=== PATIENT | male | born 1955 | race Hispanic/Latino ===

== ENCOUNTER 2016-12-02 00:36 | Emergency (ER) | payer MEDICARE, OTHER ==
[2016-12-02 00:43] VITALS: BMI 26.6
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
[2016-12-02 05:59] VITALS: BP 118/72; PULSE 84; RESP 16; TEMP 98.2; O2SAT 98
== END 2016-12-02 06:08 | disposition home or self-care (01) ==
LOC: H.ER 00:36
DX: F10.10 Alcohol abuse, uncomplicated (principal); I10 Essential (primary) hypertension

== ENCOUNTER 2017-09-02 10:10 | Emergency (ER) | payer MEDICARE, OTHER ==
[2017-09-02 10:35] VITALS: BMI 24.7
[2017-09-02 10:37] VITALS: O2SAT 96
--- NOTE | 2017-09-02 12:55 | ED PDOC ---
HPI: General Adult Time Seen by Provider: 09/02/17 10:58 Chief Complaint (Nursing): Abnormal Skin Integrity History Per: Patient Additional Complaint(s): Pt. states on 08/31/2017 he had a removal of a spinal implant device for pain done by Dr. Narvaez in [facility]. States when got home yesterday he noticed that there was blood on his shirt. Also states he has been unable to get the prescribed Keflex 500mg from the pharmacy. Denies pain, fever, discharge. Past Medical History Reviewed: Historical Data, Nursing Documentation, Vital Signs Vital Signs: Last Vital Signs Temp 97.8 F 09/02/17 10:35 Pulse 80 09/02/17 10:35 Resp 20 09/02/17 10:35 BP 181/95 H 09/02/17 10:35 Pulse Ox 96 09/02/17 10:35 - Medical History PMH: Arthritis, Back Problems, HTN Denies: Anemia - Surgical History Other surgeries: spinal implant surgery - Family History Family History: States: No Known Family Hx - Home Medications Home Medications: Ambulatory Orders Medication Instructions Recorded Unobtainable 12/02/16 - Allergies Allergies/Adverse Reactions: Allergies Allergy/AdvReac Type Severity Reaction Status Date / Time No Known Allergies Allergy Verified 09/02/17 10:54 Review of Systems ROS Statement: Except As Marked, All Systems Reviewed And Found Negative Physical Exam - Physical Exam Appears: Positive for: Well, Non-toxic, No Acute Distress Skin: Positive for: Normal Color, Warm. Negative for: Rash Eye Exam: Positive for: Normal appearance Back: Positive for: Other (Both wounds with telfa and tagaderm dressing which has mild amount of bood. After removal of dressing back exam showed: Vertical healing stapled wound on LS spine without fluctuance, tenderness, bleeding, redness, warmth, dehisence, or discharge; R lower back area with healing stapled wound without bleeding, discharge, tenderness, fluctuance, tenderness, redness, warmth) Neurologic/Psych: Positive for: Alert, Oriented - ECG O2 Sat by Pulse Oximetry: 96 - Progress ED Course And Treament: New tagaderm and telfa dressing placed on wounds. Advised to f/u with Dr. Narvaez (09/12/2017 as scheduled) but should call him today. Keflex 500mg PO ordered. Also told to obtain Keflex from pharmacy. Disposition - Clinical Impression Clinical Impression: Visit for wound check - Patient ED Disposition Is Patient to be Admitted: No - Disposition Disposition: Routine/Home Disposition Time: 11:50 Condition: STABLE Additional Instructions: Follow up with Dr. Narvaez for further evaluation. Return to ED immediately for any concerns or questions. Instructions: Wound Care (DC) Forms: [employer] (Romanian) Print Language: BULGARIAN
[2017-09-02 15:11] VITALS: BP 145/78; PULSE 85; RESP 16; TEMP 98.3
== END 2017-09-02 12:24 | disposition home or self-care (01) ==
LOC: H.ER 10:10
DX: Z48.01 Encounter for change or removal of surgical wound dressing (principal); Z98.890 Other specified postprocedural states; I10 Essential (primary) hypertension

== ENCOUNTER 2017-11-09 21:12 | Emergency (ER) | payer OTHER ==
[2017-11-09 21:12] VITALS: BMI 25.1
[2017-11-09 23:41] LABS: BASO # 0.1 K/uL (0.0-0.2); BASO % 1.2 % (0.0-2.0); EOS # 0.2 K/uL (0.0-0.7); EOS % 2.8 % (0.0-4.0); HEMOGLOBIN 12.9 g/dL (12.0-18.0); LYMPH # 2.4 K/uL (1.0-4.3); LYMPH % 37.2 % (20.0-40.0); MEAN CORPUSCULAR HEMOGLOBIN 31.5 pg (27.0-31.0); MEAN CORPUSCULAR HGB CONC 33.9 g/dL (33.0-37.0); MEAN PLATELET VOLUME 9.2 fl (7.2-11.7); MONO # 1.1 K/uL (0.0-0.8); MONO % 16.8 % (0.0-10.0); NEUT # 2.7 K/uL (1.8-7.0); RBC 4.1 Mil/uL (4.40-5.90); RED CELL DISTRIBUTION WIDTH 14.5 % (11.5-14.5); WHITE BLOOD COUNT 6.4 K/uL (4.8-10.8)
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
[2017-11-09 23:53] LABS: ALB/GLOB RATIO 1.2 (1.0-2.1); ALBUMIN 4.3 g/dL (3.5-5.0); ALT/SGPT 81 U/L (21-72); AST/SGOT 92 U/L (17-59); BLOOD UREA NITROGEN 35 mg/dl (9-20); CALCIUM 9.7 mg/dL (8.4-10.2); GFR NON-AFRICAN AMERICAN 28
[2017-11-09] MEDS ORDERED: Sodium Chloride 0.9% 1,000 ML IV STA (23:56)
--- NOTE | 2017-11-10 00:03 | ED PDOC ---
- Laboratory Results Result Diagrams: 11/09/17 23:35 11/09/17 23:35 - ECG O2 Sat by Pulse Oximetry: 97 (RA) Pulse Ox Interpretation: Normal Medical Decision Making Medical Decision Makin:00 --care endorsed to this provider by Dr. Villela pending reevaluation and final disposition. 00:55 --Ativan 2 mg IVP --1:1 observation --urinary catheter 02:35 --Haldol 5 mg IV 06:26 --Patient is stable for discharge. Diagnosis is substance abuse. Return precautions provided. Scribe Attestation: Documented by Angie Damon acting as a scribe for Rajesh Noble MD Provider Scribe Attestation: All medical record entries made by the Scribe were at my direction and personally dictated by me. I have reviewed the chart and agree that the record accurately reflects my personal performance of the history, physical exam, medical decision making, and the department course for this patient. I have also personally directed, reviewed, and agree with the discharge instructions and disposition. Disposition - Clinical Impression Clinical Impression: Substance abuse - POA Present On Arrival: None - Disposition Disposition: Routine/Home Disposition Time: 06:26 Condition: STABLE Forms: [employer] (Lebanese)
[2017-11-10 03:24] VITALS: RESP 18
[2017-11-10 07:04] VITALS: BP 139/86; PULSE 68; TEMP 97.5
[2017-11-10 07:23] LABS: SQUAMOUS EPITHIAL < 1 /hpf (0-5); URINE BACTERIA RARE (<OCC); URINE BILIRUBIN NEGATIVE (NEGATIVE); URINE BLOOD NEGATIVE (NEGATIVE); URINE CLARITY SLIGHTY-CLOUDY (Clear); URINE COLOR YELLOW (YELLOW); URINE GLUCOSE (UA) NEG (Normal); URINE HYALINE CAST >20 /hpf (0-2); URINE LEUKOCYTE ESTERASE NEG Leu/uL (Negative); URINE PROTEIN NEGATIVE (NEGATIVE); URINE UROBILINOGEN 0.2-1.0 mg/dL (0.2-1.0)
[2017-11-10 07:36] LABS: BARBITURATES, UR NEGATIVE (NEGATIVE); BENZODIAZEPINES, UR POSITIVE (NEGATIVE); OPIATES, UR POSITIVE (NEGATIVE); PHENCYCLIDINE, UR NEGATIVE (NEGATIVE)
--- NOTE | 2017-11-10 08:25 | CARD ---
APPROVED REPORT Date of service: 11/09/2017 <Conclusion> Normal sinus rhythm Normal ECG
--- NOTE | 2017-11-10 09:35 | CT ---
Date of service: 11/09/2017 PROCEDURE: CT HEAD WITHOUT CONTRAST. HISTORY: change in mental status COMPARISON: Comparison made with prior study dated 03/02/2016. TECHNIQUE: Axial computed tomography images were obtained through the head/brain without intravenous contrast. Radiation dose: Total exam DLP = 894.78 mGy-cm. This CT exam was performed using one or more of the following dose reduction techniques: Automated exposure control, adjustment of the mA and/or kV according to patient size, and/or use of iterative reconstruction technique. FINDINGS: HEMORRHAGE: No acute parenchymal, subarachnoid or extra-axial hemorrhage. BRAIN: Mild chronic periventricular white matter ischemic changes seen extending peripherally into deep and to a lesser degree subcortical white matter both cerebral hemispheres. Note the possibility of a small hyperacute infarct cannot be excluded on this exam. Mild generalized volume loss VENTRICLES: No obstructive hydrocephalus. CALVARIUM: Unremarkable. PARANASAL SINUSES: Unremarkable as visualized. No significant inflammatory changes. MASTOID AIR CELLS: Unremarkable as visualized. No inflammatory changes. OTHER FINDINGS: Questionable mild left facial soft tissue swelling IMPRESSION: No acute intracranial hemorrhage. Mild chronic periventricular white matter ischemic changes. Note the possibility of a small hyperacute infarct can't be excluded on this exam. Mild generalized volume loss
[2017-11-11 01:59] VITALS: O2SAT 97
== END 2017-11-10 10:15 | disposition home or self-care (01) ==
LOC: H.ER 21:12
DX: I10 Essential (primary) hypertension (principal); F19.10 Other psychoactive substance abuse, uncomplicated
CPT/HCPCS: 70450; 80053; 81003; 82948; 85025; 87086; 93005; 96361; 96372; 96374; 99285; G0480; J1630; J2060; J7030

== ENCOUNTER 2017-11-21 20:56 | Emergency (ER) | payer OTHER ==
[2017-11-21 20:56] VITALS: BMI 25.1
[2017-11-21 21:00] VITALS: O2SAT 99
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
[2017-11-21 22:51] LABS: BASO # 0.1 K/uL (0.0-0.2); BASO % 1.1 % (0.0-2.0); EOS # 0.2 K/uL (0.0-0.7); EOS % 2.4 % (0.0-4.0); HEMOGLOBIN 12.7 g/dL (12.0-18.0); LYMPH # 2.5 K/uL (1.0-4.3); MEAN CELL VOLUME 93.7 fl (80.0-94.0); MEAN CORPUSCULAR HEMOGLOBIN 31.6 pg (27.0-31.0); MEAN CORPUSCULAR HGB CONC 33.7 g/dL (33.0-37.0); MEAN PLATELET VOLUME 9.4 fl (7.2-11.7); MONO # 0.6 K/uL (0.0-0.8); MONO % 8.4 % (0.0-10.0); NEUT # 4.2 K/uL (1.8-7.0); NEUT % 55.1 % (50.0-75.0); NRBC % 0.1 % (0.0-0.0); RBC 4.03 Mil/uL (4.40-5.90); RED CELL DISTRIBUTION WIDTH 14.4 % (11.5-14.5); WHITE BLOOD COUNT 7.7 K/uL (4.8-10.8)
[2017-11-21 23:02] LABS: ALB/GLOB RATIO 1.2 (1.0-2.1); ALBUMIN 3.9 g/dL (3.5-5.0); ALT/SGPT 291 U/L (21-72); AST/SGOT 309 U/L (17-59); BLOOD UREA NITROGEN 14 mg/dl (9-20); CALCIUM 9.4 mg/dL (8.4-10.2); GFR NON-AFRICAN AMERICAN > 60
[2017-11-21] MEDS ORDERED: Lidocaine/Epi 1% 1:100000 20 ML IJ ONE (23:23)
[2017-11-21] MEDS ORDERED: Iohexol 240 (50 ml) ONE (23:35)
[2017-11-21] MEDS ORDERED: Lidocaine 1% w Epi 1:100,000 Inj ONE (23:35)
[2017-11-22 00:37] LABS: BARBITURATES, UR NEGATIVE (NEGATIVE); BENZODIAZEPINES, UR POSITIVE (NEGATIVE); OPIATES, UR NEGATIVE (NEGATIVE); PHENCYCLIDINE, UR NEGATIVE (NEGATIVE)
[2017-11-22 02:15] VITALS: BP 149/94; PULSE 99; RESP 16; TEMP 98.1
--- NOTE | 2017-11-22 10:13 | CT ---
Date of service: 11/21/2017 PROCEDURE: CT HEAD WITHOUT CONTRAST. HISTORY: ETOH, head injury COMPARISON: 11/09/2017 fernández TECHNIQUE: Axial computed tomography images were obtained through the head/brain without intravenous contrast. Radiation dose: Total exam DLP = 1021.72 MGy-cm. This CT exam was performed using one or more of the following dose reduction techniques: Automated exposure control, adjustment of the mA and/or kV according to patient size, and/or use of iterative reconstruction technique. FINDINGS: HEMORRHAGE: No intracranial hemorrhage. BRAIN: There are mild chronic microangiopathic changes. There is no mass, mass effect or abnormal extra-axial fluid collection. There is no territorial infarction. The midline sagittal structures are normal. VENTRICLES: There is mild age-related global parenchymal volume loss and proportionate enlargement of the ventricles and cortical sulci. CALVARIUM: There is no calvarial fracture. There is mild right frontal and periorbital soft tissue swelling. PARANASAL SINUSES: Predominantly clear. MASTOID AIR CELLS: Predominantly clear. OTHER FINDINGS: None. IMPRESSION: No acute intracranial abnormality. Mild right frontal and periorbital soft tissue swelling. No other significant interval change.
--- NOTE | 2017-11-22 10:52 | CT ---
Date of service: 11/21/2017 PROCEDURE: CT Cervical Spine without contrast HISTORY: ETOH, injury COMPARISON: None available. TECHNIQUE: Axial computed tomography images were obtained of the cervical spine without the use of intravenous contrast. Coronal and sagittal reformatted images were created and reviewed. Radiation dose: Total exam DLP = 393.74 MGy-cm. This CT exam was performed using one or more of the following dose reduction techniques: Automated exposure control, adjustment of the mA and/or kV according to patient size, and/or use of iterative reconstruction technique. FINDINGS: VERTEBRAE: There are acute nondisplaced fractures in the right 6th inferior articular processes and right 7th superior articular process. . There is mild degenerative anterior listhesis of C3 on C4. There is diffuse bone demineralization. There is no traumatic anterior listhesis. Status post ACDF at C4-5 and C5-6. The craniocervical junction is normal. The atlantoaxial joint is normal. DISCS/SPINAL CANAL/NEURAL FORAMINA: Status post ACDF at C4-5 and C5-6. There is severe degenerative disc disease at C6-7 an C7-T1 with near complete loss of disc height. PARASPINAL SOFT TISSUES: The paraspinous soft tissues are normal. OTHER FINDINGS: There is biapical paraseptal emphysema. IMPRESSION: Acute nondisplaced fractures in the right 6th inferior articular process and 7th superior articular process. No traumatic anterior listhesis. A preliminary report was provided by [facility] services.
--- NOTE | 2017-11-22 11:06 | CT ---
Date of service: 11/21/2017 PROCEDURE: CT MAXILLOFACIAL BONES WITHOUT CONTRAST HISTORY: ETOH, fall COMPARISON: None available. TECHNIQUE: Contiguous axial CT images of the maxillofacial bones were obtained. Coronal and sagittal reformats were generated. Radiation dose: Total exam DLP = 831.34 mGy-cm. This CT exam was performed using one or more of the following dose reduction techniques: Automated exposure control, adjustment of the mA and/or kV according to patient size, and/or use of iterative reconstruction technique. FINDINGS: NASAL BONES: There are old fracture deformities in the nasal bones. ORBITS: No acute fracture. The globes are symmetric. No evidence of retro bulbar or intra bulbar hemorrhage or lens dislocation. There is mild right periorbital soft tissue swelling. PARANASAL SINUSES/ MASTOIDS: Predominantly clear. MAXILLA: No acute maxillofacial fracture. MANDIBLE/ TEMPOROMANDIBULAR JOINTS: No acute fracture in the mandible. There is anterior displacement of the left mandibular condyle. SKULL BASE: Unremarkable. TEMPORAL BONES: Middle ears and mastoid grossly unremarkable. OTHER FINDINGS: None. IMPRESSION: No acute orbital or maxillofacial fracture. Mild right periorbital soft tissue swelling. Anterior displacement of the left mandibular condyle.
== END 2017-11-22 02:10 | disposition home or self-care (01) ==
LOC: H.ER 20:56
DX: F19.10 Other psychoactive substance abuse, uncomplicated (principal); S00.11XA Contusion of right eyelid and periocular area, initial encounter; S01.81XA Laceration without foreign body of other part of head, initial encounter; S12.100A Unspecified displaced fracture of second cervical vertebra, initial encounter for closed fracture; S00.81XA Abrasion of other part of head, initial encounter; Y04.0XXA Assault by unarmed brawl or fight, initial encounter; Y92.89 Other specified places as the place of occurrence of the external cause; I10 Essential (primary) hypertension
CPT/HCPCS: 12011; 70450; 70486; 72125; 80053; 85025; 96372; 99285; G0480; J1885

== ENCOUNTER 2017-11-29 01:15 | Emergency (ER) | payer OTHER ==
[2017-11-29 01:15] VITALS: BMI 25.1
[2017-11-29 01:40] VITALS: RESP 18; TEMP 98.6
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
[2017-11-29 02:44] VITALS: BP 135/87; PULSE 78
[2017-11-29 06:06] VITALS: O2SAT 100
--- NOTE | 2017-11-29 08:18 | RAD ---
Date of service: 11/29/2017 HISTORY: shortness of breath COMPARISON: 02/02/2015 TECHNIQUE: Chest PA and lateral FINDINGS: LUNGS: No interval consolidation. PLEURA: No significant pleural effusion identified. No pneumothorax apparent. CARDIOVASCULAR: Normal heart size. Probable minimal mild pulmonary venous congestion. OSSEOUS STRUCTURES: Bilateral chronic appearing healed rib fracture deformities noted Anterior cervical fusion hardware plate present. Asymmetrically widened left acromioclavicular space possible prior resection lateral clavicle-correlate clinically. VISUALIZED UPPER ABDOMEN: Clips near GE junction OTHER FINDINGS: None. IMPRESSION: Probable minimal-mild pulmonary venous congestion. Other cardiopulmonary pathology noted Chronic appearing osseous changes as detailed
== END 2017-11-29 02:40 | disposition home or self-care (01) ==
LOC: H.ER 01:15
DX: Z48.02 Encounter for removal of sutures (principal); F41.9 Anxiety disorder, unspecified
CPT/HCPCS: 71046; 96372; 99283; J1885

== ENCOUNTER 2017-12-13 16:03 | Emergency (ER) | payer OTHER ==
[2017-12-13 16:03] VITALS: BMI 25.1
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
[2017-12-13 23:00] VITALS: RESP 18
[2017-12-13 23:36] VITALS: BP 122/80; PULSE 78; TEMP 98
[2017-12-14 00:02] VITALS: O2SAT 95
--- NOTE | 2017-12-14 09:03 | CT ---
Date of service: 12/13/2017 PROCEDURE: CT HEAD WITHOUT CONTRAST. HISTORY: fall, head injury COMPARISON: 11/21/2017 TECHNIQUE: Axial computed tomography images were obtained through the head/brain without intravenous contrast. Radiation dose: Total exam DLP = 996.0 mGy-cm. This CT exam was performed using one or more of the following dose reduction techniques: Automated exposure control, adjustment of the mA and/or kV according to patient size, and/or use of iterative reconstruction technique. FINDINGS: HEMORRHAGE: No intracranial hemorrhage. BRAIN: No mass effect or edema. No significant atrophy. Mild chronic periventricular white matter ischemic change. No evidence of acute infarct. VENTRICLES: Unremarkable. No hydrocephalus. CALVARIUM: Unremarkable. PARANASAL SINUSES: Unremarkable as visualized. No significant inflammatory changes. MASTOID AIR CELLS: Unremarkable as visualized. No inflammatory changes. OTHER FINDINGS: None. IMPRESSION: No intracranial mass, hemorrhage or evidence of acute infarct. Mild chronic white matter ischemic change. Otherwise unremarkable examination. The preliminary findings for this examination were reported by [facility] at 8:29 p.m. on 12/13/2017. There is concurrence of this report with the preliminary findings.
== END 2017-12-13 23:35 | disposition home or self-care (01) ==
LOC: H.ER 16:03
DX: F10.129 Alcohol abuse with intoxication, unspecified (principal); S09.90XA Unspecified injury of head, initial encounter; W19.XXXA Unspecified fall, initial encounter; Y92.89 Other specified places as the place of occurrence of the external cause; G89.29 Other chronic pain; I10 Essential (primary) hypertension
CPT/HCPCS: 70450; 99283; G0480

== ENCOUNTER 2018-02-10 14:24 | Emergency (ER) | payer OTHER ==
[2018-02-10 14:24] VITALS: BMI 25.8
[2018-02-10 14:27] VITALS: O2SAT 97
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
[2018-02-10 16:21] VITALS: BP 113/82; PULSE 99; RESP 19; TEMP 98.4
== END 2018-02-10 15:53 | disposition home or self-care (01) ==
LOC: H.ER 14:24
DX: F10.19 Alcohol abuse with unspecified alcohol-induced disorder (principal); Y90.9 Presence of alcohol in blood, level not specified

== ENCOUNTER 2018-02-20 09:43 | Inpatient (IN) | payer MEDICARE, OTHER ==
--- NOTE | 2018-02-20 10:09 | ED PDOC ---
HPI: Neurologic - General Time Seen by Provider: 02/20/18 10:02 Chief Complaint (Nursing): Upper Extremity Problem/Injury Chief Complaint (Provider): Neck pain Source: patient - History of Present Illness Allergies/Adverse Reactions: Allergies No Known Allergies Allergy (Verified 02/23/18 13:02) Home Medications: Ambulatory Orders Prazosin HCl [Minipress] 2 mg PO HS 02/06/18 Zolpidem Tartrate [Ambien Cr] 12.5 mg PO HS 02/06/18 Ascorbic Acid [Vitamin C] 1,000 mg PO DAILY 02/20/18 DULoxetine [Cymbalta] 60 mg PO DAILY 02/20/18 Lisinopril [Zestril] 20 mg PO DAILY 02/20/18 diaZEpam [Valium] 10 mg PO BID 02/20/18 hydroCHLOROthiazide [Microzide] 12.5 mg PO DAILY 02/20/18 Cyclobenzaprine [Flexeril] 10 mg PO Q8 PRN #30 tab 02/22/18 Docusate [Colace] 100 mg PO BID #30 cap 02/22/18 Famotidine [Pepcid] 20 mg PO BID tab 02/23/18 oxyCODONE/Acetaminophen [Percocet 5/325 mg Tab] 1 tab PO Q4 PRN tab 02/23/18 Additional Complaint(s): Pt with h/o multiple cervical surgeries presents with worsening R sided neck pain after falling >1 month ago. Reports neck pain radiates down R arm, "electricity". Past Medical History Reviewed: Nursing Documentation, Vital Signs Vital Signs: Last Vital Signs Temp 97.4 F L 02/20/18 09:53 Pulse 88 02/20/18 09:53 Resp 18 02/20/18 09:53 BP 123/82 02/20/18 09:53 Pulse Ox 99 02/20/18 09:53 - Medical History PMH: Arthritis (general,hands), Back Problems, Depression, HTN, Post Traumatic Stress Disorder, Chronic Pain (neck) Denies: Anemia, Chronic Kidney Disease - Surgical History Surgical History: Appendectomy, Back Surgery, Cholecystectomy, Hernia Repair - Family History Family History: States: Unknown Family Hx - Social History Current smoker - smoking cessation education provided: No Alcohol: Occasional - Immunization History Hx Tetanus Toxoid Vaccination: Yes Hx Influenza Vaccination: No Hx Pneumococcal Vaccination: No - Home Medications Home Medications: Ambulatory Orders Medication Instructions Recorded Prazosin HCl [Minipress] 2 mg PO HS 02/06/18 Zolpidem Tartrate [Ambien Cr] 12.5 mg PO HS 02/06/18 Ascorbic Acid [Vitamin C] 1,000 mg PO DAILY 02/20/18 DULoxetine [Cymbalta] 60 mg PO DAILY 02/20/18 Lisinopril [Zestril] 20 mg PO DAILY 02/20/18 diaZEpam [Valium] 10 mg PO BID 02/20/18 hydroCHLOROthiazide [Microzide] 12.5 mg PO DAILY 02/20/18 Cyclobenzaprine [Flexeril] 10 mg PO Q8 PRN #30 tab 02/22/18 Docusate [Colace] 100 mg PO BID #30 cap 02/22/18 Famotidine [Pepcid] 20 mg PO BID tab 02/23/18 oxyCODONE/Acetaminophen [Percocet 1 tab PO Q4 PRN tab 02/23/18 5/325 mg Tab] - Allergies Allergies/Adverse Reactions: Allergies Allergy/AdvReac Type Severity Reaction Status Date / Time No Known Allergies Allergy Verified 02/23/18 13:02 Review of Systems Constitutional: Negative for: Fever Cardiovascular: Negative for: Chest Pain Respiratory: Negative for: Cough, Shortness of Breath Gastrointestinal: Negative for: Abdominal Pain Musculoskeletal: Positive for: Neck Pain, Arm Pain Skin: Negative for: Rash, Lesions Neurological: Negative for: Weakness, Numbness, Headache Physical Exam - Reviewed Nursing Documentation Reviewed: Yes Vital Signs Reviewed: Yes - Physical Exam Appears: Positive for: Well, No Acute Distress Head Exam: Positive for: ATRAUMATIC, NORMAL INSPECTION Skin: Positive for: Normal Color, Warm, Dry Neck: Positive for: Supple, Decreased ROM, Pain On Movement Of Neck Cardiovascular/Chest: Positive for: Regular Rate, Rhythm Respiratory: Positive for: Normal Breath Sounds Extremity: Positive for: Normal ROM Neurologic/Psych: Positive for: Alert, data support analyst II-XII, Oriented. Negative for: Motor/Sensory Deficits, Aphasia, Facial Droop - Laboratory Results Result Diagrams: 02/23/18 05:05 02/23/18 05:05 - ECG O2 Sat by Pulse Oximetry: 99 Medical Decision Making Medical Decision Makin yo male with acute on chronic neck pain. - labs - EKG - CXR Disposition - Clinical Impression Clinical Impression: Intractable cervical neuropathic pain - Patient ED Disposition Is Patient to be Admitted: Yes - Disposition Disposition Time: 10:13 Condition: STABLE - Pt Status Changed To: Hospital Disposition Of: Inpatient - Admit Certification Admit to Inpatient:: After my assessment, the patient will require hospitalization for at least two midnights. This is because of the severity of symptoms shown, intensity of services needed, and/or the medical risk in this patient being treated as an outpatient. - POA Present On Arrival: Falls Or Trauma
[2018-02-20 10:48] LABS: BASO % 0.6 % (0.0-2.0); EOS # 0.2 K/uL (0.0-0.7); EOS % 2.9 % (0.0-4.0); HEMOGLOBIN 14.1 g/dL (12.0-18.0); LYMPH # 1.4 K/uL (1.0-4.3); LYMPH % 25.3 % (20.0-40.0); MEAN CELL VOLUME 99.6 fl (80.0-94.0); MEAN CORPUSCULAR HEMOGLOBIN 32.8 pg (27.0-31.0); MEAN CORPUSCULAR HGB CONC 32.9 g/dL (33.0-37.0); MEAN PLATELET VOLUME 10.2 fl (7.2-11.7); MONO # 0.7 K/uL (0.0-0.8); MONO % 12.7 % (0.0-10.0); NEUT # 3.1 K/uL (1.8-7.0); NEUT % 58.5 % (50.0-75.0); NRBC % 0.1 % (0.0-0.0); PROTHROMBIN TIME 11.7 Seconds (9.8-13.1); RBC 4.29 Mil/uL (4.40-5.90); RED CELL DISTRIBUTION WIDTH 14.7 % (11.5-14.5); WHITE BLOOD COUNT 5.3 K/uL (4.8-10.8)
[2018-02-20 10:57] LABS: ALB/GLOB RATIO 1.1 (1.0-2.1); ALBUMIN 4.8 g/dL (3.5-5.0); ALT/SGPT 69 U/L (21-72); AST/SGOT 58 U/L (17-59); BLOOD UREA NITROGEN 26 mg/dl (9-20); CALCIUM 9.8 mg/dL (8.4-10.2); GFR NON-AFRICAN AMERICAN > 60
--- NOTE | 2018-02-20 11:27 | RAD ---
Date of service: 02/20/2018 HISTORY: Preoperative examination COMPARISON: 11/19/2017 TECHNIQUE: Chest PA and lateral FINDINGS: LINES AND TUBES: None. LUNG AND PLEURA: The lungs are well inflated and clear. There is linear atelectasis in the left mid lung and base. No pleural effusion or pneumothorax. HEART AND MEDIASTINUM: The heart is not enlarged. No aortic atherosclerotic calcification present. The hilar and mediastinal contours are within normal limits. SKELETAL STRUCTURES: There are old fracture deformities in the right posterior 5,6,7 and 8th ribs. VISUALIZED UPPER ABDOMEN: Normal. OTHER FINDINGS: There are multiple surgical clips in the epigastrium and coils in the left upper quadrant. IMPRESSION: No active pulmonary disease.
[2018-02-20 12:02] LABS: SQUAMOUS EPITHIAL < 1 /hpf (0-5); URINE BILIRUBIN NEGATIVE (NEGATIVE); URINE BLOOD NEGATIVE (NEGATIVE); URINE CLARITY CLEAR (Clear); URINE COLOR YELLOW (YELLOW); URINE GLUCOSE (UA) NEG (NEGATIVE); URINE LEUKOCYTE ESTERASE NEG Leu/uL (Negative); URINE PROTEIN NEGATIVE (NEGATIVE); URINE UROBILINOGEN 0.2-1.0 mg/dL (0.2-1.0)
[2018-02-20] MEDS ORDERED: Oxycodone/Acetaminophen 5/325 mg Tab PO PRN (14:01)
[2018-02-20] MEDS: Oxycodone/Acetaminophen 5/325 mg Tab PO PRN ×2 (14:35→22:41)
[2018-02-20] MEDS ORDERED: Oxycodone/Acetaminophen 5/325 mg Tab ONE ×2 (14:36→22:21)
--- NOTE | 2018-02-20 17:18 | CP.PCM.HP ---
History of Present Illness - History of Present Illness History of Present Illness: HPI: Pt is a 62 y/o male with hx of traumatic fall 4 years ago resulting in multiple injuries including rotator cuff tear, cervical fracture, cervical and lumbar disc herniation presents to ED for scheduled cervical surgery with Dr. Gray. Pt reports mild neck pain exacerbated when flexing or rotating head. Also reports low back pain with shooting sensation down right leg. All symptoms reported are chronic. Otherwise denies cough, cp, sob, LE edema, fever/chills, n/v abdominal pain, dysuria. With regards to physcial activity, states he can walk around the house to complete ADL's and briskly for 4 blocks (flat surface) without shortness of breath. Has difficulty climbing stairs due to MSK chronic pain. PMD: Dr. Richey PMHX: Chronic neck pain, C spine fsusions, Cervical Herniation w/ Sciatica, Residual right sided weakness,Reports having a cardiac cath (pharmacological) procedure 4 years ago with one stent placed. Was told he needed another cardiac procedure but never followed up. Denies chronic lung problems. Depression. 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 Denies heavy alcohol use but has had multiple ED visits for acute ETOH intoxication Present on Admission - Present on Admission Any Indicators Present on Admission: No Past Patient History - Infectious Disease Hx of Infectious Diseases: None - Past Medical History & Family History Past Medical History?: Yes - Past Social History Smoking Status: Never Smoked - CARDIAC Hx Hypertension: Yes - PULMONARY Hx Respiratory Disorders: No - NEUROLOGICAL Hx Neurological Disorder: Yes Hx Dizziness: Yes - HEENT Hx HEENT Problems: No - RENAL Hx Chronic Kidney Disease: No - ENDOCRINE/METABOLIC Hx Endocrine Disorders: No - HEMATOLOGICAL/ONCOLOGICAL Hx Anemia: No - INTEGUMENTARY Hx Dermatological Problems: No - MUSCULOSKELETAL/RHEUMATOLOGICAL Hx Arthritis: Yes (general,hands) - GASTROINTESTINAL Hx Gastrointestinal Disorders: No - GENITOURINARY/GYNECOLOGICAL Hx Genitourinary Disorders: No - PSYCHIATRIC Hx Depression: Yes Hx Post Traumatic Stress Disorder: Yes Hx Substance Use: No - SURGICAL HISTORY Hx Appendectomy: Yes Hx Cholecystectomy: Yes - ANESTHESIA Hx Anesthesia: Yes Hx Anesthesia Reactions: No Hx Malignant Hyperthermia: No Meds Allergies/Adverse Reactions: Allergies Allergy/AdvReac Type Severity Reaction Status Date / Time No Known Allergies Allergy Verified 02/10/18 14:26 Physical Exam - Constitutional Appears: No Acute Distress - Head Exam Head Exam: NORMAL INSPECTION - Eye Exam Eye Exam: Normal appearance - ENT Exam ENT Exam: Mucous Membranes Moist - Neck Exam Neck exam: Negative for: Full Rom (limited by pain), Tenderness - Respiratory Exam Respiratory Exam: Clear to Auscultation Bilateral. absent: Rales, Wheezes - Cardiovascular Exam Cardiovascular Exam: REGULAR RHYTHM, +S1, +S2. absent: Systolic Murmur - GI/Abdominal Exam GI & Abdominal Exam: Normal Bowel Sounds, Soft - Extremities Exam Extremities exam: Negative for: pedal edema - Neurological Exam Neurological exam: Alert, Oriented x3 - Psychiatric Exam Psychiatric exam: Normal Affect - Skin Skin Exam: Normal Color Results - Vital Signs Recent Vital Signs: Last Vital Signs Temp 98.1 F 02/20/18 14:27 Pulse 74 02/20/18 14:27 Resp 18 02/20/18 14:27 BP 118/70 02/20/18 14:27 Pulse Ox 98 02/20/18 14:27 - Labs Result Diagrams: 02/20/18 10:15 02/20/18 10:15 Labs: Laboratory Results - last 24 hr 02/20/18 02/20/18 02/20/18 10:15 10:15 10:15 WBC 5.3 RBC 4.29 L Hgb 14.1 Hct 42.8 MCV 99.6 H D MCH 32.8 H MCHC 32.9 L RDW 14.7 H Plt Count 193 MPV 10.2 Neut % (Auto) 58.5 Lymph % (Auto) 25.3 [place] % (Auto) 12.7 H Eos % (Auto) 2.9 Baso % (Auto) 0.6 Neut # (Auto) 3.1 Lymph # (Auto) 1.4 [place] # (Auto) 0.7 Eos # (Auto) 0.2 Baso # (Auto) 0.0 PT INR APTT Sodium 136 Potassium 4.1 Chloride 99 Carbon Dioxide 26 Anion Gap 15 BUN 26 H Creatinine 0.9 Est GFR ( Amer) > 60 Est GFR (Non-Af Amer) > 60 Random Glucose 121 H Calcium 9.8 Total Bilirubin 0.5 AST 58 ALT 69 Alkaline Phosphatase 168 H Total Protein 9.3 H Albumin 4.8 Globulin 4.5 H Albumin/Globulin Ratio 1.1 Urine Color Urine Clarity Urine pH Ur Specific [place] Urine Protein Urine Glucose (UA) Urine Ketones Urine Blood Urine Nitrate Urine Bilirubin Urine Urobilinogen Ur Leukocyte Esterase Urine RBC (Auto) Urine Microscopic WBC Ur Squamous Epith Cells Alcohol, Quantitative < 10 Blood Type O POSITIVE Antibody Screen Negative BBK History Checked No verified bt 02/20/18 02/20/18 10:15 11:50 WBC RBC Hgb Hct MCV MCH MCHC RDW Plt Count MPV Neut % (Auto) Lymph % (Auto) [place] % (Auto) Eos % (Auto) Baso % (Auto) Neut # (Auto) Lymph # (Auto) [place] # (Auto) Eos # (Auto) Baso # (Auto) PT 11.7 INR 1.0 APTT 51.0 H Sodium Potassium Chloride Carbon Dioxide Anion Gap BUN Creatinine Est GFR ( Amer) Est GFR (Non-Af Amer) Random Glucose Calcium Total Bilirubin AST ALT Alkaline Phosphatase Total Protein Albumin Globulin Albumin/Globulin Ratio Urine Color Yellow Urine Clarity Clear Urine pH 6.0 Ur Specific [place] 1.013 Urine Protein Negative Urine Glucose (UA) Neg Urine Ketones Negative Urine Blood Negative Urine Nitrate Negative Urine Bilirubin Negative Urine Urobilinogen 0.2-1.0 Ur Leukocyte Esterase Neg Urine RBC (Auto) 1 Urine Microscopic WBC 1 Ur Squamous Epith Cells < 1 Alcohol, Quantitative Blood Type Antibody Screen BBK History Checked Assessment & Plan - Assessment and Plan (Free Text) Assessment: Pt is a 62 y/o male with hx of traumatic fall 4 years ago resulting in multiple injuries including rotator cuff tear, cervical fracture, cervical and lumbar d isc herniation presents to ED for scheduled cervical surgery with Dr. Gray. -Not medically cleared -Pt has significant Cardiac history, CAD w/ PCI, poor f/u, not on ASA or Statin -EKG in ED reviewed, no acute ischemic changes but Q waves seen which may be sign so previous infarct -Cardiology Consulted, Dr. Bey, aware of pt. -Cxray, no acute findings -Otherwise hemodynamically stable -Labs wnl -CIWA 0 -Medical clearance pending cardiac clearance -NPO at midnight -Pain meds as ordered d/w Dr. Carter
--- NOTE | 2018-02-20 19:03 | CARD ---
APPROVED REPORT Date of service: 02/20/2018 EKG Measurement Heart [id number] <Conclusion> Normal sinus rhythm Normal ECG
--- NOTE | 2018-02-20 21:44 | CP.PCM.CON ---
History of Present Illness - History of Present Illness History of Present Illness: I was asked to see patient by Dr Carter. Patient seen 02/21/48 2100 Patient is a 62 year old male with HTN who requires cervical neck surgery. He denies chest pain or dysnea. He states years ago he underwent cardac cath and there as no stenosis. He is scheduled of cerval neck curgery. He denies post anesthesia problems Review of Systems - Constitutional Constitutional: absent: As Per HPI, Anorexia, Chills, Daytime Sleepiness, Excessive Sweating, Fatigue, Fever, Frequent Falls, Headache, Increased Appetite, Lethargy, Malaise, Night Sweats, Snoring, Sleep Apnea, Weight Gain, Weight Loss, Weakness, Other - EENT Eyes: absent: As Per HPI, Blind Spots, Blurred Vision, Change in Vision, Decreased Night Vision, Diplopia, Discharge, Dry Eye, Exophthalmos, Floaters, Irritation, Itchy Eyes, Loss of Peripheral Vision, Pain, Photophobia, Requires Corrective Lenses, Sees Flashes, Spots in Vision, Tunnel Vision, Other Visual Disturbances, Loss of Vision, Other Ears: absent: As Per HPI, Decreased Hearing, Ear Discharge, Ear Pain, Tinnitus, Abnormal Hearing, Disequilibrium, Dizziness, Other Nose/Mouth/Throat: absent: As Per HPI, Epistaxis, Nasal Congestion, Nasal Discha rge, Nasal Obstruction, Nasal Trauma, Nose Pain, Post Nasal Drip, Sinus Pain, Sinus Pressure, Bleeding Gums, Change in Voice, Dental Pain, Dry Mouth, Dysphagia, Halitosis, Hoarsness, Lip Swelling, Mouth Lesions, Mouth Pain, Odynophagia, Sore Throat, Throat Swelling, Tongue Swelling, Facial Pain, Neck Pain, Neck Mass, Other - Cardiovascular Cardiovascular: absent: As Per HPI, Acrocyanosis, Chest Pain, Chest Pain at Rest, Chest Pain with Activity, Claudication, Diaphoresis, Dyspnea, Dyspnea on Exertion, Edema, Irregular Heart Rhythm, Pain Radiating to Arm/Neck/Jaw, Leg Edema, Leg Ulcers, Lightheadedness, Orthopnea, Palpitations, Paroxysmal Nocturnal Dyspnea, Pedal Edema, Radiating Pain, Rapid Heart Rate, Slow Heart Rate, Syncope, Other - Respiratory Respiratory: absent: As Per HPI, Cough, Dyspnea, Hemoptysis, Dyspnea on Exertion, Wheezing, Snoring, Stridor, Pain on Inspiration, Chest Congestion, Excessive Mucous Production, Change in Mucous Color, Pain with Coughing, Other - Gastrointestinal Gastrointestinal: absent: As Per HPI, Abdominal Pain, Belching, Bloating, Change in Bowel Habits, Change in Stool Character, Coffee Ground Emesis, Constipation, Cramping, Diarrhea, Dyspepsia, Dysphagia, Early Satiety, Excessive Flatus, Fecal Incontinence, Heartburn, Hematemesis, Hematochezia, Loose Stools, Melena, Nausea, Odynophagia, Temesmus, Vomiting, Other - Musculoskeletal Musculoskeletal: Neck Pain - Integumentary Integumentary: absent: As Per HPI, Acne, Alopecia, Bleeding Lesions, Change in Hair, Change in Nails, Change in Pigmentation, Changing Lesions, Dry Skin, Erythema, Furuncle, Hirsutism, Lesions, New Lesions, Non-Healing Lesions, Photosensitivity, Pruritus, Rash, Skin Pain, Skin Ulcer, Sores, Striae, Swelling, Unusual Bruising, Wounds, Jaundice, Other - Neurological Neurological: absent: As Per HPI, Abnormal Gait, Abnormal Hearing, Abnormal Movements, Abnormal Speech, Behavioral Changes, Burning Sensations, Confusion, Convulsions, Disequilibrium, Dizziness, Numbness, Focal Weakness, Frequent Falls, Headaches, Lack of Coordination, Loss of Vision, Memory Loss, Paresthesias, Radicular Pain, Restless Legs, Sensory Deficit, Syncope, Tingling, Tremor, Vertigo, Weakness, Other Visual Disturbances, Other - Psychiatric Psychiatric: absent: As Per HPI, Abnormal Sleep Pattern, Anhedonia, Anxiety, Auditory Hallucinations, Behavioral Changes, Change in Appetite, Change in Libido, Confusion, Depression, Difficulty Concentrating, Hallucinations, Homicidal Ideation, Hopelessness, Irritability, Memory Loss, Mood Swings, Panic Attacks, Paranoia, Suicidal Ideation, Visual Hallucinations, Tactile Marcial lucinations, Other - Endocrine Endocrine: absent: As Per HPI, Change in Body Appearance, Change in Libido, Cold Intolorance, Deepening of Voice, Excessive Sweating, Fatigue, Flushing, Heat Intolorance, Increase in Ring/Shoe/Hat Size, Palpitations, Polydipsia, P olyphagia, Polyuria, Other - Hematologic/Lymphatic Hematologic: absent: As Per HPI, Easy Bleeding, Easy Bruising, Lymphadenopathy, Other Past Patient History - Infectious Disease Hx of Infectious Diseases: None - Past Medical History & Family History Past Medical History?: Yes - Past Social History Smoking Status: Never Smoked - CARDIAC Hx Hypertension: Yes - PULMONARY Hx Respiratory Disorders: No - NEUROLOGICAL Hx Neurological Disorder: Yes Hx Dizziness: Yes - HEENT Hx HEENT Problems: No - RENAL Hx Chronic Kidney Disease: No - ENDOCRINE/METABOLIC Hx Endocrine Disorders: No - HEMATOLOGICAL/ONCOLOGICAL Hx Anemia: No - INTEGUMENTARY Hx Dermatological Problems: No - MUSCULOSKELETAL/RHEUMATOLOGICAL Hx Arthritis: Yes (general,hands) - GASTROINTESTINAL Hx Gastrointestinal Disorders: No - GENITOURINARY/GYNECOLOGICAL Hx Genitourinary Disorders: No - PSYCHIATRIC Hx Depression: Yes Hx Post Traumatic Stress Disorder: Yes Hx Substance Use: No - SURGICAL HISTORY Hx Appendectomy: Yes Hx Cholecystectomy: Yes - ANESTHESIA Hx Anesthesia: Yes Hx Anesthesia Reactions: No Hx Malignant Hyperthermia: No Meds Allergies/Adverse Reactions: Allergies Allergy/AdvReac Type Severity Reaction Status Date / Time No Known Allergies Allergy Verified 02/10/18 14:26 - Medications Medications: Current Medications Acetaminophen (Tylenol 325mg Tab) 650 mg PO Q6 PRN PRN Reason: Pain, Mild (1-3) Diazepam (Valium) 10 mg PO BID [facility] Duloxetine HCl (Cymbalta) 60 mg PO DAILY [facility] Famotidine (Pepcid) 20 mg PO BID [facility] Last Admin: 02/20/18 20:00 Dose: 20 mg Hydrochlorothiazide (Microzide) 12.5 mg PO DAILY [facility] Lisinopril (Zestril) 20 mg PO DAILY [facility] Oxycodone/Acetaminophen (Percocet 5/325 Mg Tab) 1 tab PO Q4 PRN PRN Reason: Pain, moderate (4-7) Stop: 02/23/18 14:02 Oxycodone/Acetaminophen (Percocet 5/325 Mg Tab) 2 tab PO Q6 PRN PRN Reason: Pain, severe (8-10) Stop: 02/23/18 14:05 Last Admin: 02/20/18 14:35 Dose: 2 tab Prazosin HCl (Minipress) 2 mg PO HS [facility] Results - Vital Signs Recent Vital Signs: Last Vital Signs Temp 98.1 F 02/20/18 14:27 Pulse 80 02/20/18 19:50 Resp 18 02/20/18 19:50 BP 104/79 02/20/18 19:50 Pulse Ox 97 02/20/18 19:50 - Labs Result Diagrams: 02/20/18 10:15 02/20/18 10:15 Labs: Laboratory Results - last 24 hr 02/20/18 02/20/18 02/20/18 10:15 10:15 10:15 WBC 5.3 RBC 4.29 L Hgb 14.1 Hct 42.8 MCV 99.6 H D MCH 32.8 H MCHC 32.9 L RDW 14.7 H Plt Count 193 MPV 10.2 Neut % (Auto) 58.5 Lymph % (Auto) 25.3 [place] % (Auto) 12.7 H Eos % (Auto) 2.9 Baso % (Auto) 0.6 Neut # (Auto) 3.1 Lymph # (Auto) 1.4 [place] # (Auto) 0.7 Eos # (Auto) 0.2 Baso # (Auto) 0.0 PT INR APTT Sodium 136 Potassium 4.1 Chloride 99 Carbon Dioxide 26 Anion Gap 15 BUN 26 H Creatinine 0.9 Est GFR ( Amer) > 60 Est GFR (Non-Af Amer) > 60 Random Glucose 121 H Calcium 9.8 Total Bilirubin 0.5 AST 58 ALT 69 Alkaline Phosphatase 168 H Total Protein 9.3 H Albumin 4.8 Globulin 4.5 H Albumin/Globulin Ratio 1.1 Urine Color Urine Clarity Urine pH Ur Specific [place] Urine Protein Urine Glucose (UA) Urine Ketones Urine Blood Urine Nitrate Urine Bilirubin Urine Urobilinogen Ur Leukocyte Esterase Urine RBC (Auto) Urine Microscopic WBC Ur Squamous Epith Cells Alcohol, Quantitative < 10 Blood Type O POSITIVE Blood Type Confirm Antibody Screen Negative BBK History Checked No verified bt 02/20/18 02/20/18 02/20/18 10:15 10:45 11:50 WBC RBC Hgb Hct MCV MCH MCHC RDW Plt Count MPV Neut % (Auto) Lymph % (Auto) [place] % (Auto) Eos % (Auto) Baso % (Auto) Neut # (Auto) Lymph # (Auto) [place] # (Auto) Eos # (Auto) Baso # (Auto) PT 11.7 INR 1.0 APTT 51.0 H Sodium Potassium Chloride Carbon Dioxide Anion Gap BUN Creatinine Est GFR ( Amer) Est GFR (Non-Af Amer) Random Glucose Calcium Total Bilirubin AST ALT Alkaline Phosphatase Total Protein Albumin Globulin Albumin/Globulin Ratio Urine Color Yellow Urine Clarity Clear Urine pH 6.0 Ur Specific [place] 1.013 Urine Protein Negative Urine Glucose (UA) Neg Urine Ketones Negative Urine Blood Negative Urine Nitrate Negative Urine Bilirubin Negative Urine Urobilinogen 0.2-1.0 Ur Leukocyte Esterase Neg Urine RBC (Auto) 1 Urine Microscopic WBC 1 Ur Squamous Epith Cells < 1 Alcohol, Quantitative Blood Type Blood Type Confirm O POSITIVE Antibody Screen BBK History Checked - EKG Data EKG Interpreted by: Myself EKG shows normal: Sinus rhythm Assessment & Plan (1) Intractable cervical neuropathic pain Assessment and Plan: Patient requires cervical neck surgery. Cardiac risk factors discussed. EKG is normal. there is no cardiiovacular contraindcation to the planned surgey Status: Acute
[2018-02-21 05:47] LABS: HEMOGLOBIN 13.5 g/dL (12.0-18.0); MEAN CELL VOLUME 97.7 fl (80.0-94.0); MEAN CORPUSCULAR HEMOGLOBIN 32.8 pg (27.0-31.0); MEAN CORPUSCULAR HGB CONC 33.6 g/dL (33.0-37.0); RBC 4.11 Mil/uL (4.40-5.90); WHITE BLOOD COUNT 6.4 K/uL (4.8-10.8)
[2018-02-21 05:56] LABS: BLOOD UREA NITROGEN 25 mg/dl (9-20); CALCIUM 9.4 mg/dL (8.4-10.2); GFR NON-AFRICAN AMERICAN > 60
--- NOTE | 2018-02-21 07:12 | CP.PCM.PN ---
Objective - Vital Signs/Intake and Output Vital Signs (last 24 hours): Temp Pulse Resp BP Pulse Ox 97.6 F 75 19 138/85 96 02/21/18 01:46 02/21/18 01:46 02/21/18 01:46 02/21/18 01:46 02/21/18 01:46 - Medications Medications: Current Medications Acetaminophen (Tylenol 325mg Tab) 650 mg PO Q6 PRN PRN Reason: Pain, Mild (1-3) Diazepam (Valium) 10 mg PO BID [facility] Duloxetine HCl (Cymbalta) 60 mg PO DAILY [facility] Famotidine (Pepcid) 20 mg PO BID [facility] Last Admin: 02/20/18 20:00 Dose: 20 mg Hydrochlorothiazide (Microzide) 12.5 mg PO DAILY [facility] Lisinopril (Zestril) 20 mg PO DAILY [facility] Oxycodone/Acetaminophen (Percocet 5/325 Mg Tab) 1 tab PO Q4 PRN PRN Reason: Pain, moderate (4-7) Stop: 02/23/18 14:02 Oxycodone/Acetaminophen (Percocet 5/325 Mg Tab) 2 tab PO Q6 PRN PRN Reason: Pain, severe (8-10) Stop: 02/23/18 14:05 Last Admin: 02/20/18 22:41 Dose: 2 tab Prazosin HCl (Minipress) 2 mg PO HS [facility] Last Admin: 02/20/18 22:41 Dose: 2 mg - Labs Labs: 02/21/18 04:55 02/21/18 04:55 PT 11.7 Seconds (9.8-13.1) 02/20/18 10:15 INR 1.0 02/20/18 10:15 APTT 51.0 Seconds (25.6-37.1) H 02/20/18 10:15
[2018-02-21] MEDS ORDERED: Absorbable Gelatin Sponge Size 12-7 ONE (07:18)
[2018-02-21] MEDS ORDERED: Thrombin Topical 5,000 Int Units Spray Kit ONE (07:18)
[2018-02-21] MEDS ORDERED: Midazolam 2 MG/2 ML VIAL ONE (07:21)
[2018-02-21] MEDS ORDERED: Propofol 10 mg/ml Inj (20 ML) ONE (07:21)
[2018-02-21] MEDS ORDERED: Lidocaine 4% (Laryng-O-Jet) Kit MM ONE (07:22)
[2018-02-21] MEDS ORDERED: Rocuronium 10 mg/ml (5 ml) ONE ×2 (07:22→09:02)
[2018-02-21] MEDS ORDERED: Succinylcholine 200 mg/10 ml Inj IV ONE (07:22)
[2018-02-21] MEDS ORDERED: Bacitracin Ointment 30 GM TUBE ONE (07:25)
[2018-02-21] MEDS ORDERED: Lactated Ringer's 1,000 ML IV ONE ×2 (07:55→08:58)
--- NOTE | 2018-02-21 08:03 | CP.PCM.CON ---
History of Present Illness - History of Present Illness History of Present Illness: Neurosurgical consult: Dr. Gray Patient is a 62 y/o male c/o severe neck pain. 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 He has had mutiple falls in the past due to R sided weakness of which he uses a can to ambulate. Most recent fall occurred two months ago after tripping over street curb. Fall exacerbated neck pain inhibiting most head/neck movements. Pain is daily, sharp and resistant to conservative means with oral meds and exercises. He admits to right sided weakness, as well as frequent right sided radiating pain/numbness/tingling. He has had previous ACDF at levels C4-C7 in 2013. He has also had multiple lumbar laminectomies x 3 in the past. He currently denies CP/SOB/N/V/D/fever/dysuria/melena. Review of Systems - Review of Systems All systems: reviewed and no additional remarkable complaints except Review of Systems: as per HPI Past Patient History - Infectious Disease Hx of Infectious Diseases: None - Past Medical History & Family History Past Medical History?: Yes - Past Social History Smoking Status: Former Smoker Alcohol: Occasional Drugs: Denies - CARDIAC Hx Cardiac Disorders: Yes Hx Hypertension: Yes - PULMONARY Hx Respiratory Disorders: No - NEUROLOGICAL Hx Neurological Disorder: Yes - HEENT Hx HEENT Problems: No - RENAL Hx Chronic Kidney Disease: No - ENDOCRINE/METABOLIC Hx Endocrine Disorders: No - HEMATOLOGICAL/ONCOLOGICAL Hx Blood Disorders: Yes Hx Anemia: Yes Hx Blood Transfusions: Yes Hx Hepatitis C: Yes - INTEGUMENTARY Hx Dermatological Problems: No - MUSCULOSKELETAL/RHEUMATOLOGICAL Hx Arthritis: Yes (general,hands) Hx Back Pain: Yes Hx Falls: Yes Hx Fractures: Yes Hx Herniated Disk: Yes Hx Unsteady Gait: Yes - GASTROINTESTINAL Hx Gastrointestinal Disorders: No - GENITOURINARY/GYNECOLOGICAL Hx Genitourinary Disorders: No - PSYCHIATRIC Hx Psychophysiologic Disorder: Yes Hx Depression: Yes Hx Post Traumatic Stress Disorder: Yes Hx Substance Use: No - SURGICAL HISTORY Hx Surgeries: Yes Hx Appendectomy: Yes Hx Cardiac Catheterization: Yes Hx Cholecystectomy: Yes Hx Orthopedic Surgery: Yes (Left shoulder arthroscopy, right knee arthroscopy, L hand MCP ORIF) Other/Comment: hiatal hernia repair, b/l inguinal hernia repair - ANESTHESIA Hx Anesthesia: Yes Hx Anesthesia Reactions: No Hx Malignant Hyperthermia: No Meds Allergies/Adverse Reactions: Allergies Allergy/AdvReac Type Severity Reaction Status Date / Time No Known Allergies Allergy Verified 02/10/18 14:26 - Medications Medications: Current Medications Acetaminophen (Tylenol 325mg Tab) 650 mg PO Q6 PRN PRN Reason: Pain, Mild (1-3) Diazepam (Valium) 10 mg PO BID [facility] Duloxetine HCl (Cymbalta) 60 mg PO DAILY [facility] Famotidine (Pepcid) 20 mg PO BID [facility] Last Admin: 02/20/18 20:00 Dose: 20 mg Hydrochlorothiazide (Microzide) 12.5 mg PO DAILY [facility] Lisinopril (Zestril) 20 mg PO DAILY [facility] Oxycodone/Acetaminophen (Percocet 5/325 Mg Tab) 1 tab PO Q4 PRN PRN Reason: Pain, moderate (4-7) Stop: 02/23/18 14:02 Oxycodone/Acetaminophen (Percocet 5/325 Mg Tab) 2 tab PO Q6 PRN PRN Reason: Pain, severe (8-10) Stop: 02/23/18 14:05 Last Admin: 02/20/18 22:41 Dose: 2 tab Prazosin HCl (Minipress) 2 mg PO HS [facility] Last Admin: 02/20/18 22:41 Dose: 2 mg Physical Exam - Constitutional Appears: Well, No Acute Distress - Head Exam Head Exam: ATRAUMATIC, NORMOCEPHALIC - Eye Exam Eye Exam: EOMI, Normal appearance, PERRL - ENT Exam ENT Exam: Mucous Membranes Moist - Neck Exam Additional comments: midline tenderness, b/l paraspinal tenderness old ACDF scar well healed sensation diminished to R MN/UN/RN R sided weakness 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 absent: Tenderness - Extremities Exam Additional comments: R lower ext weakness 4/5 - Neurological Exam Neurological exam: Alert, CN II-XII Intact, Oriented x3 - Psychiatric Exam Psychiatric exam: Normal Affect, Normal Mood - Skin Skin Exam: Normal Color, Warm Results - Vital Signs Recent Vital Signs: Last Vital Signs Temp 98.2 F 02/21/18 07:42 Pulse 81 02/21/18 07:42 Resp 20 12/12/18 07:42 BP 109/74 02/21/18 07:42 Pulse Ox 100 02/21/18 07:42 - Labs Result Diagrams: 02/21/18 04:55 02/21/18 04:55 Labs: Laboratory Results - last 24 hr 02/20/18 02/20/18 02/20/18 10:15 10:15 10:15 WBC 5.3 RBC 4.29 L Hgb 14.1 Hct 42.8 MCV 99.6 H D MCH 32.8 H MCHC 32.9 L RDW 14.7 H Plt Count 193 MPV 10.2 Neut % (Auto) 58.5 Lymph % (Auto) 25.3 [place] % (Auto) 12.7 H Eos % (Auto) 2.9 Baso % (Auto) 0.6 Neut # (Auto) 3.1 Lymph # (Auto) 1.4 [place] # (Auto) 0.7 Eos # (Auto) 0.2 Baso # (Auto) 0.0 PT INR APTT Sodium 136 Potassium 4.1 Chloride 99 Carbon Dioxide 26 Anion Gap 15 BUN 26 H Creatinine 0.9 Est GFR ( Amer) > 60 Est GFR (Non-Af Amer) > 60 Random Glucose 121 H Calcium 9.8 Total Bilirubin 0.5 AST 58 ALT 69 Alkaline Phosphatase 168 H Total Protein 9.3 H Albumin 4.8 Globulin 4.5 H Albumin/Globulin Ratio 1.1 Urine Color Urine Clarity Urine pH Ur Specific [place] Urine Protein Urine Glucose (UA) Urine Ketones Urine Blood Urine Nitrate Urine Bilirubin Urine Urobilinogen Ur Leukocyte Esterase Urine RBC (Auto) Urine Microscopic WBC Ur Squamous Epith Cells Alcohol, Quantitative < 10 Blood Type O POSITIVE Blood Type Confirm Antibody Screen Negative BBK History Checked No verified bt 02/20/18 02/20/18 02/20/18 10:15 10:45 11:50 WBC RBC Hgb Hct MCV MCH MCHC RDW Plt Count MPV Neut % (Auto) Lymph % (Auto) [place] % (Auto) Eos % (Auto) Baso % (Auto) Neut # (Auto) Lymph # (Auto) [place] # (Auto) Eos # (Auto) Baso # (Auto) PT 11.7 INR 1.0 APTT 51.0 H Sodium Potassium Chloride Carbon Dioxide Anion Gap BUN Creatinine Est GFR ( Amer) Est GFR (Non-Af Amer) Random Glucose Calcium Total Bilirubin AST ALT Alkaline Phosphatase Total Protein Albumin Globulin Albumin/Globulin Ratio Urine Color Yellow Urine Clarity Clear Urine pH 6.0 Ur Specific [place] 1.013 Urine Protein Negative Urine Glucose (UA) Neg Urine Ketones Negative Urine Blood Negative Urine Nitrate Negative Urine Bilirubin Negative Urine Urobilinogen 0.2-1.0 Ur Leukocyte Esterase Neg Urine RBC (Auto) 1 Urine Microscopic WBC 1 Ur Squamous Epith Cells < 1 Alcohol, Quantitative Blood Type Blood Type Confirm O POSITIVE Antibody Screen BBK History Checked 02/21/18 02/21/18 04:55 04:55 WBC 6.4 RBC 4.11 L Hgb 13.5 Hct 40.1 MCV 97.7 H MCH 32.8 H MCHC 33.6 RDW 15.0 H Plt Count 180 MPV Neut % (Auto) Lymph % (Auto) [place] % (Auto) Eos % (Auto) Baso % (Auto) Neut # (Auto) Lymph # (Auto) [place] # (Auto) Eos # (Auto) Baso # (Auto) PT INR APTT Sodium 136 Potassium 4.0 Chloride 98 Carbon Dioxide 26 Anion Gap 16 BUN 25 H Creatinine 1.0 Est GFR ( Amer) > 60 Est GFR (Non-Af Amer) > 60 Random Glucose 110 Calcium 9.4 Total Bilirubin AST ALT Alkaline Phosphatase Total Protein Albumin Globulin Albumin/Globulin Ratio Urine Color Urine Clarity Urine pH Ur Specific [place] Urine Protein Urine Glucose (UA) Urine Ketones Urine Blood Urine Nitrate Urine Bilirubin Urine Urobilinogen Ur Leukocyte Esterase Urine RBC (Auto) Urine Microscopic WBC Ur Squamous Epith Cells Alcohol, Quantitative Blood Type Blood Type Confirm Antibody Screen BBK History Checked Assessment & Plan (1) Cervical spondylosis Assessment and Plan: Dr. Gray proposes re-exploration of anterior cervical discectomy and fusion, ACDF C6-7, possible other levels Risks/benefits/alternatives d/w patient stefani understands and agrees to proceed with above procedure. NPO above d/w Dr. Gray in agreement Status: Acute
[2018-02-21] MEDS ORDERED: ePHEDrine 50 mg/ml Inj ONE ×2 (08:16→08:26)
[2018-02-21] MEDS ORDERED: Phenylephrine 10 mg/ml Inj ONE (08:17)
[2018-02-21] MEDS ORDERED: Lactated Ringer's 500 ML IV ONE (08:30)
[2018-02-21 08:31] VITALS: BMI 25.0
[2018-02-21] MEDS ORDERED: Calcium Chloride 1000 mg/10 ml Syringe ONE (08:33)
[2018-02-21] MEDS ORDERED: HEMOSTATIC MATRIX 10 ML DIS.NEEDLE TOP ONE ×2 (08:40→08:57)
[2018-02-21] MEDS ORDERED: Absorbable Gelatin Sponge Size 12-7 TP ONE (08:40)
[2018-02-21] MEDS ORDERED: Thrombin Topical 5,000 Int Units Spray Kit TOP ONE (08:40)
[2018-02-21] MEDS ORDERED: Dexamethasone 4 mg/1 ml ONE (08:41)
[2018-02-21] MEDS ORDERED: Neostigmine 1:1000 (1 mg/ml) Inj ONE (08:48)
[2018-02-21] MEDS ORDERED: Esmolol 100 mg/10ml Inj IV ONE (09:17)
[2018-02-21] MEDS: HYDROmorphone 0.5 mg/0.5 ml ISec IVP PRN ×3 (09:55→10:40)
[2018-02-21] MEDS ORDERED: Naloxone 0.4 mg/ml Inj (Adult) ONE (10:22)
--- NOTE | 2018-02-21 10:50 | PCM.SURG1 ---
Surgeon's Initial Post Op Note - Surgeon's Notes Surgeon: Peter Gray MD Day Care Director: Juan Jose Jones PA-C Type of Anesthesia: General Endo Anesthesia Administered By: Dr. Yoo Pre-Operative Diagnosis: Cervical spondylosis Operative Findings: C6-C7 cervical spondylosis Post-Operative Diagnosis: as above Operation Performed: C6-C7 anterior cervical discectomy and fusion Specimen/Specimens Removed: none Estimated Blood Loss: EBL {In ML}: 10 Blood Products Given: N/A Drains Used: Savage Ramos Post-Op Condition: Good Date of Surgery/Procedure: 02/21/18 Time of Surgery/Procedure: 08:14
[2018-02-21] MEDS ORDERED: Oxycodone/Acetaminophen 5/325 mg Tab PO PRN (11:16)
--- NOTE | 2018-02-21 11:40 | RAD ---
Date of service: 02/21/2018 PROCEDURE: Intraoperative Fluoroscopy. HISTORY: ACDF FINDINGS: Fluoroscopic assistance was provided for ACDF. Please refer to the operative report from TRUONG Mcgraw DR, MD. Total fluoroscopic time (continuous mode) utilized during the procedure 12.6 seconds. Total exam DLP: 3.57 (mGy).
[2018-02-21] MEDS: Lactated Ringer's 1,000 ML IV SCH ×2 (12:10→22:00)
--- NOTE | 2018-02-21 13:20 | CP.PCM.PN ---
Subjective - Date & Time of Evaluation Date of Evaluation: 02/21/18 Time of Evaluation: 08:00 - Subjective Subjective: Pt in OR in the morning- Cervical Discectemy and fusion c6-C7. Re-assessed post operatively in the PACU. Discussed with Juan Jose (neurosurgeon HIRAL)- Dexadron taper recommended, will f/u STEPHANIE drain, if <30cc then stable for discharge tomorrow. Objective - Vital Signs/Intake and Output Vital Signs (last 24 hours): Temp Pulse Resp BP Pulse Ox 97.3 F L 98 H 20 100/63 94 L 02/21/18 12:19 02/21/18 12:19 02/21/18 12:19 02/21/18 12:19 02/21/18 12:19 Intake and Output: 02/21/18 02/21/18 06:59 18:59 Intake Total 1200 Output Total 25 Balance 1175 - Medications Medications: Current Medications Acetaminophen (Tylenol 325mg Tab) 650 mg PO Q6 PRN PRN Reason: Pain, Mild (1-3) Cyclobenzaprine HCl (Flexeril) 10 mg PO Q8 PRN PRN Reason: Muscle spasm Diazepam (Valium) 10 mg PO BID [facility] Last Admin: 02/21/18 09:09 Dose: Not Given Docusate Sodium (Colace) 100 mg PO BID [facility] Duloxetine HCl (Cymbalta) 60 mg PO DAILY [facility] Last Admin: 02/21/18 09:09 Dose: Not Given Famotidine (Pepcid) 20 mg PO BID [facility] Last Admin: 02/21/18 09:09 Dose: Not Given Hydrochlorothiazide (Microzide) 12.5 mg PO DAILY [facility] Last Admin: 02/21/18 09:09 Dose: Not Given Cefazolin Sodium 2 gm/ Sodium (Chloride) 100 mls @ 100 mls/hr IVPB Q8 [facility]; Protocol Stop: 02/23/18 17:01 Lactated Ringer's (Lactated Ringer's) 1,000 mls @ 100 mls/hr IV .Q10H [facility] Last Admin: 02/21/18 12:10 Dose: 200 mls Lisinopril (Zestril) 20 mg PO DAILY [facility] Last Admin: 02/21/18 09:09 Dose: Not Given Morphine Sulfate (Morphine) 2 mg IVP Q4 PRN PRN Reason: Pain, severe (8-10) Oxycodone/Acetaminophen (Percocet 5/325 Mg Tab) 1 tab PO Q4 PRN PRN Reason: Pain, Mild (1-3) Stop: 02/23/18 14:02 Oxycodone/Acetaminophen (Percocet 5/325 Mg Tab) 2 tab PO Q6 PRN PRN Reason: Pain, moderate (4-7) Stop: 02/23/18 14:05 Prazosin HCl (Minipress) 2 mg PO HS [facility] Last Admin: 02/20/18 22:41 Dose: 2 mg - Labs Labs: 02/21/18 04:55 02/21/18 04:55 PT 11.7 Seconds (9.8-13.1) 02/20/18 10:15 INR 1.0 02/20/18 10:15 APTT 51.0 Seconds (25.6-37.1) H 02/20/18 10:15 - Constitutional Appears: No Acute Distress - Head Exam Head Exam: NORMAL INSPECTION - Eye Exam Eye Exam: Normal appearance - ENT Exam ENT Exam: Mucous Membranes Moist - Respiratory Exam Respiratory Exam: Clear to Ausculation Bilateral - Cardiovascular Exam Cardiovascular Exam: REGULAR RHYTHM - GI/Abdominal Exam GI & Abdominal Exam: Soft, Normal Bowel Sounds. absent: Tenderness - Extremities Exam Extremities Exam: Pedal Edema - Neurological Exam Neurological Exam: Alert - Psychiatric Exam Psychiatric exam: Normal Affect. absent: Agitated - Skin Skin Exam: Normal Color Assessment and Plan - Assessment and Plan (Free Text) Assessment: Pt is a 62 y/o male with hx of traumatic fall 4 years ago resulting in multiple injuries including rotator cuff tear, cervical fracture, cervical and lumbar disc herniation admitted for Cervical Discetemy and spinal fusion at level of C5-C6. POD Day 0. -Operative report reviewed, no complications -Pain controlled -Will start Decadron taper as advised by Neurosurgeon -PT ordered -CIWA 0 -Monitor STEPHANIE drain output d/w Dr. Carter
[2018-02-21] MEDS: ceFAZolin 2 GM in Sodium Chloride 0.9% 100 ML IVPB SCH (17:15)
[2018-02-21] MEDS: Oxycodone/Acetaminophen 5/325 mg Tab PO PRN (22:34)
[2018-02-22] MEDS: ceFAZolin 2 GM in Sodium Chloride 0.9% 100 ML IVPB SCH ×2 (00:18→09:04)
--- NOTE | 2018-02-22 01:21 | OP ---
PROCEDURE DATE: 02/21/2018 PREOPERATIVE DIAGNOSIS: Cervical spondylosis with myelopathy. POSTOPERATIVE DIAGNOSIS: Cervical spondylosis with myelopathy. PROCEDURE: Partial vertebrectomy of C6 and C7 and diskectomy of C6-C7, interbody fusion of C6-C7 using a STALIF of spinal elements. SURGEON: Peter Gray MD INDUSTRI[employer]ERTY APPRAISER: Juan Jose Jones, physician nurses medical assistants phlebotomists, who helped me to perform the surgery, stayed throughout the case from the beginning to the end. DESCRIPTION OF PROCEDURE: The patient was brought to the operating room after general endotracheal anesthesia, placed in a supine position. Head was placed on a donut. Care was taken to protect all pressure points. Right side of the neck was thoroughly prepped in same sterile manner after marking the skin incision for cervical vertebrectomy. After prepping and draping the area, a horizontal skin incision in the neck region has been made. Bleeding skin has been controlled with bipolar industrial health engineer. Using Bovie industrial health engineer, platysma has been cut. Dissection has been carried trachea and esophagus immediately. Sternomastoid carried out laterally. Prevertebral fascia has been cauterized and cut. Identification of the levels had been done at C6-C7. The previously placed plate also has been exposed in this area. PARTIAL VERTEBRECTOMY OF C6 AND C7, DISKECTOMY OF C6-C7: By using a high-speed drill, the vertebral bodies of C6-C7 have been drilled. Intermittently, diskectomy has been performed with pituitary rongeurs and curettes. There was a large osteophyte noted that was drilled. Posterior longitudinal ligament has been opened. Dura has been decompressed from side to side after removing half of the vertebral body including cortex in place. INTERBODY FUSION OF C6-C7 USING STALIF: STALIF has been brought in, filled with demineralized bone. It has been placed in the space created with partial vertebrectomies of C6-C7. By using 12-mm screw, it has been secured to the vertebral bodies under fluoroscopic guided control. Position has been confirmed to be good. After that, hemostasis was best achieved. Savage drain was placed in the wound and brought through a separate stab neck incision. Platysma was closed by 3-0 Vicryl. Skin has been closed with intradermal 3-0 Vicryl stitches. The patient tolerated the procedure. After procedure, mobilized to recovery room in stabilized condition. Peter Gray MD [facility] # [id number]
[2018-02-22 06:25] LABS: MEAN CELL VOLUME 98.5 fl (80.0-94.0); MEAN CORPUSCULAR HEMOGLOBIN 32.7 pg (27.0-31.0); MEAN CORPUSCULAR HGB CONC 33.2 g/dL (33.0-37.0); RBC 3.36 Mil/uL (4.40-5.90); RED CELL DISTRIBUTION WIDTH 14.4 % (11.5-14.5); WHITE BLOOD COUNT 5.9 K/uL (4.8-10.8)
[2018-02-22 06:40] LABS: BLOOD UREA NITROGEN 20 mg/dl (9-20); CALCIUM 9.1 mg/dL (8.4-10.2); GFR NON-AFRICAN AMERICAN > 60
[2018-02-22] MEDS ORDERED: Dexamethasone 10 MG in Sodium Chloride 0.9% 50 ML IVPB SCH (09:00)
[2018-02-22] MEDS: Lactated Ringer's 1,000 ML IV SCH ×2 (09:14→16:34)
--- NOTE | 2018-02-22 09:35 | CP.PCM.PN ---
Subjective - Date & Time of Evaluation Date of Evaluation: 02/22/18 Time of Evaluation: 08:00 - Subjective Subjective: Patient seen and examined at bedside comfortable. Pain is well controlled. Notes that RUE radiating pain and weakness has improved postop. No acute events overnight. Denies CP/SOB/fever/dysphagia. Objective - Vital Signs/Intake and Output Vital Signs (last 24 hours): Temp Pulse Resp BP Pulse Ox 97.9 F 86 18 109/69 95 02/22/18 08:27 02/22/18 09:06 02/22/18 08:27 02/22/18 09:06 02/22/18 08:27 - Medications Medications: Current Medications Acetaminophen (Tylenol 325mg Tab) 650 mg PO Q6 PRN PRN Reason: Pain, Mild (1-3) Cyclobenzaprine HCl (Flexeril) 10 mg PO Q8 PRN PRN Reason: Muscle spasm Last Admin: 02/22/18 09:05 Dose: 10 mg Dexamethasone (Decadron Inj) 6 mg IV DAILY [facility] Last Admin: 02/22/18 09:10 Dose: 6 mg Diazepam (Valium) 10 mg PO BID [facility] Last Admin: 02/22/18 09:10 Dose: 10 mg Docusate Sodium (Colace) 100 mg PO BID [facility] Last Admin: 02/22/18 09:04 Dose: 100 mg Duloxetine HCl (Cymbalta) 60 mg PO DAILY [facility] Last Admin: 02/22/18 09:04 Dose: 60 mg Famotidine (Pepcid) 20 mg PO BID [facility] Last Admin: 02/22/18 09:05 Dose: 20 mg Hydrochlorothiazide (Microzide) 12.5 mg PO DAILY [facility] Last Admin: 02/22/18 09:06 Dose: 12.5 mg Cefazolin Sodium 2 gm/ Sodium (Chloride) 100 mls @ 100 mls/hr IVPB Q8 [facility]; Protocol Stop: 02/23/18 17:01 Last Admin: 02/22/18 09:04 Dose: 100 mls/hr Lactated Ringer's (Lactated Ringer's) 1,000 mls @ 100 mls/hr IV .Q10H [facility] Last Admin: 02/22/18 09:14 Dose: 100 mls/hr Lisinopril (Zestril) 20 mg PO DAILY [facility] Last Admin: 02/22/18 09:06 Dose: 20 mg Morphine Sulfate (Morphine) 2 mg IVP Q4 PRN PRN Reason: Pain, severe (8-10) Last Admin: 02/22/18 04:09 Dose: 2 mg Oxycodone/Acetaminophen (Percocet 5/325 Mg Tab) 1 tab PO Q4 PRN PRN Reason: Pain, Mild (1-3) Stop: 02/23/18 14:02 Oxycodone/Acetaminophen (Percocet 5/325 Mg Tab) 2 tab PO Q6 PRN PRN Reason: Pain, moderate (4-7) Stop: 02/23/18 14:05 Last Admin: 02/21/18 22:34 Dose: 2 tab Prazosin HCl (Minipress) 2 mg PO HS [facility] Last Admin: 02/21/18 22:28 Dose: 2 mg - Labs Labs: 02/22/18 04:05 02/22/18 04:05 PT 11.7 Seconds (9.8-13.1) 02/20/18 10:15 INR 1.0 02/20/18 10:15 APTT 51.0 Seconds (25.6-37.1) H 02/20/18 10:15 - Neck Exam Additional comments: Dressings CDI STEPHANIE drain with mild bloody drainage (55 cc over last 24 hrs) sensation diminished but improved to R MN/UN/RN R sided 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 Gray in agreement Status: Acute
--- NOTE | 2018-02-22 13:31 | CP.PCM.PN ---
Subjective - Date & Time of Evaluation Date of Evaluation: 02/22/18 Time of Evaluation: 08:00 - Subjective Subjective: Pt seen and examined this morning with Dr. Carter. Reports pain is controlled. Plan as per neurosurgery. Objective - Vital Signs/Intake and Output Vital Signs (last 24 hours): Temp Pulse Resp BP Pulse Ox 97.9 F 86 18 109/69 95 02/22/18 08:27 02/22/18 09:06 02/22/18 08:27 02/22/18 09:06 02/22/18 08:27 - Medications Medications: Current Medications Acetaminophen (Tylenol 325mg Tab) 650 mg PO Q6 PRN PRN Reason: Pain, Mild (1-3) Cyclobenzaprine HCl (Flexeril) 10 mg PO Q8 PRN PRN Reason: Muscle spasm Last Admin: 02/22/18 09:05 Dose: 10 mg Diazepam (Valium) 10 mg PO BID [facility] Last Admin: 02/22/18 09:10 Dose: 10 mg Docusate Sodium (Colace) 100 mg PO BID [facility] Last Admin: 02/22/18 09:04 Dose: 100 mg Duloxetine HCl (Cymbalta) 60 mg PO DAILY [facility] Last Admin: 02/22/18 09:04 Dose: 60 mg Famotidine (Pepcid) 20 mg PO BID [facility] Last Admin: 02/22/18 09:05 Dose: 20 mg Hydrochlorothiazide (Microzide) 12.5 mg PO DAILY [facility] Last Admin: 02/22/18 09:06 Dose: 12.5 mg Lactated Ringer's (Lactated Ringer's) 1,000 mls @ 100 mls/hr IV .Q10H [facility] Last Admin: 02/22/18 09:14 Dose: 100 mls/hr Cefazolin Sodium/Dextrose (Ancef Iv 2 Gm Duplex) 2 gm in 50 mls @ 50 mls/hr IVPB Q8 [facility]; Protocol Stop: 02/23/18 17:01 Lisinopril (Zestril) 20 mg PO DAILY [facility] Last Admin: 02/22/18 09:06 Dose: 20 mg Morphine Sulfate (Morphine) 2 mg IVP Q4 PRN PRN Reason: Pain, severe (8-10) Last Admin: 02/22/18 04:09 Dose: 2 mg Oxycodone/Acetaminophen (Percocet 5/325 Mg Tab) 1 tab PO Q4 PRN PRN Reason: Pain, Mild (1-3) Stop: 02/23/18 14:02 Oxycodone/Acetaminophen (Percocet 5/325 Mg Tab) 2 tab PO Q6 PRN PRN Reason: Pain, moderate (4-7) Stop: 02/23/18 14:05 Last Admin: 02/21/18 22:34 Dose: 2 tab Prazosin HCl (Minipress) 2 mg PO HS [facility] Last Admin: 02/21/18 22:28 Dose: 2 mg - Labs Labs: 02/22/18 04:05 02/22/18 04:05 PT 11.7 Seconds (9.8-13.1) 02/20/18 10:15 INR 1.0 02/20/18 10:15 APTT 51.0 Seconds (25.6-37.1) H 02/20/18 10:15 - Constitutional Appears: No Acute Distress - Head Exam Head Exam: NORMAL INSPECTION - Eye Exam Eye Exam: Normal appearance - ENT Exam ENT Exam: Mucous Membranes Moist - Neck Exam Additional comments: STEPHANIE drain w/ 50cc of serosangionous fluid - Respiratory Exam Respiratory Exam: Clear to Ausculation Bilateral. absent: Rales, Wheezes - Cardiovascular Exam Cardiovascular Exam: REGULAR RHYTHM, +S1, +S2. absent: Murmur - Extremities Exam Extremities Exam: Normal Capillary Refill. absent: Pedal Edema - Neurological Exam Neurological Exam: Awake, Oriented x3 - Psychiatric Exam Psychiatric exam: Normal Affect - Skin Skin Exam: Normal Color Assessment and Plan - Assessment and Plan (Free Text) Assessment: Pt is a 62 y/o male with hx of traumatic fall 4 years ago resulting in multiple injuries including rotator cuff tear, cervical fracture, cervical and lumbar disc herniation admitted for Cervical Discetemy and spinal fusion at level of C5-C6. POD Day 0. -Discharge when cleared by neurosurgery -Pain controlled -Decadron taper as advised by Neurosurgeon. !0mg today, 6mg tomorrow, Decadron Pack on discharge -PT ordered -Monitor STEPHANIE drain output, 50 cc last night d/w Dr. Carter
[2018-02-22] MEDS: ceFAZolin IV 2 gm in Dextrose 2 GM/50 ML BAG IVPB SCH (16:32)
[2018-02-23] MEDS: ceFAZolin IV 2 gm in Dextrose 2 GM/50 ML BAG IVPB SCH ×2 (00:26→09:26)
[2018-02-23] MEDS: Lactated Ringer's 1,000 ML IV SCH (03:00)
[2018-02-23 05:42] LABS: HEMOGLOBIN 11.9 g/dL (12.0-18.0); MEAN CELL VOLUME 97.9 fl (80.0-94.0); MEAN CORPUSCULAR HEMOGLOBIN 32.4 pg (27.0-31.0); RBC 3.66 Mil/uL (4.40-5.90); RED CELL DISTRIBUTION WIDTH 14.4 % (11.5-14.5); WHITE BLOOD COUNT 6.5 K/uL (4.8-10.8)
[2018-02-23 05:54] LABS: BLOOD UREA NITROGEN 23 mg/dl (9-20); CALCIUM 9.2 mg/dL (8.4-10.2); GFR NON-AFRICAN AMERICAN > 60
[2018-02-23] MEDS: Oxycodone/Acetaminophen 5/325 mg Tab PO PRN (09:20)
[2018-02-23 09:23] VITALS: BP 151/88; PULSE 84
[2018-02-23 11:04] VITALS: RESP 20; TEMP 97.9
--- NOTE | 2018-02-23 11:55 | CP.PCM.PN ---
Subjective - Date & Time of Evaluation Date of Evaluation: 02/23/18 Time of Evaluation: 13:35 - Subjective Subjective: Patient states he is doing well. He says the symptoms in his RUE are much improved post op. Denies CP/SOB/dizziness, tolerating PO. Objective - Vital Signs/Intake and Output Vital Signs (last 24 hours): Temp Pulse Resp BP Pulse Ox 97.9 F 84 20 151/88 H 95 02/23/18 09:00 02/23/18 09:22 02/23/18 09:00 02/23/18 09:22 02/23/18 09:00 Intake and Output: 02/23/18 02/23/18 06:59 18:59 Intake Total 2320 Output Total 2009 Balance 310 - Medications Medications: Current Medications Acetaminophen (Tylenol 325mg Tab) 650 mg PO Q6 PRN PRN Reason: Pain, Mild (1-3) Cyclobenzaprine HCl (Flexeril) 10 mg PO Q8 PRN PRN Reason: Muscle spasm Last Admin: 02/22/18 16:33 Dose: 10 mg Diazepam (Valium) 10 mg PO BID [facility] Last Admin: 02/23/18 09:24 Dose: 10 mg Docusate Sodium (Colace) 100 mg PO BID [facility] Last Admin: 02/23/18 09:21 Dose: 100 mg Duloxetine HCl (Cymbalta) 60 mg PO DAILY [facility] Last Admin: 02/23/18 09:26 Dose: 60 mg Famotidine (Pepcid) 20 mg PO BID [facility] Last Admin: 02/23/18 09:21 Dose: 20 mg Hydrochlorothiazide (Microzide) 12.5 mg PO DAILY [facility] Last Admin: 02/23/18 09:22 Dose: 12.5 mg Lactated Ringer's (Lactated Ringer's) 1,000 mls @ 100 mls/hr IV .Q10H [facility] Last Admin: 02/23/18 03:00 Dose: Not Given Cefazolin Sodium/Dextrose (Ancef Iv 2 Gm Duplex) 2 gm in 50 mls @ 50 mls/hr IVPB Q8 [facility]; Protocol Stop: 02/23/18 17:01 Last Admin: 02/23/18 09:26 Dose: 50 mls/hr Lisinopril (Zestril) 20 mg PO DAILY [facility] Last Admin: 02/23/18 09:22 Dose: 20 mg Oxycodone/Acetaminophen (Percocet 5/325 Mg Tab) 1 tab PO Q4 PRN PRN Reason: Pain, Mild (1-3) Stop: 02/23/18 14:02 Oxycodone/Acetaminophen (Percocet 5/325 Mg Tab) 2 tab PO Q6 PRN PRN Reason: Pain, moderate (4-7) Stop: 02/23/18 14:05 Last Admin: 02/23/18 09:20 Dose: 2 tab Prazosin HCl (Minipress) 2 mg PO HS [facility] Last Admin: 02/22/18 21:58 Dose: 2 mg - Labs Labs: 02/23/18 05:05 02/23/18 05:05 PT 11.7 Seconds (9.8-13.1) 02/20/18 10:15 INR 1.0 02/20/18 10:15 APTT 51.0 Seconds (25.6-37.1) H 02/20/18 10:15 - Neck Exam Additional comments: STEPHANIE 10cc-5cc, pulled dressing change incision intact, mild swelling expected, no erythema complains of tingling to RUE, but noted sensation C5-T2 Assessment and Plan (1) Cervical spondylosis Assessment & Plan: STEPHANIE pulled stable for d/c from neuro perspective, pt for TCU placement d/w Dr. mcallister, agrees wtih above, f/u in 2 weeks call for appt keep incision site clean and dry soft collar PT/OT decadron taper per medical team Status: Acute
[2018-02-25 14:53] VITALS: O2SAT 99
== END 2018-02-23 13:54 | DRG 473 ==
LOC: H.ER 09:43 → H.ERHOLD 10:14 → H.TEL 02-21 00:38
PROVIDERS: ADMIT Family Medicine; ATTEND Family Medicine
PROC: 0RB30ZZ Excision of Cervical Vertebral Disc, Open Approach (ICD-10-PCS; 2018-02-21)
PROC: 0RG20K0 Fusion of 2 or more Cervical Vertebral Joints with Nonautologous Tissue Substitute, Anterior Approach, Anterior Column, Open Approach (ICD-10-PCS; principal; 2018-02-21 07:45)
DX: M47.12 Other spondylosis with myelopathy, cervical region (principal); G89.29 Other chronic pain; F10.10 Alcohol abuse, uncomplicated; I25.10 Atherosclerotic heart disease of native coronary artery without angina pectoris; I10 Essential (primary) hypertension; F43.10 Post-traumatic stress disorder, unspecified; F41.9 Anxiety disorder, unspecified; M19.042 Primary osteoarthritis, left hand; M19.041 Primary osteoarthritis, right hand; Z91.81 History of falling; Z87.81 Personal history of (healed) traumatic fracture; Z87.891 Personal history of nicotine dependence; Z90.49 Acquired absence of other specified parts of digestive tract

== ENCOUNTER 2018-02-23 12:52 | Inpatient (IN) | payer OTHER ==
[2018-02-23 14:19] VITALS: BMI 25.8
[2018-02-23] MEDS ORDERED: Oxycodone/Acetaminophen 5/325 mg Tab PO PRN ×2 (14:56→18:40)
[2018-02-23 15:08] VITALS: RESP 20
[2018-02-24] MEDS: Oxycodone/Acetaminophen 5/325 mg Tab PO PRN ×2 (09:48→14:30)
--- NOTE | 2018-02-24 17:19 | CP.PCM.CON ---
History of Present Illness - History of Present Illness History of Present Illness: Dr Newton PMR consultation on Jose G Ford, born 1955 who has been admitted to [facility] TCU for acute inpatient rehabilitation following a cervical C6/7 cervical discectomy and fusion. Post op stable and much improved right UE radic ular symptoms that he related felt like an electrical cord into his arm. Patient with multiple admissions to this ER alone with public intoxication in spite of being on narcotic medications. He had to find a new pain specialist. I had initially offered to work with him but upon review of the notes this is not something that I would feel appropriate given his abuses and clear violation of a standard pain contract. He will be on Percocet while here No constipation Review of Systems - Constitutional Constitutional: absent: Chills - EENT Eyes: absent: Change in Vision Ears: absent: Ear Discharge, Ear Pain Nose/Mouth/Throat: absent: Nasal Congestion, Nasal Discharge - Cardiovascular Cardiovascular: absent: Chest Pain, Dyspnea on Exertion - Respiratory Respiratory: absent: Dyspnea, Hemoptysis - Gastrointestinal Gastrointestinal: absent: Belching, Constipation - Musculoskeletal Musculoskeletal: absent: Deformity, Radiating Pain into Limb (minimal to right UE) - Integumentary Integumentary: absent: Bleeding Lesions - Neurological Neurological: Numbness (right 3-5th digits since the first cervical surgery). absent: Dizziness - Psychiatric Psychiatric: absent: Anxiety Past Patient History - Infectious Disease Hx of Infectious Diseases: None - Past Medical History & Family History Past Medical History?: Yes - Past Social History Smoking Status: Former Smoker - CARDIAC Hx Cardiac Disorders: Yes Hx Hypertension: Yes - PULMONARY Hx Respiratory Disorders: No - NEUROLOGICAL Hx Neurological Disorder: Yes - HEENT Hx HEENT Problems: No - RENAL Hx Chronic Kidney Disease: No - ENDOCRINE/METABOLIC Hx Endocrine Disorders: No - HEMATOLOGICAL/ONCOLOGICAL Hx Blood Disorders: Yes Hx Anemia: Yes Hx Blood Transfusions: Yes Hx Hepatitis C: Yes - INTEGUMENTARY Hx Dermatological Problems: No - MUSCULOSKELETAL/RHEUMATOLOGICAL Hx Arthritis: Yes (general,hands) Hx Back Pain: Yes Hx Falls: No Hx Fractures: Yes Hx Herniated Disk: Yes Hx Unsteady Gait: Yes - GASTROINTESTINAL Hx Gastrointestinal Disorders: No - GENITOURINARY/GYNECOLOGICAL Hx Genitourinary Disorders: No - PSYCHIATRIC Hx Psychophysiologic Disorder: Yes Hx Depression: Yes Hx Post Traumatic Stress Disorder: Yes Hx Substance Use: No - SURGICAL HISTORY Hx Surgeries: Yes Hx Appendectomy: Yes Hx Cardiac Catheterization: Yes Hx Cholecystectomy: Yes Hx Orthopedic Surgery: Yes (Left shoulder arthroscopy, right knee arthroscopy, L hand MCP ORIF) Other/Comment: hiatal hernia repair, b/l inguinal hernia repair - ANESTHESIA Hx Anesthesia: Yes Hx Anesthesia Reactions: No Hx Malignant Hyperthermia: No Meds Allergies/Adverse Reactions: Allergies Allergy/AdvReac Type Severity Reaction Status Date / Time No Known Allergies Allergy Verified 02/23/18 13:02 - Medications Medications: Current Medications Acetaminophen (Tylenol 325mg Tab) 650 mg PO Q4 PRN PRN Reason: Pain, Mild (1-3) Ascorbic Acid (Vitamin C 500 Mg Tab) 1,000 mg PO DAILY [facility] Last Admin: 02/24/18 09:41 Dose: 1,000 mg Cyclobenzaprine HCl (Flexeril) 10 mg PO Q8 PRN PRN Reason: Muscle spasm Diazepam (Valium) 10 mg PO BID [facility] Last Admin: 02/24/18 17:06 Dose: 10 mg Docusate Sodium (Colace) 100 mg PO BID [facility] Last Admin: 02/24/18 17:02 Dose: 100 mg Duloxetine HCl (Cymbalta) 60 mg PO DAILY [facility] Last Admin: 02/24/18 09:40 Dose: 60 mg Famotidine (Pepcid) 20 mg PO BID [facility] Last Admin: 02/24/18 17:05 Dose: 20 mg Hydrochlorothiazide (Microzide) 12.5 mg PO DAILY [facility] Last Admin: 02/24/18 09:41 Dose: 12.5 mg Lisinopril (Zestril) 20 mg PO DAILY [facility] Last Admin: 02/24/18 09:42 Dose: 20 mg Oxycodone/Acetaminophen (Percocet 5/325 Mg Tab) 1 tab PO Q4 PRN PRN Reason: Pain, moderate (4-7) Stop: 02/26/18 14:57 Last Admin: 02/24/18 14:30 Dose: 1 tab Prazosin HCl (Minipress) 2 mg PO [facility] Last Admin: 02/23/18 21:29 Dose: 2 mg Physical Exam - Constitutional Appears: Non-toxic, No Acute Distress (cervical collar) - Head Exam Head Exam: ATRAUMATIC, NORMAL INSPECTION, NORMOCEPHALIC - Eye Exam Eye Exam: EOMI - ENT Exam ENT Exam: Mucous Membranes Moist - Respiratory Exam Respiratory Exam: NORMAL BREATHING PATTERN - Cardiovascular Exam Cardiovascular Exam: REGULAR RHYTHM - GI/Abdominal Exam GI & Abdominal Exam: Normal Bowel Sounds. absent: Distended, Firm - Extremities Exam Extremities exam: Negative for: calf tenderness - Neurological Exam Neurological exam: Alert, CN II-XII Intact, Oriented x3 - Psychiatric Exam Psychiatric exam: Normal Affect, Normal Mood - Skin Skin Exam: Warm Results - Vital Signs Recent Vital Signs: Last Vital Signs Temp 98.5 F 02/24/18 15:52 Pulse 69 02/24/18 15:52 Resp 20 02/24/18 15:52 BP 136/92 H 02/24/18 15:52 Pulse Ox 96 02/24/18 15:52 Assessment & Plan - Assessment and Plan (Free Text) Assessment: PT/OT to continue to help increase functional independence Pain: controlled Vascular: no evidence of DVT GI: No evidence of constipation or diarrhea Patient continues to be an excellent TCU rehabilitation candidate and will have continued focused PT, OT and recreational therapy to help facilitate a safe and appropriate d/c plan Has right 4th and left 3rd digit trigger fingers. I proposed doing an injection for which he was open to. continue current treatments
[2018-02-24] MEDS: Oxycodone/Acetaminophen 5/325 mg Tab PO SCH (22:00)
[2018-02-25] MEDS: Oxycodone/Acetaminophen 5/325 mg Tab PO SCH ×5 (04:22→21:22)
[2018-02-26] MEDS: Oxycodone/Acetaminophen 5/325 mg Tab PO SCH ×4 (04:05→21:20)
--- NOTE | 2018-02-26 10:23 | CP.PCM.PN ---
Subjective - Date & Time of Evaluation Date of Evaluation: 02/26/18 Time of Evaluation: 09:20 - Subjective Subjective: Patient seen and examined OOB ambulating with PT. Pain well controlled. Notes was shaving and noticed bleeding from drain site. No other complaints. Objective - Vital Signs/Intake and Output Vital Signs (last 24 hours): Temp Pulse Resp BP Pulse Ox 98.6 F 69 20 104/66 95 02/25/18 19:31 02/26/18 08:46 02/25/18 19:31 02/26/18 08:46 02/25/18 19:31 - Medications Medications: Current Medications Acetaminophen (Tylenol 325mg Tab) 650 mg PO Q4 PRN PRN Reason: Pain, Mild (1-3) Ascorbic Acid (Vitamin C 500 Mg Tab) 1,000 mg PO DAILY [facility] Last Admin: 02/26/18 08:47 Dose: 1,000 mg Cyclobenzaprine HCl (Flexeril) 10 mg PO Q8 PRN PRN Reason: Muscle spasm Diazepam (Valium) 10 mg PO BID [facility] Last Admin: 02/26/18 08:49 Dose: 10 mg Docusate Sodium (Colace) 100 mg PO BID [facility] Last Admin: 02/26/18 08:45 Dose: 100 mg Duloxetine HCl (Cymbalta) 60 mg PO DAILY [facility] Last Admin: 02/26/18 08:45 Dose: 60 mg Famotidine (Pepcid) 20 mg PO BID [facility] Last Admin: 02/26/18 08:45 Dose: 20 mg Hydrochlorothiazide (Microzide) 12.5 mg PO DAILY [facility] Last Admin: 02/26/18 08:46 Dose: 12.5 mg Lisinopril (Zestril) 20 mg PO DAILY [facility] Last Admin: 02/26/18 08:46 Dose: 20 mg Oxycodone/Acetaminophen (Percocet 5/325 Mg Tab) 1 tab PO Q4 PRN PRN Reason: Pain, moderate (4-7) Stop: 02/26/18 14:57 Last Admin: 02/24/18 14:30 Dose: 1 tab Oxycodone/Acetaminophen (Percocet 5/325 Mg Tab) 2 tab PO Q6 [facility] Stop: 02/27/18 22:01 Last Admin: 02/26/18 09:38 Dose: 2 tab Prazosin HCl (Minipress) 2 mg PO HS [facility] Last Admin: 02/25/18 21:22 Dose: 2 mg - Extremities Exam Additional comments: Dressings CDI, Incision CDI with dermabond, drain site clean healing well sensation diminished but improved to R MN/UN/RN R sided improved weakness edge baster strength/biceps/triceps/deltoid neg clonus Assessment and Plan (1) Status post cervical spinal fusion Assessment & Plan: POD# 5 s/p C6-7 ACDF doing well -wounds healing well -PT/OT WBAT -soft cervical collar for comfort -neurosurgically stable -above d/w Dr. Gray in agreement Status: Acute
--- NOTE | 2018-02-26 19:07 | CP.PCM.PN ---
Subjective - Date & Time of Evaluation Date of Evaluation: 02/26/18 Time of Evaluation: 19:06 - Subjective Subjective: Patient seen in the room in good spirits good strength pain is well controlled trying to cut down on the quantity of percocet and trying not to take the night time dosage continue current care Objective - Vital Signs/Intake and Output Vital Signs (last 24 hours): Temp Pulse Resp BP Pulse Ox 97.6 F 75 20 115/62 98 02/26/18 17:21 02/26/18 17:21 02/26/18 17:21 02/26/18 17:21 02/26/18 17:21 - Medications Medications: Current Medications Acetaminophen (Tylenol 325mg Tab) 650 mg PO Q4 PRN PRN Reason: Pain, Mild (1-3) Ascorbic Acid (Vitamin C 500 Mg Tab) 1,000 mg PO DAILY [facility] Last Admin: 02/26/18 08:47 Dose: 1,000 mg Cyclobenzaprine HCl (Flexeril) 10 mg PO Q8 PRN PRN Reason: Muscle spasm Diazepam (Valium) 10 mg PO BID [facility] Last Admin: 02/26/18 16:40 Dose: 10 mg Docusate Sodium (Colace) 100 mg PO BID [facility] Last Admin: 02/26/18 16:41 Dose: 100 mg Duloxetine HCl (Cymbalta) 60 mg PO DAILY [facility] Last Admin: 02/26/18 08:45 Dose: 60 mg Famotidine (Pepcid) 20 mg PO BID [facility] Last Admin: 02/26/18 16:40 Dose: 20 mg Hydrochlorothiazide (Microzide) 12.5 mg PO DAILY [facility] Last Admin: 02/26/18 08:46 Dose: 12.5 mg Lisinopril (Zestril) 20 mg PO DAILY [facility] Last Admin: 02/26/18 08:46 Dose: 20 mg Oxycodone/Acetaminophen (Percocet 5/325 Mg Tab) 2 tab PO Q6 [facility] Stop: 02/27/18 22:01 Last Admin: 02/26/18 16:40 Dose: 2 tab Prazosin HCl (Minipress) 2 mg PO HS [facility] Last Admin: 02/25/18 21:22 Dose: 2 mg
[2018-02-27] MEDS: Oxycodone/Acetaminophen 5/325 mg Tab PO SCH ×4 (03:22→21:13)
--- NOTE | 2018-02-27 07:12 | CP.PCM.HP ---
History of Present Illness - History of Present Illness History of Present Illness: This is a 62 y/o male admitted to TCU for further therapy after C6C7 discectomy and fusion. He had sustained multiple injuries after a traumatic fall including herniated discs and rotator cuff injuries, Has a hx of alcoholism and chronic pain medication use. Has a hx of CAD with 1 cardiac stent. Post op period was unremarkable and was started on phys therapy and suggested continuation at [facility] subacute rehab level. He claims to have significant improvement od f symptoms of cervical radiculopathy after his surgery Present on Admission - Present on Admission Any Indicators Present on Admission: No History of DVT/PE: No History of Uncontrolled Diabetes: No Urinary Catheter: No Decubitus Ulcer Present: No Past Patient History - Infectious Disease Hx of Infectious Diseases: None - Past Medical History & Family History Past Medical History?: Yes - Past Social History Smoking Status: Former Smoker - CARDIAC Hx Cardiac Disorders: Yes Hx Hypertension: Yes - PULMONARY Hx Respiratory Disorders: No - NEUROLOGICAL Hx Neurological Disorder: Yes - HEENT Hx HEENT Problems: No - RENAL Hx Chronic Kidney Disease: No - ENDOCRINE/METABOLIC Hx Endocrine Disorders: No - HEMATOLOGICAL/ONCOLOGICAL Hx Blood Disorders: Yes Hx Anemia: Yes Hx Blood Transfusions: Yes Hx Hepatitis C: Yes - INTEGUMENTARY Hx Dermatological Problems: No - MUSCULOSKELETAL/RHEUMATOLOGICAL Hx Arthritis: Yes (general,hands) Hx Back Pain: Yes Hx Falls: No Hx Fractures: Yes Hx Herniated Disk: Yes Hx Unsteady Gait: Yes - GASTROINTESTINAL Hx Gastrointestinal Disorders: No - GENITOURINARY/GYNECOLOGICAL Hx Genitourinary Disorders: No - PSYCHIATRIC Hx Psychophysiologic Disorder: Yes Hx Depression: Yes Hx Post Traumatic Stress Disorder: Yes Hx Substance Use: No - SURGICAL HISTORY Hx Surgeries: Yes Hx Appendectomy: Yes Hx Cardiac Catheterization: Yes Hx Cholecystectomy: Yes Hx Orthopedic Surgery: Yes (Left shoulder arthroscopy, right knee arthroscopy, L hand MCP ORIF) Other/Comment: hiatal hernia repair, b/l inguinal hernia repair - ANESTHESIA Hx Anesthesia: Yes Hx Anesthesia Reactions: No Hx Malignant Hyperthermia: No Meds Allergies/Adverse Reactions: Allergies Allergy/AdvReac Type Severity Reaction Status Date / Time No Known Allergies Allergy Verified 02/23/18 13:02 Physical Exam - Head Exam Head Exam: NORMAL INSPECTION - Eye Exam Eye Exam: Normal appearance - ENT Exam ENT Exam: Mucous Membranes Moist - Respiratory Exam Respiratory Exam: Clear to Auscultation Bilateral - Cardiovascular Exam Cardiovascular Exam: REGULAR RHYTHM - GI/Abdominal Exam GI & Abdominal Exam: Normal Bowel Sounds - Neurological Exam Neurological exam: CN II-XII Intact - Psychiatric Exam Psychiatric exam: Normal Mood Results - Vital Signs Recent Vital Signs: Last Vital Signs Temp 97.0 F L 02/26/18 21:47 Pulse 77 02/26/18 21:47 Resp 20 02/26/18 21:47 BP 112/75 02/26/18 21:47 Pulse Ox 98 02/26/18 21:47 Assessment & Plan (1) Status post cervical spinal fusion Status: Acute (2) Alcohol abuse Status: Acute (3) CAD (coronary artery disease) Status: Acute (4) Chronic neck pain Status: Acute - Assessment and Plan (Free Text) Plan: Start Phys therapy Pain medications consult with Dr Lamar webb all meds.
--- NOTE | 2018-02-27 07:17 | CP.PCM.PN ---
Subjective - Date & Time of Evaluation Date of Evaluation: 02/25/18 Time of Evaluation: 19:00 - Subjective Subjective: Patient feels a lot better Has slight pain on the op site Doing well with PT. Has no fever. Objective - Vital Signs/Intake and Output Vital Signs (last 24 hours): Temp Pulse Resp BP Pulse Ox 97.0 F L 77 20 112/75 98 02/26/18 21:47 02/26/18 21:47 02/26/18 21:47 02/26/18 21:47 02/26/18 21:47 - Medications Medications: Current Medications Acetaminophen (Tylenol 325mg Tab) 650 mg PO Q4 PRN PRN Reason: Pain, Mild (1-3) Ascorbic Acid (Vitamin C 500 Mg Tab) 1,000 mg PO DAILY [facility] Last Admin: 02/26/18 08:47 Dose: 1,000 mg Cyclobenzaprine HCl (Flexeril) 10 mg PO Q8 PRN PRN Reason: Muscle spasm Last Admin: 02/26/18 23:42 Dose: 10 mg Diazepam (Valium) 10 mg PO BID [facility] Last Admin: 02/26/18 16:40 Dose: 10 mg Docusate Sodium (Colace) 100 mg PO BID [facility] Last Admin: 02/26/18 16:41 Dose: 100 mg Duloxetine HCl (Cymbalta) 60 mg PO DAILY [facility] Last Admin: 02/26/18 08:45 Dose: 60 mg Famotidine (Pepcid) 20 mg PO BID [facility] Last Admin: 02/26/18 16:40 Dose: 20 mg Hydrochlorothiazide (Microzide) 12.5 mg PO DAILY [facility] Last Admin: 02/26/18 08:46 Dose: 12.5 mg Lisinopril (Zestril) 20 mg PO DAILY [facility] Last Admin: 02/26/18 08:46 Dose: 20 mg Oxycodone/Acetaminophen (Percocet 5/325 Mg Tab) 2 tab PO Q6 [facility] Stop: 02/27/18 22:01 Last Admin: 02/27/18 03:22 Dose: 2 tab Prazosin HCl (Minipress) 2 mg PO HS [facility] Last Admin: 02/26/18 21:21 Dose: 2 mg - Head Exam Head Exam: NORMAL INSPECTION - Eye Exam Eye Exam: Normal appearance - ENT Exam ENT Exam: Mucous Membranes Moist - Respiratory Exam Respiratory Exam: Clear to Ausculation Bilateral - Cardiovascular Exam Cardiovascular Exam: REGULAR RHYTHM - GI/Abdominal Exam GI & Abdominal Exam: Normal Bowel Sounds - Neurological Exam Neurological Exam: Awake, Oriented x3 - Psychiatric Exam Psychiatric exam: Normal Mood Assessment and Plan (1) Status post cervical spinal fusion Status: Acute (2) Alcohol abuse Status: Acute (3) CAD (coronary artery disease) Status: Acute (4) Chronic neck pain Status: Acute - Assessment and Plan (Free Text) Plan: Cont meds Cont tx Cont PT pain meds.
--- NOTE | 2018-02-27 07:18 | CP.PCM.PN ---
Subjective - Date & Time of Evaluation Date of Evaluation: 02/26/18 Time of Evaluation: 10:30 - Subjective Subjective: patient remains stable On Percocet for pain Doing well with phys therapy. Has no chest pain or SOB. Objective - Vital Signs/Intake and Output Vital Signs (last 24 hours): Temp Pulse Resp BP Pulse Ox 97.0 F L 77 20 112/75 98 02/26/18 21:47 02/26/18 21:47 02/26/18 21:47 02/26/18 21:47 02/26/18 21:47 - Medications Medications: Current Medications Acetaminophen (Tylenol 325mg Tab) 650 mg PO Q4 PRN PRN Reason: Pain, Mild (1-3) Ascorbic Acid (Vitamin C 500 Mg Tab) 1,000 mg PO DAILY [facility] Last Admin: 02/26/18 08:47 Dose: 1,000 mg Cyclobenzaprine HCl (Flexeril) 10 mg PO Q8 PRN PRN Reason: Muscle spasm Last Admin: 02/26/18 23:42 Dose: 10 mg Diazepam (Valium) 10 mg PO BID [facility] Last Admin: 02/26/18 16:40 Dose: 10 mg Docusate Sodium (Colace) 100 mg PO BID [facility] Last Admin: 02/26/18 16:41 Dose: 100 mg Duloxetine HCl (Cymbalta) 60 mg PO DAILY [facility] Last Admin: 02/26/18 08:45 Dose: 60 mg Famotidine (Pepcid) 20 mg PO BID [facility] Last Admin: 02/26/18 16:40 Dose: 20 mg Hydrochlorothiazide (Microzide) 12.5 mg PO DAILY [facility] Last Admin: 02/26/18 08:46 Dose: 12.5 mg Lisinopril (Zestril) 20 mg PO DAILY [facility] Last Admin: 02/26/18 08:46 Dose: 20 mg Oxycodone/Acetaminophen (Percocet 5/325 Mg Tab) 2 tab PO Q6 [facility] Stop: 02/27/18 22:01 Last Admin: 02/27/18 03:22 Dose: 2 tab Prazosin HCl (Minipress) 2 mg PO HS [facility] Last Admin: 02/26/18 21:21 Dose: 2 mg - Head Exam Head Exam: NORMAL INSPECTION - Eye Exam Eye Exam: Normal appearance - Respiratory Exam Respiratory Exam: Clear to Ausculation Bilateral - Cardiovascular Exam Cardiovascular Exam: REGULAR RHYTHM - GI/Abdominal Exam GI & Abdominal Exam: Normal Bowel Sounds - Neurological Exam Neurological Exam: Awake, Oriented x3 - Psychiatric Exam Psychiatric exam: Normal Mood Assessment and Plan (1) Status post cervical spinal fusion Status: Acute (2) Alcohol abuse Status: Acute (3) CAD (coronary artery disease) Status: Acute (4) Chronic neck pain Status: Acute - Assessment and Plan (Free Text) Plan: Cont meds Cont tx Cont PT pain meds
--- NOTE | 2018-02-27 18:03 | CP.PCM.PN ---
Subjective - Date & Time of Evaluation Date of Evaluation: 02/27/18 Time of Evaluation: 18:01 - Subjective Subjective: Jose G Ford, born 1955 who has been admitted to [facility] N TCU for acute inpatient rehabilitation following a cervical C6/7 cervical discectomy and fusion. Post op stable and much improved right UE radicular symptoms that he related felt like an electrical cord into his arm. Patient with multiple admissions to this ER alone with public intoxication in spite of being on narcotic medications. I again broached this subject because he mentioned coming to my office for the trigger finger injections. When I mentioned the drinking her told me he is no longer drinking for approximately 2 months. I told him that if he fell after the cervical surgery and affected the hardware he risks significant complications. He understood. Objective - Vital Signs/Intake and Output Vital Signs (last 24 hours): Temp Pulse Resp BP Pulse Ox 97.5 F L 64 20 108/68 99 02/27/18 15:43 02/27/18 15:43 02/27/18 15:43 02/27/18 15:43 02/27/18 15:43 - Medications Medications: Current Medications Acetaminophen (Tylenol 325mg Tab) 650 mg PO Q4 PRN PRN Reason: Pain, Mild (1-3) Ascorbic Acid (Vitamin C 500 Mg Tab) 1,000 mg PO DAILY [facility] Last Admin: 02/27/18 09:05 Dose: 1,000 mg Cyclobenzaprine HCl (Flexeril) 10 mg PO Q8 PRN PRN Reason: Muscle spasm Last Admin: 02/26/18 23:42 Dose: 10 mg Diazepam (Valium) 10 mg PO BID [facility] Last Admin: 02/27/18 17:10 Dose: 10 mg Docusate Sodium (Colace) 100 mg PO BID [facility] Last Admin: 02/27/18 17:07 Dose: 100 mg Duloxetine HCl (Cymbalta) 60 mg PO DAILY [facility] Last Admin: 02/27/18 09:04 Dose: 60 mg Famotidine (Pepcid) 20 mg PO BID [facility] Last Admin: 02/27/18 17:08 Dose: 20 mg Hydrochlorothiazide (Microzide) 12.5 mg PO DAILY [facility] Last Admin: 02/27/18 09:04 Dose: 12.5 mg Lisinopril (Zestril) 20 mg PO DAILY [facility] Last Admin: 02/27/18 09:05 Dose: 20 mg Oxycodone/Acetaminophen (Percocet 5/325 Mg Tab) 2 tab PO Q6 [facility] Stop: 02/27/18 22:01 Last Admin: 02/27/18 17:08 Dose: 2 tab Prazosin HCl (Minipress) 2 mg PO HS [facility] Last Admin: 02/26/18 21:21 Dose: 2 mg - Constitutional Appears: Well, Non-toxic, No Acute Distress (wearing a cervical collar) - Head Exam Head Exam: ATRAUMATIC, NORMAL INSPECTION, NORMOCEPHALIC - Eye Exam Eye Exam: EOMI - ENT Exam ENT Exam: Mucous Membranes Moist - Respiratory Exam Respiratory Exam: absent: Respiratory Distress - GI/Abdominal Exam GI & Abdominal Exam: absent: Rigid - Neurological Exam Neurological Exam: Alert, CN II-XII Intact, Normal Gait - Psychiatric Exam Psychiatric exam: Normal Affect, Normal Mood - Skin Skin Exam: Warm Assessment and Plan - Assessment and Plan (Free Text) Assessment: 62 year old s/p cervical surgery I will follow up for trigger finger injection as an outpatient pain meds working well continue current care, making good gains in therapies
[2018-02-28] MEDS: Oxycodone/Acetaminophen 5/325 mg Tab PO SCH ×4 (03:40→22:36)
--- NOTE | 2018-02-28 18:42 | CP.PCM.PN ---
Subjective - Date & Time of Evaluation Date of Evaluation: 02/28/18 Time of Evaluation: 18:42 - Subjective Subjective: Patient seen ambulating in the hallway looking forward to discharge soon will come to my office to follow up for pain and trigger finger injections Objective - Vital Signs/Intake and Output Vital Signs (last 24 hours): Temp Pulse Resp BP Pulse Ox 97.8 F 94 H 20 145/94 H 96 02/28/18 16:27 02/28/18 16:27 02/28/18 16:27 02/28/18 16:27 02/28/18 16:27 - Medications Medications: Current Medications Acetaminophen (Tylenol 325mg Tab) 650 mg PO Q4 PRN PRN Reason: Pain, Mild (1-3) Ascorbic Acid (Vitamin C 500 Mg Tab) 1,000 mg PO DAILY [facility] Last Admin: 02/28/18 08:38 Dose: 1,000 mg Cyclobenzaprine HCl (Flexeril) 10 mg PO Q8 PRN PRN Reason: Muscle spasm Last Admin: 02/27/18 23:01 Dose: 10 mg Diazepam (Valium) 10 mg PO BID [facility] Last Admin: 02/28/18 16:18 Dose: 10 mg Docusate Sodium (Colace) 100 mg PO BID [facility] Last Admin: 02/28/18 16:19 Dose: 100 mg Duloxetine HCl (Cymbalta) 60 mg PO DAILY [facility] Last Admin: 02/28/18 08:39 Dose: 60 mg Famotidine (Pepcid) 20 mg PO BID [facility] Last Admin: 02/28/18 16:19 Dose: 20 mg Hydrochlorothiazide (Microzide) 12.5 mg PO DAILY [facility] Last Admin: 02/28/18 08:39 Dose: 12.5 mg Lisinopril (Zestril) 20 mg PO DAILY [facility] Last Admin: 02/28/18 08:39 Dose: 20 mg Oxycodone/Acetaminophen (Percocet 5/325 Mg Tab) 2 tab PO Q6 [facility] Stop: 03/03/18 04:01 Last Admin: 02/28/18 16:18 Dose: 2 tab Prazosin HCl (Minipress) 2 mg PO HS [facility] Last Admin: 02/27/18 21:14 Dose: 2 mg
[2018-03-01] MEDS: Oxycodone/Acetaminophen 5/325 mg Tab PO SCH ×4 (05:44→21:18)
--- NOTE | 2018-03-01 10:10 | CP.PCM.PN ---
Subjective - Date & Time of Evaluation Date of Evaluation: 03/01/18 Time of Evaluation: 08:00 - Subjective Subjective: Patient seen and examined at bedside comfortable. Minimal complaints of pain. Radicular symptoms continue to improve. No new complaints. Objective - Vital Signs/Intake and Output Vital Signs (last 24 hours): Temp Pulse Resp BP Pulse Ox 97.6 F 93 H 20 108/70 93 L 03/01/18 08:05 03/01/18 08:34 03/01/18 08:05 03/01/18 08:34 03/01/18 08:05 - Medications Medications: Current Medications Acetaminophen (Tylenol 325mg Tab) 650 mg PO Q4 PRN PRN Reason: Pain, Mild (1-3) Ascorbic Acid (Vitamin C 500 Mg Tab) 1,000 mg PO DAILY [facility] Last Admin: 03/01/18 08:34 Dose: 1,000 mg Cyclobenzaprine HCl (Flexeril) 10 mg PO Q8 PRN PRN Reason: Muscle spasm Last Admin: 02/27/18 23:01 Dose: 10 mg Diazepam (Valium) 10 mg PO BID [facility] Last Admin: 03/01/18 08:32 Dose: 10 mg Docusate Sodium (Colace) 100 mg PO BID [facility] Last Admin: 03/01/18 08:33 Dose: 100 mg Duloxetine HCl (Cymbalta) 60 mg PO DAILY [facility] Last Admin: 03/01/18 08:33 Dose: 60 mg Famotidine (Pepcid) 20 mg PO BID [facility] Last Admin: 03/01/18 08:34 Dose: 20 mg Hydrochlorothiazide (Microzide) 12.5 mg PO DAILY [facility] Last Admin: 03/01/18 08:34 Dose: 12.5 mg Lisinopril (Zestril) 20 mg PO DAILY [facility] Last Admin: 03/01/18 08:34 Dose: 20 mg Oxycodone/Acetaminophen (Percocet 5/325 Mg Tab) 2 tab PO Q6 [facility] Stop: 03/03/18 04:01 Last Admin: 03/01/18 05:44 Dose: 2 tab Prazosin HCl (Minipress) 2 mg PO HS [facility] Last Admin: 02/28/18 22:37 Dose: 2 mg - Neck Exam Additional comments: Incision CDI with dermabond, drain site clean healing well sensation diminished but improved to R MN/UN/RN R sided improved weakness [employer] strength/biceps/triceps/deltoid neg clonus Assessment and Plan (1) Status post cervical spinal fusion Assessment & Plan: POD# 8 s/p C6-7 ACDF doing well -PT/OT WBAT -soft cervical collar for comfort -neurosurgically stable for discharge -f/u in office within 2 weeks -above d/w Dr. Gray in agreement Status: Acute
--- NOTE | 2018-03-01 12:15 | PN ---
DATE: 03/01/2018 SUBJECTIVE: The patient seen and examined. Interim events noted. Consults noted and appreciated. The patient remains in transitional care unit. The patient is status post cervical surgery. The patient feels okay. The hand pain, tingling, numbness and paresthesia improved remarkably. According to the patient at least 80% better. No chest pain. No shortness of breath. PHYSICAL EXAMINATION: GENERAL: The patient is in no acute distress. VITAL SIGNS: Stable. HEART: S1 and S2, normal and regular. LUNGS: Good bilateral air exchange. ABDOMEN: Soft and nontender. EXTREMITIES: No edema. No calf swelling. No tenderness. No acute ischemia. No sign of acute distal neurovascular compromise. CENTRAL NERVOUS SYSTEM: Exam is essentially unchanged. DIAGNOSTIC DATA: Available diagnostic data reviewed. ASSESSMENT AND PLAN: Overall, the patient is medically stable. Plan as ordered. Casey Kwok MD
[2018-03-02] MEDS: Oxycodone/Acetaminophen 5/325 mg Tab PO SCH ×2 (05:09→09:22)
[2018-03-02 09:23] VITALS: BP 101/64; PULSE 71
--- NOTE | 2018-03-02 09:59 | CP.PCM.DIS ---
Provider - Provider Date of Admission: 02/23/18 14:19 Attending physician: Pedrito Hernadez MD Consults: 02/23/18 14:39 Case Management Referral Routine Comment: Physician Instructions: Reason For Exam: Reason for Referral: Discharge Planning 02/23/18 14:46 Physiatry Consult Routine Comment: Consulting Provider: Milton Newton Consulting Physician: Milton Newton Reason for Consult: 02/25/18 19:28 Neuro Surgery Consult Routine Comment: Consulting Provider: Peter Gray Consulting Physician: Peter Gray Reason for Consult: S/p cerivcal fusion Time Spent in preparation of Discharge (in minutes): 30 Diagnosis - Discharge Diagnosis (1) Status post cervical spinal fusion Status: Acute Hospital Course - Hospital Course Hospital Course: 62 yo M, hx of CAD and substance abuse, admitted to TCU for further therapy after C6-C7 discectomy and fusion. He had sustained multiple injuries after a traumatic fall including herniated discs and rotator cuff injuries. His post op period was unremarkable and was started on physical therapy and suggested continuation. Pt has been working with rehab team in TCU. Pt seen with Dr. Kwok this morning; is stable for discharge today. Discussed that he will follow up with his PMD in 1 week, surgeon Dr. Gray in 2 weeks, and Dr. Newton in 1-2 weeks. Discharge Exam - Head Exam Head Exam: ATRAUMATIC, NORMAL INSPECTION, NORMOCEPHALIC - Eye Exam Eye Exam: Normal appearance - Neck Exam Additional comments: in cervical collar - Respiratory Exam Respiratory Exam: NORMAL BREATHING PATTERN, UNREMARKABLE - Cardiovascular Exam Cardiovascular Exam: REGULAR RHYTHM - Extremities Exam Extremities exam: normal inspection - Neurological Exam Neurological exam: Alert, Oriented x3 - Psychiatric Exam Psychiatric exam: Normal Mood Discharge Plan - Follow Up Plan Condition: GOOD Disposition: HOME/ ROUTINE Additional Instructions: Please continue your home medications as before. Pain control as per pain management/neurosurg. Please follow up with Dr. Gray in his office in 2 weeks. Please follow up with Dr. Newton in 1-2 weeks. Please follow up with your primary care doctor in 1 week. Referrals: Peter Grya MD [Staff Provider] - Pedrito Hernadez MD [Staff Provider] - Milton Newton MD [Staff Provider] -
[2018-03-02 10:23] VITALS: TEMP 97.3; O2SAT 95
--- NOTE | 2018-03-02 16:22 | CP.PCM.PN ---
Subjective - Date & Time of Evaluation Date of Evaluation: 03/02/18 Time of Evaluation: 14:30 - Subjective Subjective: Patient seen prior to discharge and we discussed outpatient follow up medications were written I informed him that I will only given 2 weeks of the Valium at this time he understood and has a physician that works with him on PTSD that prescribes it typically Objective - Vital Signs/Intake and Output Vital Signs (last 24 hours): Temp Pulse Resp BP Pulse Ox 97.3 F L 71 20 101/64 95 03/02/18 10:23 03/02/18 10:23 03/02/18 10:23 03/02/18 10:23 03/02/18 10:23 - Medications Medications: Current Medications Acetaminophen (Tylenol 325mg Tab) 650 mg PO Q4 PRN PRN Reason: Pain, Mild (1-3) Ascorbic Acid (Vitamin C 500 Mg Tab) 1,000 mg PO DAILY [facility] Last Admin: 03/02/18 09:19 Dose: 1,000 mg Cyclobenzaprine HCl (Flexeril) 10 mg PO Q8 PRN PRN Reason: Muscle spasm Last Admin: 03/02/18 14:19 Dose: 10 mg Diazepam (Valium) 10 mg PO BID [facility] Last Admin: 03/02/18 09:22 Dose: 10 mg Docusate Sodium (Colace) 100 mg PO BID [facility] Last Admin: 03/02/18 09:19 Dose: 100 mg Duloxetine HCl (Cymbalta) 60 mg PO DAILY [facility] Last Admin: 03/02/18 09:20 Dose: 60 mg Famotidine (Pepcid) 20 mg PO BID [facility] Last Admin: 03/02/18 09:20 Dose: 20 mg Hydrochlorothiazide (Microzide) 12.5 mg PO DAILY [facility] Last Admin: 03/02/18 09:20 Dose: 12.5 mg Lisinopril (Zestril) 20 mg PO DAILY [facility] Last Admin: 03/02/18 09:20 Dose: 20 mg Oxycodone/Acetaminophen (Percocet 5/325 Mg Tab) 2 tab PO Q6 [facility] Stop: 03/03/18 04:01 Last Admin: 03/02/18 09:22 Dose: 2 tab Prazosin HCl (Minipress) 2 mg PO HS [facility] Last Admin: 03/01/18 21:19 Dose: 2 mg
== END 2018-03-02 16:29 | disposition home or self-care (01) | DRG 561 ==
LOC: H.TCU 14:19
PROVIDERS: ADMIT Family Medicine; ATTEND Family Medicine
PROC: F07Z9FZ Gait Training/Functional Ambulation Treatment using Assistive, Adaptive, Supportive or Protective Equipment (ICD-10-PCS; principal; 2018-02-23)
PROC: F08Z4FZ Home Management Treatment using Assistive, Adaptive, Supportive or Protective Equipment (ICD-10-PCS; 2018-02-23)
PROC: F07K6FZ Therapeutic Exercise Treatment of Musculoskeletal System - Upper Back / Upper Extremity using Assistive, Adaptive, Supportive or Protective Equipment (ICD-10-PCS; 2018-02-24)
PROC: F07L6FZ Therapeutic Exercise Treatment of Musculoskeletal System - Lower Back / Lower Extremity using Assistive, Adaptive, Supportive or Protective Equipment (ICD-10-PCS; 2018-02-24)
DX: Z47.89 Encounter for other orthopedic aftercare (principal); G89.29 Other chronic pain; Z98.1 Arthrodesis status; M54.2 Cervicalgia; I25.10 Atherosclerotic heart disease of native coronary artery without angina pectoris; I10 Essential (primary) hypertension; F10.10 Alcohol abuse, uncomplicated; F43.10 Post-traumatic stress disorder, unspecified; M65.332 Trigger finger, left middle finger; M65.342 Trigger finger, left ring finger; R26.81 Unsteadiness on feet; Z95.5 Presence of coronary angioplasty implant and graft; Z90.49 Acquired absence of other specified parts of digestive tract; Z86.19 Personal history of other infectious and parasitic diseases; Z87.891 Personal history of nicotine dependence

== ENCOUNTER 2018-05-01 10:23 | Inpatient (IN) | payer MEDICARE, OTHER ==
[2018-05-01 10:24] VITALS: BMI 25.0
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
[2018-05-01] MEDS ORDERED: Morphine 4 MG/ML VIAL IM STA (12:37)
--- NOTE | 2018-05-01 12:56 | CP.PCM.CON ---
History of Present Illness - History of Present Illness History of Present Illness: Podiatry consult note for Dr. Kvng Snow 62 y/o male with PMHx of Anemia, Arthritis (general,hands), Back Problems, Depression, Fractures, HTN, Post Traumatic Stress Disorder, Chronic Pain (neck) was seen and evaluated in the ED for right leg injury on Monday. Patient states it occurred in [facility] and [place] [employer] Patient was taken to the [facility] and surgery was recommended. Patient states he did not want to stay in [place] and came to [place] to be evaluated for ankle fx. Patient reports he lives alone at home with multiple stairs, and has not been able to use the crutches for ambulation. Patient denies any other symptoms or injury. Patient denies f/n/v/sob/cp PMHx: as above PSHx: Appendectomy, Back Surgery, Cholecystectomy, Hernia Repair Allergies: none Social History: denies smoking, admits to drinking wine occasionally Review of Systems - Review of Systems All systems: reviewed and no additional remarkable complaints except Review of Systems: As per HPI Past Patient History - Infectious Disease Hx of Infectious Diseases: None - Past Medical History & Family History Past Medical History?: Yes - Past Social History Smoking Status: Former Smoker - CARDIAC Hx Hypertension: Yes - PULMONARY Hx Respiratory Disorders: No - NEUROLOGICAL Hx Neurological Disorder: Yes - HEENT Hx HEENT Problems: No - RENAL Hx Chronic Kidney Disease: No - ENDOCRINE/METABOLIC Hx Endocrine Disorders: No - HEMATOLOGICAL/ONCOLOGICAL Hx Anemia: Yes - INTEGUMENTARY Hx Dermatological Problems: No - MUSCULOSKELETAL/RHEUMATOLOGICAL Hx Arthritis: Yes (general,hands) Hx Fractures: Yes - GASTROINTESTINAL Hx Gastrointestinal Disorders: No - GENITOURINARY/GYNECOLOGICAL Hx Genitourinary Disorders: No - PSYCHIATRIC Hx Depression: Yes Hx Post Traumatic Stress Disorder: Yes - SURGICAL HISTORY Hx Appendectomy: Yes Hx Cholecystectomy: Yes - ANESTHESIA Hx Anesthesia: Yes Hx Anesthesia Reactions: No Hx Malignant Hyperthermia: No Meds Allergies/Adverse Reactions: Allergies Allergy/AdvReac Type Severity Reaction Status Date / Time No Known Allergies Allergy Verified 02/23/18 13:02 Physical Exam - Constitutional Appears: Well, Non-toxic, No Acute Distress - Head Exam Head Exam: ATRAUMATIC, NORMOCEPHALIC - Extremities Exam Additional comments: Bilateral Lower Extremity Exam VASC: DP and PT pulses palpable bilaterally, CFT less than 3 seconds X 10, TG warm to cool bilaterally proximal to distal, non-pitting edema noted to the right ankle NEURO: epicritic and protective sensations both intact DERM: moderate non-pitting edema noted to the ankle, ecchymosis noted along the medial aspect of the foot, no open lesions, no wounds, no erythema, no signs of infection ORTHO: patient able to wiggle toes, pain with ankle range of motion, pain on palpation along the medial ankle and lateral ankle, patient guarding due to pain - Neurological Exam Neurological exam: Alert, Oriented x3 - Psychiatric Exam Psychiatric exam: Normal Affect, Normal Mood Results - Vital Signs Recent Vital Signs: Last Vital Signs Temp 98.1 F 05/01/18 10:34 Pulse 101 H 05/01/18 10:34 Resp 18 05/01/18 10:34 BP 123/69 05/01/18 10:34 Pulse Ox 100 05/01/18 11:30 Assessment & Plan - Assessment and Plan (Free Text) Assessment: 62 y/o male patient admitted for right ankle fracture, scheduled for surgery tomorrow 05/02/18 at 12:[address] Snow Plan: Patient seen and evaluated at bedside Plan discussed with Dr. Snow Chart, labs and vitals reviewed- afebrile, absent leukocytosis Ordered Right Tib-Fib, Ankle and Foot X-rays- comminuted intra articular fracture of the lateral malleolus with displaced transverse fracture of the medial malleolus, no proximal fracture noted Ordered CT of the right leg, ankle and foot for surgical planning Patient placed in a posterior splint at this time Patient will be admitted for surgery tomorrow with Dr. Snow at 12:30 PM Patient to ice, elevate extremity Patient to remain non-weight bearing to the right, physical therapy order placed Patient NPO after midnight, only SCDs at this time Medical Clearance Requested Podiatry will continue to follow patient while in house Thank you for the consult - Date & Time Date: 05/01/18 Time: 15:44
[2018-05-01] MEDS ORDERED: Morphine 4 MG/ML VIAL ONE (13:00)
--- NOTE | 2018-05-01 13:02 | RAD ---
Date of service: 05/01/2018 PROCEDURE: Radiographs of the right tibia and fibula. HISTORY: bimalleoular fx COMPARISON: May 01, 2018 right foot and right ankle TECHNIQUE: Frontal and lateral views obtained. FINDINGS: BONES: Incompletely visualize distal tibial and fibular fractures. More proximally common no osseous abnormalities. JOINT SPACES: Unremarkable. OTHER FINDINGS: None. IMPRESSION: No proximal tibial or fibular fractures identified. Distal fractures are better seen on the dedicated views of the right ankle. Limitations of the current study: Detail obscured by overlying fiberglass cast.
--- NOTE | 2018-05-01 13:03 | RAD ---
Date of service: 05/01/2018 PROCEDURE: Right Ankle Radiographs. HISTORY: ankle fx COMPARISON: May 01, 2018 FINDINGS: BONES: Distal fibular and tibial fractures identified. Major fracture fragments are anatomically aligned. JOINTS: Normal. No osteoarthritis. Ankle mortise maintained. Talar dome intact SOFT TISSUES: Normal. OTHER FINDINGS: None. IMPRESSION: Nondisplaced fractures distal fibula and medial malleolar region. Limitations of the current study: Detail obscured by overlying fiberglass cast.
--- NOTE | 2018-05-01 13:03 | RAD ---
Date of service: 05/01/2018 PROCEDURE: Right Foot Radiographs. HISTORY: ankle fx COMPARISON: May 01, 2018 FINDINGS: BONES: No visible right foot fractures. JOINTS: Minor hallux valgus deformity. Multiple hammertoe deformities 3rd through 5th digits. SOFT TISSUES: Normal. OTHER FINDINGS: None. IMPRESSION: No acute findings related to/ accounting for the clinical presentation.
--- NOTE | 2018-05-01 14:24 | CT ---
Date of service: 05/01/2018 PROCEDURE: CT of the right tibia fibula HISTORY: Injury. COMPARISON: Correlation made with concurrent radiographs of the right tibia fibula and right ankle. TECHNIQUE: Contiguous axial images of the right right tibia and fibula were obtained. Coronal and sagittal reformats were generated. Radiation dose: Total exam DLP = 600.98 mGy-cm. This CT exam was performed using one or more of the following dose reduction techniques: Automated exposure control, adjustment of the mA and/or kV according to patient size, and/or use of iterative reconstruction technique. FINDINGS: BONES: There is a comminuted intra-articular fracture of the lateral malleolus with a displaced intra-articular fracture of the medial malleolus the smaller fragment of which is slightly inferiorly displaced. In addition, there is also a nondisplaced comminuted appearing intra-articular fracture of the distal fibula. Ankle mortise is relatively maintained SOFT TISSUES: There is mild surrounding soft tissue swelling. In addition, there are infiltration/edematous changes within the subcutaneous tissues (predominantly medial in location) extending proximally to the mid calf level.. Vascular calcifications are present. IMPRESSION: There is a comminuted intra-articular fractures of the lateral malleolus and slightly inferiorly displaced fracture of the medial malleolus which also extends into the medial joint space margin of the ankle mortise. Nondisplaced comminuted intra-articular fracture of the distal fibula. Surrounding soft tissue swelling. There is a infiltration and mild edema extending superiorly, predominately involving the the medial soft tissues, to approximately mid calf level.
--- NOTE | 2018-05-01 16:24 | RAD ---
Date of service: 05/01/2018 HISTORY: routine COMPARISON: 02/20/2018 FINDINGS: LUNGS: No active pulmonary disease. PLEURA: No significant pleural effusion identified, no pneumothorax apparent. CARDIOVASCULAR: Atherosclerotic calcifications identified primarily aortic arch. No radiographic findings to suggest acute or significant cardiovascular disease. OSSEOUS STRUCTURES: No significant abnormalities. Posterior lateral and contiguous healed right rib fractures. VISUALIZED UPPER ABDOMEN: Normal. OTHER FINDINGS: None. IMPRESSION: No active disease. No significant interval change compared to the prior examination(s).
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
[2018-05-01 18:24] LABS: BASO # 0.1 K/uL (0.0-0.2); BASO % 1.2 % (0.0-2.0); EOS # 0.1 K/uL (0.0-0.7); EOS % 1.9 % (0.0-4.0); HEMOGLOBIN 12.5 g/dL (12.0-18.0); LYMPH % 35.3 % (20.0-40.0); MEAN CELL VOLUME 96.3 fl (80.0-94.0); MEAN CORPUSCULAR HEMOGLOBIN 32.4 pg (27.0-31.0); MEAN CORPUSCULAR HGB CONC 33.7 g/dL (33.0-37.0); MEAN PLATELET VOLUME 9.8 fl (7.2-11.7); MONO # 0.9 K/uL (0.0-0.8); NEUT # 2.6 K/uL (1.8-7.0); NEUT % 45.6 % (50.0-75.0); NRBC % 0.5 % (0.0-0.0); RBC 3.87 Mil/uL (4.40-5.90); RED CELL DISTRIBUTION WIDTH 15.1 % (11.5-14.5); WHITE BLOOD COUNT 5.7 K/uL (4.8-10.8)
[2018-05-01 18:36] LABS: ALB/GLOB RATIO 0.9 (1.0-2.1); ALBUMIN 3.8 g/dL (3.5-5.0); ALT/SGPT 89 U/L (21-72); AST/SGOT 185 U/L (17-59); BLOOD UREA NITROGEN 15 mg/dl (9-20); CALCIUM 9.3 mg/dL (8.4-10.2); GFR NON-AFRICAN AMERICAN > 60
[2018-05-01] MEDS ORDERED: Patient's Own Med (Oxycodone Hcl/Acetaminophen [Percocet 10-325 Mg Tablet] 1 TAB) PO PRN (19:04)
[2018-05-01] MEDS: Morphine 4 MG/ML VIAL IVP PRN (19:50)
[2018-05-01] MEDS: Sodium Chloride 0.9% 1,000 ML IV SCH (19:51)
[2018-05-01 20:04] LABS: PROTHROMBIN TIME 11.7 Seconds (9.8-13.1)
[2018-05-01 20:07] LABS: PARTIAL THROMBOPLASTIN TIME 42.7 Seconds (25.6-37.1)
[2018-05-02] MEDS: Sodium Chloride 0.9% 1,000 ML IV SCH ×3 (03:45→12:25)
[2018-05-02 06:46] LABS: BASO % 0.7 % (0.0-2.0); EOS # 0.2 K/uL (0.0-0.7); EOS % 4.4 % (0.0-4.0); HEMOGLOBIN 10.9 g/dL (12.0-18.0); LYMPH # 1.8 K/uL (1.0-4.3); MEAN CELL VOLUME 96.7 fl (80.0-94.0); MEAN CORPUSCULAR HEMOGLOBIN 32.1 pg (27.0-31.0); MEAN CORPUSCULAR HGB CONC 33.2 g/dL (33.0-37.0); MONO # 0.8 K/uL (0.0-0.8); MONO % 18.2 % (0.0-10.0); NEUT # 1.5 K/uL (1.8-7.0); NEUT % 35.7 % (50.0-75.0); NRBC % 0.1 % (0.0-0.0); RBC 3.39 Mil/uL (4.40-5.90); RED CELL DISTRIBUTION WIDTH 15.2 % (11.5-14.5); WHITE BLOOD COUNT 4.3 K/uL (4.8-10.8)
[2018-05-02 07:06] LABS: ALBUMIN 3.5 g/dL (3.5-5.0); ALT/SGPT 94 U/L (21-72); AST/SGOT 108 U/L (17-59); BLOOD UREA NITROGEN 16 mg/dl (9-20); GFR NON-AFRICAN AMERICAN > 60
[2018-05-02] MEDS ORDERED: HYDROCHLOROTHIAZIDE PO SCH (09:00)
[2018-05-02] MEDS ORDERED: [UNRECOGNIZED DRUG - OTHER] PO SCH (09:00)
[2018-05-02] MEDS ORDERED: BENAZEPRIL PO SCH (09:00)
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
--- NOTE | 2018-05-02 09:04 | CARD ---
APPROVED REPORT Date of service: 05/01/2018 EKG Measurement Heart [id number] <Conclusion> Normal sinus rhythm Normal ECG
--- NOTE | 2018-05-02 10:37 | CP.PCM.PN ---
Subjective - Date & Time of Evaluation Date of Evaluation: 05/02/18 Time of Evaluation: 10:34 - Subjective Subjective: Podiatry progress note for Dr. Snow 62 y/o male patient seen and evaluated at bedside prior to surgery. Patient's splint is clean, dry and intact, and patient denies any other complaints at this time. Patient states he last ate last night. Objective - Vital Signs/Intake and Output Vital Signs (last 24 hours): Temp Pulse Resp BP Pulse Ox 97.8 F 80 20 120/81 95 05/02/18 08:27 05/02/18 08:27 05/02/18 08:27 05/02/18 08:27 05/02/18 08:27 - Medications Medications: Current Medications Ascorbic Acid (Vitamin C 500 Mg Tab) 500 mg PO DAILY [facility] Last Admin: 05/02/18 08:39 Dose: Not Given Aspirin (Ecotrin) 81 mg PO BID [facility] Last Admin: 05/02/18 08:39 Dose: Not Given Diazepam (Valium) 10 mg PO BID [facility] Last Admin: 05/02/18 08:39 Dose: Not Given Duloxetine HCl (Cymbalta) 60 mg PO DAILY [facility] Last Admin: 05/02/18 08:39 Dose: Not Given Home Med (Oxycodone Hcl/Acetaminophen [Percocet 10-325 Mg Tablet]) 1 tab PO Q6 PRN PRN Reason: Pain, severe (8-10) Hydrochlorothiazide (Microzide) 12.5 mg PO DAILY [facility] Last Admin: 05/02/18 08:39 Dose: Not Given Sodium Chloride (Sodium Chloride 0.9%) 1,000 mls @ 125 mls/hr IV .Q8H [facility] Stop: 05/02/18 19:36 Last Admin: 05/02/18 05:58 Dose: 125 mls/hr Ketorolac Tromethamine (Toradol) 15 mg IVP Q6 PRN PRN Reason: Pain, moderate (4-7) Last Admin: 05/02/18 10:25 Dose: 15 mg Lisinopril (Zestril) 20 mg PO DAILY [facility] Last Admin: 05/02/18 08:39 Dose: Not Given Morphine Sulfate (Morphine) 4 mg IVP Q4 PRN PRN Reason: Pain, severe (8-10) Last Admin: 05/01/18 19:50 Dose: 4 mg Prazosin HCl (Minipress) 2 mg PO HS [facility] Last Admin: 05/01/18 22:12 Dose: 2 mg Tizanidine HCl (Zanaflex) 4 mg PO HS PRN PRN Reason: Muscle spasm Zolpidem Tartrate (Ambien) 5 mg PO HS [facility] Last Admin: 05/01/18 22:12 Dose: 5 mg - Labs Labs: 05/02/18 06:15 05/02/18 06:15 PT 11.7 Seconds (9.8-13.1) 05/01/18 19:51 INR 1.0 05/01/18 19:51 APTT 42.7 Seconds (25.6-37.1) H 05/01/18 19:51 - Constitutional Appears: Well, Non-toxic, No Acute Distress - Head Exam Head Exam: ATRAUMATIC, NORMOCEPHALIC - Extremities Exam Additional comments: Patient in splint C/D/I Sensation intact able to wiggle digits - Neurological Exam Neurological Exam: Alert, Awake, Oriented x3 - Psychiatric Exam Psychiatric exam: Normal Affect, Normal Mood Assessment and Plan - Assessment and Plan (Free Text) Assessment: 62 y/o male patient admitted for right ankle fracture, scheduled for surgery today 05/02/18 at 12:[address] Snow Plan: Patient seen and evaluated at bedside Plan discussed with Dr. Snow Chart, labs and vitals reviewed- afebrile, absent leukocytosis Ordered Right Tib-Fib, Ankle and Foot X-rays- comminuted intra articular fracture of the lateral malleolus with displaced transverse fracture of the medial malleolus, no proximal fracture noted Ordered CT of the right leg, ankle and foot for surgical planning Patient in a posterior splint at this time Patient surgery today with Dr. Snow at 12:30 PM Patient to ice, elevate extremity Patient to remain non-weight bearing to the right, physical therapy order placed Medical Clearance: cleared for surgery as medically necessary. advise caution w/ anesthesia re: elev lft and h/o alcohol abuse. Podiatry will continue to follow patient while in house
[2018-05-02] MEDS ORDERED: Succinylcholine 200 mg/10 ml Inj IV ONE (12:16)
[2018-05-02] MEDS ORDERED: Ropivacaine 0.5% 30ML IV ONE ×2 (12:17→12:37)
[2018-05-02] MEDS ORDERED: Lidocaine 4% (Laryng-O-Jet) Kit MM ONE (12:18)
[2018-05-02] MEDS ORDERED: Rocuronium 10 mg/ml (5 ml) ONE (12:18)
[2018-05-02] MEDS ORDERED: Midazolam 2 MG/2 ML VIAL ONE (12:18)
[2018-05-02] MEDS ORDERED: Propofol 10 mg/ml Inj (20 ML) ONE (12:18)
[2018-05-02] MEDS ORDERED: ePHEDrine 50 mg/ml Inj ONE ×2 (12:18→13:30)
[2018-05-02] MEDS ORDERED: ceFAZolin 2 GM in Sodium Chloride 0.9% 100 ML IVPB ONE (12:28)
[2018-05-02] MEDS ORDERED: Bupivacaine 0.5% Inj(30mL) IJ ONE (12:28)
[2018-05-02] MEDS ORDERED: Lidocaine 1% Inj (20ml) IJ ONE (12:28)
[2018-05-02] MEDS ORDERED: Sodium Chloride 0.9% 1,000 ML IV SCH (12:30)
[2018-05-02] MEDS ORDERED: Bupivacaine HCl 0.5% PF (30 ml) Inj ONE (12:36)
[2018-05-02] MEDS ORDERED: Lidocaine 2% Inj (20ml) ONE (12:38)
[2018-05-02] MEDS ORDERED: Lactated Ringer's 1,000 ML IV ONE ×2 (12:45→14:50)
[2018-05-02] MEDS ORDERED: Dexamethasone 4 mg/1 ml ONE (14:40)
--- NOTE | 2018-05-02 15:20 | PCM.SURG1 ---
Surgeon's Initial Post Op Note - Surgeon's Notes Surgeon: Dr. Kvng Snow Athlete Manager: Yuriy Ratliff PGY3, Alexei Hernandez PGY3, Janay Farmer PGY1 Type of Anesthesia: General LMA Anesthesia Administered By: Dr. Rudolph Pre-Operative Diagnosis: Right ankle fracture Operative Findings: see dictation. Injectibles: popliteal and femoral block. Materials: 3.5 cannulated 3- mm screw, and 4.0 cannulated x 50 mm Post-Operative Diagnosis: same Operation Performed: Right medial malleolus ORIF and distal tibia ORIF Specimen/Specimens Removed: none Estimated Blood Loss: EBL {In ML}: 5 Blood Products Given: N/A Drains Used: No Drains Post-Op Condition: Good Date of Surgery/Procedure: 05/02/18 Time of Surgery/Procedure: 15:20
[2018-05-02] MEDS ORDERED: HYDROmorphone 0.5 mg/0.5 ml ISec IVP PRN (15:21)
[2018-05-02] MEDS ORDERED: Acetaminophen-Codeine 300/30 mg Tab PO PRN (15:22)
--- NOTE | 2018-05-02 16:25 | RAD ---
Date of service: 05/02/2018 PROCEDURE: Right Ankle Radiographs. HISTORY: s/p ankle ORIF COMPARISON: 05/01/2018 FINDINGS: BONES: Status post ORIF oblique medial malleolar fracture and anterior malleolar fracture. Nondisplaced distal fibular fracture again noted. No additional fracture identified. JOINTS: Normal. No osteoarthritis. Ankle mortise maintained. Talar dome intact SOFT TISSUES: Normal. OTHER FINDINGS: None. IMPRESSION: ORIF medial and anterior malleolar fractures.
[2018-05-02] MEDS: Acetaminophen-Codeine 300/30 mg Tab PO PRN (20:47)
[2018-05-02] MEDS: Morphine 4 MG/ML VIAL IVP PRN (21:55)
[2018-05-03] MEDS: Morphine 5 MG/ML SYRINGE IVP PRN ×3 (04:05→23:55)
--- NOTE | 2018-05-03 08:07 | RAD ---
Date of service: 05/02/2018 PROCEDURE: Right Ankle Radiographs. HISTORY: s/p right ankle ORIF COMPARISON: Right ankle radiographs 05/01/2018. FINDINGS: BONES: Patient status post open reduction internal fixation of the medial malleolus fracture by 2 compression screws and the anterior lateral malleolus by a solitary compression screw. JOINTS: Normal. No osteoarthritis. Ankle mortise maintained. Talar dome intact SOFT TISSUES: Limited postoperative soft tissue edema is seen medially and anteriorly. OTHER FINDINGS: None. IMPRESSION: Status post ORIF medial anterior malleolar fractures with limited postoperative soft tissue changes identified. No interval fracture or dislocation appreciable.
--- NOTE | 2018-05-03 08:50 | CP.PCM.PN ---
Subjective - Date & Time of Evaluation Date of Evaluation: 05/03/18 Time of Evaluation: 08:49 - Subjective Subjective: pt w/ pain to r ankle. no f/c, n/v/d. am labs pending. podiatry reeval pending. pain controlled. fell last night w/o any complaints at present. splint c/d/i Objective - Vital Signs/Intake and Output Vital Signs (last 24 hours): Temp Pulse Resp BP Pulse Ox 97.4 F L 90 20 125/80 96 05/03/18 08:15 05/03/18 08:15 05/03/18 08:15 05/03/18 08:15 05/03/18 08:15 - Medications Medications: Current Medications Acetaminophen (Tylenol 325mg Tab) 650 mg PO Q6 PRN PRN Reason: Pain, Mild (1-3) Acetaminophen/Codeine Phosphate (Tylenol/Codeine 300 Mg/30 Mg) 1 tab PO Q4 PRN PRN Reason: Pain, moderate (4-7) Acetaminophen/Codeine Phosphate (Tylenol/Codeine 300 Mg/30 Mg) 2 tab PO Q6 PRN PRN Reason: Pain, severe (8-10) Last Admin: 05/02/18 20:47 Dose: 2 tab Ascorbic Acid (Vitamin C 500 Mg Tab) 500 mg PO DAILY [facility] Last Admin: 05/02/18 08:39 Dose: Not Given Aspirin (Ecotrin) 81 mg PO BID [facility] Last Admin: 05/02/18 17:29 Dose: Not Given Diazepam (Valium) 10 mg PO BID [facility] Last Admin: 05/02/18 17:33 Dose: Not Given Duloxetine HCl (Cymbalta) 60 mg PO DAILY [facility] Last Admin: 05/02/18 08:39 Dose: Not Given Hydrochlorothiazide (Microzide) 12.5 mg PO DAILY [facility] Last Admin: 05/02/18 08:39 Dose: Not Given Hydromorphone HCl (Dilaudid) 0.5 mg IVP Q5M PRN PRN Reason: Pain, moderate (4-7) Sodium Chloride (Sodium Chloride 0.9%) 1,000 mls @ 0 mls/hr IV .Q0M [facility] Stop: 05/03/18 12:29 Last Admin: 05/02/18 21:47 Dose: 100 mls/hr Ketorolac Tromethamine (Toradol) 15 mg IVP Q6 PRN PRN Reason: Pain, moderate (4-7) Last Admin: 05/02/18 10:25 Dose: 15 mg Ketorolac Tromethamine (Toradol) 30 mg IVP ONCE PRN PRN Reason: Pain, moderate (4-7) Lisinopril (Zestril) 20 mg PO DAILY [facility] Last Admin: 05/02/18 08:39 Dose: Not Given Morphine Sulfate (Morphine) 4 mg IVP Q4 PRN PRN Reason: Pain, severe (8-10) Last Admin: 05/03/18 04:05 Dose: 4 mg Prazosin HCl (Minipress) 2 mg PO HS [facility] Last Admin: 05/02/18 21:48 Dose: 2 mg Tizanidine HCl (Zanaflex) 4 mg PO HS PRN PRN Reason: Muscle spasm Zolpidem Tartrate (Ambien) 5 mg PO HS [facility] Last Admin: 05/02/18 21:48 Dose: 5 mg - Labs Labs: 05/02/18 06:15 05/02/18 06:15 PT 11.7 Seconds (9.8-13.1) 05/01/18 19:51 INR 1.0 05/01/18 19:51 APTT 42.7 Seconds (25.6-37.1) H 05/01/18 19:51 - Constitutional Appears: Well, Non-toxic, No Acute Distress - Head Exam Head Exam: ATRAUMATIC, NORMAL INSPECTION, NORMOCEPHALIC - Eye Exam Eye Exam: EOMI, Normal appearance, PERRL Pupil Exam: NORMAL ACCOMODATION, PERRL - ENT Exam ENT Exam: Mucous Membranes Moist, Normal Exam - Neck Exam Neck Exam: Full ROM, Normal Inspection. absent: Lymphadenopathy - Respiratory Exam Respiratory Exam: Clear to Ausculation Bilateral, NORMAL BREATHING PATTERN - Cardiovascular Exam Cardiovascular Exam: REGULAR RHYTHM, RRR, +S1, +S2. absent: Murmur - GI/Abdominal Exam GI & Abdominal Exam: Soft, Normal Bowel Sounds. absent: Tenderness - Extremities Exam Extremities Exam: Full ROM, Normal Capillary Refill, Normal Inspection. absent: Joint Swelling, Pedal Edema Additional comments: rle splint c/d/i distal pms intact - Back Exam Back Exam: NORMAL INSPECTION - Neurological Exam Neurological Exam: Alert, Awake, CN II-XII Intact, Normal Gait, Oriented x3 - Psychiatric Exam Psychiatric exam: Normal Affect, Normal Mood - Skin Skin Exam: Dry, Intact, Normal Color, Warm Assessment and Plan (1) DVT prophylaxis Assessment & Plan: scd and ae hose ambulation w/ PT/walker Status: Acute (2) Ankle fracture Assessment & Plan: podiatry post op day 1 pain control does not wish for morphine, wishes to be back on oral perocet SW/CM for dispo planning Status: Acute
--- NOTE | 2018-05-03 09:14 | OP ---
PROCEDURE DATE: 05/02/2018 SURGEON: Kvng Snow DPM. ASSISTANTS: Charlotte Ratliff DPM, PGY-3; Jazmin Hernandez DPM, PGY-3; Leonela Farmer DPM, PGY-1. BUILDING SERVICES TECHNICIAN: Hu Caro MD. ANESTHESIA: General with regional block, popliteal, and femoral. PREOPERATIVE DIAGNOSES: 1. Displaced fracture of medial malleolus, right ankle. 2. Displaced fracture of distal tibia, right ankle. POSTOPERATIVE DIAGNOSES: 1. Displaced fracture of medial malleolus, right ankle. 2. Displaced fracture of distal tibia, right ankle. NAME OF PROCEDURES: 1. Open reduction with internal fixation of displaced medial malleolar fracture with screw fixation in right ankle. 2. Open reduction with internal fixation of displaced distal tibial fracture, right ankle with screw fixation. INDICATION: The patient is a 62-year-old male with the above-mentioned diagnosis. Of note, the patient did suffer injury with his right ankle several days prior and is now admitted for surgical correction of the right ankle fracture. The patient signed the consent after careful explanation of all risks, benefits, complications, and alternatives for surgical procedure. No guarantees were given nor implied. Ancef 2 g IV was given to the patient prior to the procedure. N.p.o. status was confirmed prior to bringing the patient to the operating room. PREPARATION: The patient was brought to the operating room and placed on the operating room table in a supine position. A well-padded pneumatic thigh tourniquet was placed to the patient's right upper thigh area with plenty of Webril cast padding. Once general anesthesia was achieved, the patient's right ankle was then prepped and draped in the usual sterile manner. Esmarch bandage was utilized to exsanguinate the patient's right foot and ankle. A pneumatic thigh tourniquet was then inflated to 300 mmHg and the procedure begun. PROCEDURE #1: Open reduction with internal fixation of displaced medial malleolar fracture of the right ankle. Our attention was then directed over the medial aspect of the patient's right ankle joint at the level of the medial malleolus where a palpable deficit could be appreciated at this time. Using a #15 blade, an approximately 4-cm curvilinear incision was made directly over the medial malleolus. Care was taken to avoid all vital neurovascular structures and bleeders cauterized as necessary. Next, a saline moist gauze was utilized to nicely dissect the tissue in this area. Next, a curvilinear incision was made directly over the medial malleolus. A fernández elevator was utilized to dissect the periosteum from the medial malleolar fracture as the operative site. Care was taken to retract the posterior tibial tendon in an inferior position during the dissection, and at this time, all hematoma was removed from the fracture site. The surgical site was flushed with copious amounts of sterile normal saline solution. At this time, medial malleolar fracture was then mainly reproduced with the ankle placed in inverted position, and two K-wires inserted off the medial malleolus into the distal aspects of the tibia, and the position of the K-wires were checked intraoperatively using fluoroscopic guidance with excellent position of the K-wires achieved. Next, using standard AO principles and techniques, two Synthes 4 x 15 mm partially threaded cannulated screws were then inserted and were placed across the K-wires and across the fractures with excellent compression and reduction of the fracture fragment at this time which was checked using intraoperative fluoroscopy. The K-wires were then removed from the medial malleolus. The surgical site was flushed with copious amounts of sterile normal solution. The periosteal tissues in deltoid fibers were repaired using 2-0 Vicryl. The subcutaneous tissue was reapproximated using 3-0 Vicryl and the skin edges were reapproximated using 3-0 Nylon sutures. PROCEDURE #2: Open reduction with internal fixation of displaced distal tibia fracture with a screw fixation. Our attention was directed over the anterolateral aspect of the patient's right ankle joint at the level of the distal tibia. Using intraoperative fluoroscopy, a fracture fragment was identified at this level of tibia. Using a #15 blade, an incision measuring approximately 4 cm in length was made over the distal lateral aspect of the tibia with extra care being taken to avoid the superficial peroneal nerve during dissection. All the bleeders were cauterized and ligated as necessary and superficial peroneal nerve was encountered and was retracted in a lateral fashion. The surgical incision was then deepened using a combination of sharp and blunt tissue dissection down to the level of the periosteum and the distal tibia where a sharp linear incision was made. A fernández elevator was utilized to reflect the periosteal tissue medially and laterally thus exposing the fracture fragment into the operative site. Surgical site was flushed with copious amounts of normal sterile saline solution. Any hematogenous tissue and fracture fragments were flushed away at this time. Any soft tissue impingement was also freed from the fracture site. Manual reduction was now utilized to reduce the distal tibia fractures to the main body of the distal tibia, and a K-wire from the site was then inserted in a perpendicular fashion across the fracture site into the distal tibia with excellent reduction of the fractures noted intraoperatively with fluoroscopic guidance. Next, using standard AO principles and techniques, a Synthes 3.5 x 30 mm partially threaded cannulated screw was then inserted in its place across the fracture site with excellent compression achieved at this time. The K-wire was then removed. The surgical site was flushed with copious amounts of sterile normal saline solution. The periosteal tissues were reapproximated using 2-0 Vicryl, subcutaneous tissue reapproximated using 2-0 Vicryl with care taken to avoid the superficial and peroneal nerves and the skin edges were reapproximated using 4-0 Nylon sutures. It should be noted that stress views were taken of the ankle joint with the syndesmosis noted to be intact. At this time, the surgical site was dressed with Betadine-soaked Adaptic, 4 x 4 gauze, and Kerlix and well padded posterior splint with the patient's foot positioned at 90-degree in relation to the leg was then applied to the patient's right lower extremity. POSTOPERATIVE CONDITION: The patient tolerated the procedure and the anesthesia well with no apparent complications or complaints. The patient was escorted from the OR to recovery room with vital signs stable and neurovascular structures intact to the patient's right lower extremity. The patient will be monitored, and while in-house, the patient will follow up with Dr. Snow in the office following discharge. Charlotte Ratliff DPM Kvng Snow MD [facility] # [id number] [id number]
--- NOTE | 2018-05-03 09:22 | CP.PCM.PN ---
Subjective - Date & Time of Evaluation Date of Evaluation: 05/03/18 Time of Evaluation: 09:19 - Subjective Subjective: Podiatry progress note for Dr. Snow 62 y/o male patient seen and evaluated POD1 s/p right ankle ORIF. Patient was seen to be resting comfortably in bed. Patient reports he fell last night while coming out of the bathroom. Patient denies any complaints to the right lower extremity status post fall. Patient's splint is clean, dry and intact, and patient denies any other complaints at this time. Objective - Vital Signs/Intake and Output Vital Signs (last 24 hours): Temp Pulse Resp BP Pulse Ox 97.4 F L 90 20 125/80 96 05/03/18 08:15 05/03/18 08:15 05/03/18 08:15 05/03/18 08:15 05/03/18 08:15 - Medications Medications: Current Medications Acetaminophen (Tylenol 325mg Tab) 650 mg PO Q6 PRN PRN Reason: Pain, Mild (1-3) Acetaminophen/Codeine Phosphate (Tylenol/Codeine 300 Mg/30 Mg) 1 tab PO Q4 PRN PRN Reason: Pain, moderate (4-7) Acetaminophen/Codeine Phosphate (Tylenol/Codeine 300 Mg/30 Mg) 2 tab PO Q6 PRN PRN Reason: Pain, severe (8-10) Last Admin: 05/02/18 20:47 Dose: 2 tab Ascorbic Acid (Vitamin C 500 Mg Tab) 500 mg PO DAILY [facility] Last Admin: 05/02/18 08:39 Dose: Not Given Aspirin (Ecotrin) 81 mg PO BID [facility] Last Admin: 05/02/18 17:29 Dose: Not Given Diazepam (Valium) 10 mg PO BID [facility] Last Admin: 05/02/18 17:33 Dose: Not Given Duloxetine HCl (Cymbalta) 60 mg PO DAILY [facility] Last Admin: 05/02/18 08:39 Dose: Not Given Hydrochlorothiazide (Microzide) 12.5 mg PO DAILY [facility] Last Admin: 05/02/18 08:39 Dose: Not Given Hydromorphone HCl (Dilaudid) 0.5 mg IVP Q5M PRN PRN Reason: Pain, moderate (4-7) Sodium Chloride (Sodium Chloride 0.9%) 1,000 mls @ 0 mls/hr IV .Q0M [facility] Stop: 05/03/18 12:29 Last Admin: 05/02/18 21:47 Dose: 100 mls/hr Ketorolac Tromethamine (Toradol) 15 mg IVP Q6 PRN PRN Reason: Pain, moderate (4-7) Last Admin: 05/02/18 10:25 Dose: 15 mg Ketorolac Tromethamine (Toradol) 30 mg IVP ONCE PRN PRN Reason: Pain, moderate (4-7) Lisinopril (Zestril) 20 mg PO DAILY [facility] Last Admin: 05/02/18 08:39 Dose: Not Given Morphine Sulfate (Morphine) 4 mg IVP Q4 PRN PRN Reason: Pain, severe (8-10) Last Admin: 05/03/18 04:05 Dose: 4 mg Prazosin HCl (Minipress) 2 mg PO HS [facility] Last Admin: 05/02/18 21:48 Dose: 2 mg Tizanidine HCl (Zanaflex) 4 mg PO HS PRN PRN Reason: Muscle spasm Zolpidem Tartrate (Ambien) 5 mg PO HS [facility] Last Admin: 05/02/18 21:48 Dose: 5 mg - Labs Labs: 05/02/18 06:15 05/02/18 06:15 PT 11.7 Seconds (9.8-13.1) 05/01/18 19:51 INR 1.0 05/01/18 19:51 APTT 42.7 Seconds (25.6-37.1) H 05/01/18 19:51 - Constitutional Appears: Well, Non-toxic, No Acute Distress - Head Exam Head Exam: ATRAUMATIC, NORMOCEPHALIC - Extremities Exam Additional comments: Patient in splint C/D/I Sensation intact able to wiggle digits - Neurological Exam Neurological Exam: Alert, Awake, Oriented x3 - Psychiatric Exam Psychiatric exam: Normal Affect, Normal Mood Assessment and Plan - Assessment and Plan (Free Text) Assessment: 62 y/o male patient admitted for right ankle fracture, POD1 right ankle fracture ORIF Plan: Patient seen and evaluated at bedside Plan discussed with Dr. Snow Chart, labs and vitals reviewed- afebrile, absent leukocytosis Ordered Right Tib-Fib, Ankle and Foot X-rays- comminuted intra articular fracture of the lateral malleolus with displaced transverse fracture of the medial malleolus, no proximal fracture noted Ordered CT of the right leg, ankle and foot for surgical planning New X-rays post fall- no change, hardware intact Patient in a posterior splint at this time Patient to ice, elevate extremity Patient to remain non-weight bearing to the right Physical therapy recommendations appreciated on discharge plan Podiatry will continue to follow patient while in house
[2018-05-03 09:52] LABS: BASO % 0.2 % (0.0-2.0); EOS % 0.2 % (0.0-4.0); HEMOGLOBIN 9.8 g/dL (12.0-18.0); LYMPH # 1.2 K/uL (1.0-4.3); LYMPH % 18.6 % (20.0-40.0); MEAN CELL VOLUME 96.7 fl (80.0-94.0); MEAN CORPUSCULAR HEMOGLOBIN 32.5 pg (27.0-31.0); MEAN CORPUSCULAR HGB CONC 33.6 g/dL (33.0-37.0); MEAN PLATELET VOLUME 9.3 fl (7.2-11.7); MONO # 0.5 K/uL (0.0-0.8); MONO % 7.3 % (0.0-10.0); NEUT # 4.8 K/uL (1.8-7.0); NEUT % 73.7 % (50.0-75.0); NRBC % 0.1 % (0.0-0.0); RBC 3.03 Mil/uL (4.40-5.90); RED CELL DISTRIBUTION WIDTH 15.1 % (11.5-14.5)
[2018-05-03 09:55] LABS: WHITE BLOOD COUNT 6.5 K/uL (4.8-10.8)
[2018-05-03 10:05] LABS: ALB/GLOB RATIO 1.1 (1.0-2.1); ALBUMIN 3.4 g/dL (3.5-5.0); ALT/SGPT 61 U/L (21-72); AST/SGOT 55 U/L (17-59); BLOOD UREA NITROGEN 14 mg/dl (9-20); CALCIUM 8.6 mg/dL (8.4-10.2); GFR NON-AFRICAN AMERICAN > 60
--- NOTE | 2018-05-03 11:57 | PQF ---
PROVIDER RESPONSE TEXT: Blood loss, will monitor REVIEWER QUERY TEXT: Anemia Type Hx. of Anemia is documented in the Medical Record. Please specify the cause (includes suspected or p robable cause) versus hx. only and not a currently treated condition Such as: -- Due to acute blood loss -- Due to chronic blood loss -- Due to iron deficiency -- Due to postoperative blood loss -- Due to chronic disease -- Other, please specify H/H: 12.5/37.3->10.9/32.8->9.8/29.3 ER and H and P and consult notes include: Hx. Anemia 05/02 Surgical Post-Op includes: Operation Performed: Right medial malleolus ORIF and distal tibia ORIF EBL {In ML}: 5 The patient's Clinical Indicators include: -- Query created by: Jolie Roman on 05/03/2018 11:47 AM Electronically signed by: Christofer Deleon APN 05/03/2018 11:54 AM
[2018-05-03] MEDS: HCTZ/Losartan 12.5/50 Tab PO SCH (13:09)
--- NOTE | 2018-05-03 13:39 | RAD ---
Date of service: 05/02/2018 PROCEDURE: Fluoroscopy up to 1 hr. HISTORY: RIGHT ANKLE COMPARISON: None TECHNIQUE: Standard protocol for this study/examination. FINDINGS: Total fluoroscopic time (continuous mode) utilized during the procedure 79.3 seconds. Total exam DLP: 1.66 (mGy). IMPRESSION: Submitted images from the current procedure: 5.0
[2018-05-03] MEDS: Oxycodone/Acetaminophen 5/325 mg Tab PO PRN ×2 (16:22→22:18)
[2018-05-03] MEDS: Acetaminophen-Codeine 300/30 mg Tab PO PRN (19:56)
[2018-05-04] MEDS: Morphine 5 MG/ML SYRINGE IVP PRN (04:01)
[2018-05-04 06:40] LABS: BASO % 0.6 % (0.0-2.0); EOS # 0.3 K/uL (0.0-0.7); EOS % 4.9 % (0.0-4.0); HEMOGLOBIN 10.5 g/dL (12.0-18.0); LYMPH # 2.2 K/uL (1.0-4.3); LYMPH % 39.1 % (20.0-40.0); MEAN CELL VOLUME 97.7 fl (80.0-94.0); MEAN CORPUSCULAR HEMOGLOBIN 32.3 pg (27.0-31.0); MEAN PLATELET VOLUME 9.1 fl (7.2-11.7); MONO # 0.8 K/uL (0.0-0.8); NEUT # 2.3 K/uL (1.8-7.0); NEUT % 41.4 % (50.0-75.0); NRBC % 0.1 % (0.0-0.0); RBC 3.24 Mil/uL (4.40-5.90); RED CELL DISTRIBUTION WIDTH 15.1 % (11.5-14.5); WHITE BLOOD COUNT 5.6 K/uL (4.8-10.8)
[2018-05-04 06:46] LABS: IRON 36 ug/dL (49-181)
[2018-05-04 06:55] LABS: % IRON SATURATION 10 % (20-55); TOTAL IRON BINDING CAPACITY 353 ug/dL (250-450)
[2018-05-04 07:01] LABS: ALB/GLOB RATIO 1.1 (1.0-2.1); ALBUMIN 3.4 g/dL (3.5-5.0); ALT/SGPT 60 U/L (21-72); AST/SGOT 37 U/L (17-59); BLOOD UREA NITROGEN 18 mg/dl (9-20); CALCIUM 8.6 mg/dL (8.4-10.2); GFR NON-AFRICAN AMERICAN > 60
[2018-05-04 08:34] VITALS: BP 134/83; PULSE 76; RESP 20; TEMP 97.6; O2SAT 95
[2018-05-04] MEDS: Oxycodone/Acetaminophen 5/325 mg Tab PO PRN (08:48)
[2018-05-04] MEDS: HCTZ/Losartan 12.5/50 Tab PO SCH (09:05)
--- NOTE | 2018-05-04 21:04 | PQF ---
PROVIDER RESPONSE TEXT: Acute blood loss REVIEWER QUERY TEXT: Anemia Type Blood Loss Anemia is documented in the Medical Record. Please specify the type: Such as: -- Due to acute blood loss -- Due to chronic blood loss -- Due to postoperative blood loss H/H: 12.5/37.3->10.9/32.8->9.8/29.3->10.5/31.6 Iron:36 TIBC:353 % saturation:10 ISigned: Op note: .Displaced fracture of medial malleolus, rt. ankle. 2.Displaced fracture of distal tibial plafond, rt. ankle. POSTOP Dxs: 1.Displaced fracture of medial malleolus, rt. ankle. 2.Displaced fracture of distal tibial plafond, rt. ankle. NAME OF PROCEDURES: 1.ORIF of displaced medial malleolar fracture with screw fixation rt. ankle. 2.Open reduction with internal fixation of displaced distal tibial plafond fracture, rt. ankle with s crew fixation. The patient's Clinical Indicators include: --- Query created by: Jolie Roman on 05/04/2018 10:49 AM Electronically signed by: Christofer Deleon APN 05/04/2018 9:01 PM
--- NOTE | 2018-05-04 21:08 | CP.PCM.DIS ---
Provider - Provider Date of Admission: 05/01/18 15:09 Attending physician: Jay Arzola MD Consults: 05/01/18 19:51 Podiatry Consult Routine Comment: Consulting Provider: Kvng Snow Consulting Physician: Kvng Snow Reason for Consult: malleolar fracture Time Spent in preparation of Discharge (in minutes): 15 Diagnosis - Discharge Diagnosis (1) DVT prophylaxis Status: Acute (2) Ankle fracture Status: Acute Hospital Course - Lab Results Lab Results: Most Recent Lab Values WBC 5.6 K/uL (4.8-10.8) 05/04/18 06:21 RBC 3.24 Mil/uL (4.40-5.90) L 05/04/18 06:21 Hgb 10.5 g/dL (12.0-18.0) L 05/04/18 06:21 Hct 31.6 % (35.0-51.0) L 05/04/18 06:21 MCV 97.7 fl (80.0-94.0) H 05/04/18 06:21 MCH 32.3 pg (27.0-31.0) H 05/04/18 06:21 MCHC 33.0 g/dL (33.0-37.0) 05/04/18 06:21 RDW 15.1 % (11.5-14.5) H 05/04/18 06:21 Plt Count 181 K/uL (130-400) 05/04/18 06:21 MPV 9.1 fl (7.2-11.7) 05/04/18 06:21 Neut % (Auto) 41.4 % (50.0-75.0) L 05/04/18 06:21 Lymph % (Auto) 39.1 % (20.0-40.0) 05/04/18 06:21 [place] % (Auto) 14.0 % (0.0-10.0) H 05/04/18 06:21 Eos % (Auto) 4.9 % (0.0-4.0) H 05/04/18 06:21 Baso % (Auto) 0.6 % (0.0-2.0) 05/04/18 06:21 Neut # (Auto) 2.3 K/uL (1.8-7.0) 05/04/18 06:21 Lymph # (Auto) 2.2 K/uL (1.0-4.3) 05/04/18 06:21 [place] # (Auto) 0.8 K/uL (0.0-0.8) 05/04/18 06:21 Eos # (Auto) 0.3 K/uL (0.0-0.7) 05/04/18 06:21 Baso # (Auto) 0.0 K/uL (0.0-0.2) 05/04/18 06:21 PT 11.7 Seconds (9.8-13.1) 05/01/18 19:51 INR 1.0 05/01/18 19:51 APTT 42.7 Seconds (25.6-37.1) H 05/01/18 19:51 Sodium 138 mmol/l (132-148) 05/04/18 06:21 Potassium 4.0 MMOL/L (3.6-5.0) 05/04/18 06:21 Chloride 102 mmol/L (98-107) 05/04/18 06:21 Carbon Dioxide 26 mmol/L (22-30) 05/04/18 06:21 Anion Gap 14 (10-20) 05/04/18 06:21 BUN 18 mg/dl (9-20) 05/04/18 06:21 Creatinine 0.7 mg/dl (0.8-1.5) L 05/04/18 06:21 Est GFR ( Amer) > 60 05/04/18 06:21 Est GFR (Non-Af Amer) > 60 05/04/18 06:21 Random Glucose 105 mg/dL (75-110) 05/04/18 06:21 Calcium 8.6 mg/dL (8.4-10.2) 05/04/18 06:21 Phosphorus 4.7 mg/dl (2.5-4.5) H 05/04/18 06:21 Magnesium 1.9 MG/DL (1.6-2.3) 05/04/18 06:21 Iron 36 ug/dL (49-181) L 05/04/18 06:21 TIBC 353 ug/dL (250-450) 05/04/18 06:21 % Saturation 10 % (20-55) L 05/04/18 06:21 Transferrin 256.76 mg/dL (206-381) 05/04/18 06:21 Ferritin 127.0 ng/Ml (17.9-464) 05/04/18 06:21 Total Bilirubin 0.2 mg/dl (0.2-1.3) 05/04/18 06:21 AST 37 U/L (17-59) 05/04/18 06:21 ALT 60 U/L (21-72) 05/04/18 06:21 Alkaline Phosphatase 165 U/L (38-126) H 05/04/18 06:21 Total Protein 6.5 G/DL (6.3-8.2) 05/04/18 06:21 Albumin 3.4 g/dL (3.5-5.0) L 05/04/18 06:21 Globulin 3.2 gm/dL (2.2-3.9) 05/04/18 06:21 Albumin/Globulin Ratio 1.1 (1.0-2.1) 05/04/18 06:21 - Hospital Course Hospital Course: or, podiatry pain controlled. Discharge Exam - Head Exam Head Exam: ATRAUMATIC, NORMAL INSPECTION, NORMOCEPHALIC - Eye Exam Eye Exam: EOMI, Normal appearance, PERRL Pupil Exam: NORMAL ACCOMODATION, PERRL - Respiratory Exam Respiratory Exam: Clear to PA & Lateral, NORMAL BREATHING PATTERN, UNREMARKABLE - Cardiovascular Exam Cardiovascular Exam: REGULAR RHYTHM, RRR, +S1, +S2 - GI/Abdominal Exam GI & Abdominal Exam: Normal Bowel Sounds, Soft, Unremarkable - Extremities Exam Extremities exam: full ROM, normal capillary refill, pedal edema, pedal pulses present - Back Exam Back exam: NORMAL INSPECTION - Neurological Exam Neurological exam: Alert, CN II-XII Intact, Normal Gait, Oriented x3, Reflexes Normal - Psychiatric Exam Psychiatric exam: Normal Affect, Normal Mood - Skin Skin Exam: Dry, Intact, Normal Color, Warm Discharge Plan - Follow Up Plan Condition: FAIR Disposition: REHAB FACILITY/REHAB UNIT Instructions: Open Reduction and Internal Fixation Surgery (DC) Additional Instructions: Non-weight bearing to R lower extremity dc to jhonny final dx-r randy fx f/u rmg upon dc. rted prn. meds per med rec doing well. nod sitres.s distal pms intact. pain controlled
== END 2018-05-04 11:25 | DRG 493 ==
LOC: H.ER 10:23 → H.ERHOLD 15:09 → H.MEDSURG1 18:48
PROVIDERS: ADMIT Family Medicine; ATTEND Family Medicine
PROC: 0QSG04Z Reposition Right Tibia with Internal Fixation Device, Open Approach (ICD-10-PCS; principal; 2018-05-02 12:30)
PROC: F07Z9FZ Gait Training/Functional Ambulation Treatment using Assistive, Adaptive, Supportive or Protective Equipment (ICD-10-PCS; 2018-05-03)
DX: S82.871A Displaced pilon fracture of right tibia, initial encounter for closed fracture (principal); D62 Acute posthemorrhagic anemia; S93.411A Sprain of calcaneofibular ligament of right ankle, initial encounter; I10 Essential (primary) hypertension; F43.10 Post-traumatic stress disorder, unspecified; M19.042 Primary osteoarthritis, left hand; M19.041 Primary osteoarthritis, right hand; G89.29 Other chronic pain; M54.2 Cervicalgia; F41.9 Anxiety disorder, unspecified; F10.10 Alcohol abuse, uncomplicated; V81.89XA Occupant of railway train or railway vehicle injured due to other specified railway accident, initial encounter; Z87.891 Personal history of nicotine dependence; Y92.522 Railway station as the place of occurrence of the external cause

== ENCOUNTER 2018-05-21 14:16 | Emergency (ER) | payer MEDICARE, OTHER ==
[2018-05-21 14:16] VITALS: BMI 25.0
[2018-05-21 14:51] VITALS: RESP 20; O2SAT 100
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
[2018-05-21 19:23] VITALS: BP 114/62; PULSE 98; TEMP 97.6
== END 2018-05-21 19:20 | disposition home or self-care (01) ==
LOC: H.ER 14:16
DX: F43.10 Post-traumatic stress disorder, unspecified (principal); I10 Essential (primary) hypertension; G89.29 Other chronic pain; Z79.899 Other long term (current) drug therapy; Z86.59 Personal history of other mental and behavioral disorders

== ENCOUNTER 2018-05-24 22:14 | Inpatient (IN) | payer MEDICARE, OTHER ==
[2018-05-24 22:14] VITALS: BMI 25.0
[2018-05-25] MEDS ORDERED: Naloxone 0.4 mg/ml Inj (Adult) IVP STA ×2 (01:05→01:44)
[2018-05-25] MEDS ORDERED: Naloxone 0.4 mg/ml Inj (Adult) ONE ×2 (01:07→01:51)
[2018-05-25] MEDS ORDERED: Sodium Chloride 0.9% 1,000 ML IV STA (01:08)
--- NOTE | 2018-05-25 01:44 | ED PDOC ---
Lower Extremity Pain/Injury Time Seen by Provider: 05/25/18 00:50 Chief Complaint (Nursing): Lower Extremity Problem/Injury Chief Complaint (Provider): Lower Extremity Problem/Injury History Per: Patient History/Exam Limitations: no limitations Onset/Duration Of Symptoms: Days (x 3) Current Symptoms Are (Timing): Still Present Additional Complaint(s): 62 year old male with a history of anemia, anxiety, arthritis, chronic pain and substance abuse presents to the ED for evaluation of persistent right foot pain. He reports that he had surgery at this hospital by podiatry and was discharged. Patient was in rehab at [facility] for the past 1.5 week, and was supposed to go to subacute rehab but signed out AMA due to delays in transfer and stating he needed to take care of his dying father. Patient presents here stating he realized he was unable to take care of self due to his disability, was unable to get in and out of his home. He reports that he took " a bunch" of Tylenol with codeine pills tonight and is now complaining of gen weakness, lethargy. PMD: none provided Past Medical History Reviewed: Historical Data, Nursing Documentation, Vital Signs Vital Signs: Last Vital Signs Temp 97.4 F L 05/24/18 23:42 Pulse 77 05/25/18 01:12 Resp 16 05/25/18 01:12 BP 111/50 L 05/25/18 01:12 Pulse Ox 96 05/25/18 01:12 - Medical History PMH: Anemia, Anxiety, Arthritis, Back Problems, Depression, Fractures, HTN, Post Traumatic Stress Disorder, Chronic Pain (neck) Denies: Chronic Kidney Disease - Surgical History Surgical History: Appendectomy, Back Surgery, Cholecystectomy, Hernia Repair - Family History Family History: States: Unknown Family Hx - Immunization History Hx Tetanus Toxoid Vaccination: Yes Hx Influenza Vaccination: No Hx Pneumococcal Vaccination: No - Home Medications Home Medications: Ambulatory Orders Medication Instructions Recorded Prazosin HCl [Minipress] 2 mg PO HS 02/06/18 DULoxetine [Cymbalta] 60 mg PO DAILY 02/20/18 diaZEpam [Valium] 10 mg PO BID 02/20/18 Benazepril/Hydrochlorothiazide 1 tab PO DAILY 05/01/18 [Benazepril-Hctz 20-12.5 mg Tab] Zolpidem [Ambien] 10 mg PO HS PRN 05/01/18 tiZANidine [Zanaflex] 4 mg PO HS PRN 05/01/18 Oxycodone HCl/Acetaminophen 1 each PO Q6 #16 tablet 05/21/18 [Percocet 10-325 mg Tablet] - Allergies Allergies/Adverse Reactions: Allergies Allergy/AdvReac Type Severity Reaction Status Date / Time No Known Allergies Allergy Verified 05/24/18 23:42 Review of Systems ROS Statement: Except As Marked, All Systems Reviewed And Found Negative Constitutional: Positive for: Other (lethargic) Musculoskeletal: Positive for: Foot Pain (right s/p surgery) Physical Exam - Reviewed Nursing Documentation Reviewed: Yes Vital Signs Reviewed: Yes - Physical Exam Appears: Positive for: Non-toxic, No Acute Distress Head Exam: Positive for: ATRAUMATIC, NORMAL INSPECTION, NORMOCEPHALIC Skin: Positive for: Normal Color, Warm, Dry Eye Exam: Positive for: EOMI, Normal appearance, PERRL Neck: Positive for: Normal, Painless ROM, Supple Cardiovascular/Chest: Positive for: Regular Rate, Rhythm. Negative for: Murmur Respiratory: Positive for: Normal Breath Sounds. Negative for: Respiratory Distress Gastrointestinal/Abdominal: Positive for: Normal Exam, Soft. Negative for: Tenderness Back: Positive for: Normal Inspection. Negative for: L CVA Tenderness, R CVA Tenderness Extremity: Positive for: Normal ROM (x 4). Negative for: Deformity Neurological/Psych: Positive for: Awake, Alert, Normal Tone. Negative for: Motor/Sensory Deficits - Laboratory Results Result Diagrams: 05/25/18 00:30 05/25/18 06:15 - ECG O2 Sat by Pulse Oximetry: 96 (RA) Pulse Ox Interpretation: Normal Medical Decision Making Medical Decision Makin:08 Impression: rule out sepsis Initial Plan: --VBG --CMP --Narcan 0.4 mg IVP --NS IV 1,000 mls --Blood cx --Urine cx --UA 01:44 pt confused, will rule out intracranial bleed, electrolyte abnormality, and possible overdose Patient's blood pressure improved after Narcan. However, it is dificult to get an accurate 02 sat. There are no changes in mental status awake and alert but somnolent. ordered abg Poison control was called; Advised to not use Flumazenil at this time, just supportive measures --ABG --Narcan 0.4 mg IVP --D Dimer 02:[address] Varela, assistant pressman and will be admitted under medical service Dr. Johnson. Labs reveal markedly elevated BUN of 85 and creatinine of 4.4. Patient is in acute renal failure, bertrand ordered. He will be admitted. 04:38 CT Abd & Pelvis COMPARISON: 12/13/2017. TECHNIQUE: Axial and reformatted sagittal and coronal images of the brain obtained without IV contrast administration. Normal size of the ventricles and extra-axial spaces for the patient's age. Normal white matter tracts of the supratentorial brain. Normal basal ganglia and thalami. Normal brainstem. Normal cerebellum. There is no demonstrated extra-axial, intraparenchymal, or intraventricular hemorrhage. There are no findings of an acute ischemic infarction. Normal calvarium. There is no demonstrated fracture. Normal soft tissue structures. Normal visualized paranasal sinuses. IMPRESSION: Normal unenhanced CT scan of the brain. pt bp borderline, given iv fluids. pt aware of plan, agreeable to it 440 am pt resting comfortably in no distress Scribe Attestation: Documented by Angie Damon acting as a scribe for Juan Villela MD. Provider Scribe Attestation: All medical record entries made by the Scribe were at my direction and personally dictated by me. I have reviewed the chart and agree that the record accurately reflects my personal performance of the history, physical exam, medical decision making, and the department course for this patient. I have also personally directed, reviewed, and agree with the discharge instructions and disposition. Disposition - Clinical Impression Clinical Impression: Alcohol abuse, Altered mental status - Patient ED Disposition Is Patient to be Admitted: Yes - Disposition Disposition Time: 04:00 Condition: SERIOUS
[2018-05-25 01:53] LABS: BASO % 0.5 % (0.0-2.0); EOS # 0.1 K/uL (0.0-0.7); HEMOGLOBIN 10.4 g/dL (12.0-18.0); LYMPH % 31.6 % (20.0-40.0); MEAN CELL VOLUME 94.6 fl (80.0-94.0); MEAN CORPUSCULAR HEMOGLOBIN 31.8 pg (27.0-31.0); MEAN CORPUSCULAR HGB CONC 33.6 g/dL (33.0-37.0); MEAN PLATELET VOLUME 9.5 fl (7.2-11.7); MONO # 1.2 K/uL (0.0-0.8); MONO % 18.9 % (0.0-10.0); NRBC % 0.1 % (0.0-0.0); RBC 3.25 Mil/uL (4.40-5.90); RED CELL DISTRIBUTION WIDTH 14.1 % (11.5-14.5); WHITE BLOOD COUNT 6.2 K/uL (4.8-10.8)
[2018-05-25 01:58] LABS: ABG ALLEN TEST YES; ARTERIAL BLOOD GAS HCO3 17.4 mmol/L (21-28); ARTERIAL BLOOD GAS O2 SAT 97.8 % (95-98); ARTERIAL BLOOD GAS PCO2 33 mm/Hg (35-45); ARTERIAL BLOOD GAS PH 7.29 (7.35-7.45); ARTERIAL BLOOD GAS PO2 84 mm/Hg (80-100); ARTERIAL BLOOD GAS TCO2 16.9 mmol/L (22-28)
[2018-05-25 02:11] LABS: ALB/GLOB RATIO 1.1 (1.0-2.1); ALBUMIN 3.8 g/dL (3.5-5.0); ALT/SGPT 186 U/L (21-72); AST/SGOT 349 U/L (17-59); BLOOD UREA NITROGEN 85 mg/dl (9-20); CALCIUM 9.1 mg/dL (8.4-10.2); GFR NON-AFRICAN AMERICAN 14
--- NOTE | 2018-05-25 02:45 | CP.PCM.CON ---
History of Present Illness - History of Present Illness History of Present Illness: Attending: Dr Johnson PMD: None Truck Jumper: Dr Snow Reason for Consult: Critical care management Chief Complaint: Persistent right ankle pain/AMS The Patient was seen and examined in the ED HPI: The hx is obtained from the laboratory, radiological and medical records as the patient appears to be in a drunken state and is a poor historian. This is a 62 years old male with hx of chronic neck and back pain, Alcohol abuse, PTSD who was last admitted on 05/01/18 with right ankle fracture and discharged to [facility] on 05/04/18 after ORIF. From there he signed AMA. On 05/21/18 he was prescribed Percocet for Pain. He now comes with 3 days of worsening pain to the right ankle and in the ED he was found to be in an altered mental state. He did state that he took a bunch of Tylenol with Codeine pills tonight. He is moving all extremi ties but is paralysed at the left forehead and left side of face. In the ED There was new elevation of BUN, Creatinine, AST and ALT from 05/04/18 and his Blood pressure was 73/33mmHg the lowest, increasing but not maintaining with IV Fluids. PMH: Anemia, Anxiety and Depression; Arthritis, Back Problems; Fractures, HTN, Post Traumatic Stress Disorder, Chronic Pain (neck) PSH: Appendectomy, Back Surgery, Cholecystectomy, Hernia Repair. ORIF of the right ankle 04/30/18 SH: Live alone; No smoking; Alcohol occasionally FH: States: No known family hx Allergies: NKDA Medication: Reviewed Review of Systems - Review of Systems Systems not reviewed;Unavailable: Altered Mental Status Review of Systems: Review of system is limited because of a lethargy and altered mental status. Past Patient History - Infectious Disease Hx of Infectious Diseases: None - Past Medical History & Family History Past Medical History?: Yes - Past Social History Smoking Status: Never Smoked Chewing Tobacco Use: No Cigar Use: No Alcohol: Occasional Home Situation {Lives}: Alone - CARDIAC Hx Hypertension: Yes - PULMONARY Hx Respiratory Disorders: No - NEUROLOGICAL Hx Neurological Disorder: No - HEENT Hx HEENT Problems: No - RENAL Hx Chronic Kidney Disease: No - ENDOCRINE/METABOLIC Hx Endocrine Disorders: No - HEMATOLOGICAL/ONCOLOGICAL Hx Anemia: Yes - INTEGUMENTARY Hx Dermatological Problems: No - MUSCULOSKELETAL/RHEUMATOLOGICAL Hx Arthritis: Yes Hx Fractures: Yes Other/Comment: Chronic neck pain - GASTROINTESTINAL Hx Gastrointestinal Disorders: No - GENITOURINARY/GYNECOLOGICAL Hx Genitourinary Disorders: No - PSYCHIATRIC Hx Anxiety: Yes Hx Depression: Yes Hx Post Traumatic Stress Disorder: Yes - SURGICAL HISTORY Hx Appendectomy: Yes Hx Cholecystectomy: Yes Hx Herniorrhaphy: Yes Other/Comment: Back surgery - ANESTHESIA Hx Anesthesia: Yes Hx Anesthesia Reactions: No Hx Malignant Hyperthermia: No Meds Allergies/Adverse Reactions: Allergies Allergy/AdvReac Type Severity Reaction Status Date / Time No Known Allergies Allergy Verified 05/24/18 23:42 - Medications Medications: Current Medications Sodium Chloride (Sodium Chloride 0.9%) 2,000 mls @ 1,000 mls/hr IV .Q2H DAPHNE Stop: 05/26/18 02:43 Physical Exam - Constitutional Appears: Confused - Head Exam Head Exam: ATRAUMATIC, NORMOCEPHALIC - Eye Exam Eye Exam: EOMI Pupil Exam: NORMAL ACCOMODATION - ENT Exam ENT Exam: Mucous Membranes Dry, Normal External Ear Exam - Neck Exam Neck exam: Negative for: Lymphadenopathy, Tenderness Additional comments: Range of motion limited because of chronic neck pain. - Respiratory Exam Respiratory Exam: Clear to Auscultation Bilateral. absent: Rales, Rhonchi, Wheezes - Cardiovascular Exam Cardiovascular Exam: REGULAR RHYTHM, +S1, +S2, +S4. absent: Gallop, JVD - GI/Abdominal Exam GI & Abdominal Exam: Normal Bowel Sounds, Soft. absent: Mass, Organomegaly, Tenderness - Rectal Exam Rectal Exam: Deferred - Extremities Exam Additional comments: Both ankles with dressing. The right side with post surgical dressing. - Back Exam Back exam: NORMAL INSPECTION. absent: CVA tenderness (L), CVA tenderness (R) - Neurological Exam Additional comments: Lethargic, arousable, clear speech, Poor memory with confusion in answering to questions. Left forehead muscle weakness. Moving all extremities with motor strength 5/5 at both upper and lower extremities. - Psychiatric Exam Additional comments: Restless - Skin Skin Exam: Dry, Intact, Normal Color, Warm Results - Vital Signs Recent Vital Signs: Last Vital Signs Temp 97.4 F L 05/24/18 23:42 Pulse 77 05/25/18 01:12 Resp 16 05/25/18 01:12 BP 111/50 L 05/25/18 01:12 Pulse Ox 96 05/25/18 02:29 - Labs Result Diagrams: 05/25/18 00:30 05/25/18 00:30 Labs: Laboratory Results - last 24 hr 05/25/18 05/25/18 05/25/18 00:30 00:30 01:03 WBC 6.2 RBC 3.25 L Hgb 10.4 L Hct 30.8 L MCV 94.6 H D MCH 31.8 H MCHC 33.6 RDW 14.1 Plt Count 199 MPV 9.5 Neut % (Auto) 48.0 L Lymph % (Auto) 31.6 P[place] % (Auto) 18.9 H Eos % (Auto) 1.0 Baso % (Auto) 0.5 Neut # (Auto) 3.0 Lymph # (Auto) 2.0 P[place]leton # (Auto) 1.2 H Eos # (Auto) 0.1 Baso # (Auto) 0.0 D-Dimer, Quantitative pCO2 pO2 HCO3 ABG pH ABG Total CO2 ABG O2 Saturation ABG Base Excess Dane Test ABG Potassium A-a O2 Difference Glucose Lactate FiO2 Sodium 133 Potassium 4.3 Chloride 98 Carbon Dioxide 19 L Anion Gap 20 BUN 85 H Creatinine 4.4 H Est GFR ( Amer) 17 Est GFR (Non-Af Amer) 14 POC Glucose (mg/dL) 114 H Random Glucose 113 H Calcium 9.1 Total Bilirubin 0.4 AST 349 H D ALT 186 H D Alkaline Phosphatase 116 Total Protein 7.3 Albumin 3.8 Globulin 3.5 Albumin/Globulin Ratio 1.1 Arterial Blood Potassium Alcohol, Quantitative < 10 05/25/18 05/25/18 01:52 02:11 WBC RBC Hgb Hct MCV MCH MCHC RDW Plt Count MPV Neut % (Auto) Lymph % (Auto) Pend[place] % (Auto) Eos % (Auto) Baso % (Auto) Neut # (Auto) Lymph # (Auto) Pend[place] # (Auto) Eos # (Auto) Baso # (Auto) D-Dimer, Quantitative 932 H pCO2 33 L pO2 84 HCO3 17.4 L ABG pH 7.29 L ABG Total CO2 16.9 L ABG O2 Saturation 97.8 ABG Base Excess -9.6 L Dane Test Yes ABG Potassium 3.7 A-a O2 Difference 74.0 Glucose 115 H Lactate 0.8 FiO2 28.0 Sodium 131.0 L Potassium Chloride 103.0 Carbon Dioxide Anion Gap BUN Creatinine Est GFR ( Amer) Est GFR (Non-Af Amer) POC Glucose (mg/dL) Random Glucose Calcium Total Bilirubin AST ALT Alkaline Phosphatase Total Protein Albumin Globulin Albumin/Globulin Ratio Arterial Blood Potassium 3.7 Alcohol, Quantitative - Imaging and Cardiology Chest x-ray Status: Image reviewed by me Additional comment: Chronic changes. No acute infiltrate CT scan - head Status: Image reviewed by me, Report reviewed by me Additional comment: Normal CT of Brain Assessment & Plan - Assessment and Plan (Free Text) Assessment: #. AMS #. Hypotension #. Dehydration #. Acute Kidney Injury #. Non anion gap Metabolic acidosis #. Transaminitis #. Iron Deficiency Anemia with possible Folic Acid Deficiency #. 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 Fx of right ankle s/p ORIF #. Depression Plan: 62 years old male with hx Alcohol abuse,who was last admitted on 05/01/18 with right ankle fracture and discharged 05/04/18 after ORIF.He now comes with 3 days of worsening pain to the right ankle and in the ED he was found to be in an altered mental state. He did state that he took a bunch of Tylenol with Codeine pills. He was noted to be paralysed at the left forehead and left side of face. #. AMS secondary to Metabolic encephalopathy of Uremia - Admit to ICU - Treat Dehydration #. Hypotension secondary to dehydration and probably Oxycodone in the Percocet - IV Fluids. 1liter given by ED. Will give 2Liters bolus and continue with Normal saline at 150mls/hr - Monitor Blood Pressure in ICU #. Dehydration secondary to poor intake - IV fluid resuscitation #. Acute Kidney Injury pre renal - Consult Nephrology Dr Shankar - IV Fluids - Follow Renal labs #. Non anion gap Metabolic acidosis. etiology unclear but probably Renal tubular acidosis - Urine electrolytes #. Transaminitis initial Acetaminophen was flat, so doubt this as cause. Most probably caused by dehydration and Medication (Zanaflex?) - IV Fluids - Follow up LFT #. Iron Deficiency Anemia with possible Folic Acid Deficiency - Folic Acid and B12 levels - Will need Iron supplement - Follow Hb #. 7th Nerve Palsy r/o CVA. unclear if new - Consult Neurology Dr Marsh - CT Head: No Abnormality noted - Neuro checks - Swallow eval #. Fx of right ankle s/p ORIF - PT/OT #. Depression - Hold medication until hemodynamically stable - Heparin Sub Q #. DVT Prophylaxis with SCD #. Code Status: Full Giovanny Varela MD - Date & Time Date: 05/25/18 Time: 02:44
[2018-05-25] MEDS: Sodium Chloride 0.9% 2,000 ML IV SCH ×2 (02:46→05:30)
[2018-05-25 03:12] LABS: ACETAMINOPHEN < 10.0 ug/ml (10.0-30.0); SALICYLATE < 1.0 mg/dl
[2018-05-25 05:05] LABS: OPIATES, UR NEGATIVE (NEGATIVE)
[2018-05-25 05:30] LABS: BARBITURATES, UR NEGATIVE (NEGATIVE); BENZODIAZEPINES, UR POSITIVE (NEGATIVE); PHENCYCLIDINE, UR NEGATIVE (NEGATIVE)
[2018-05-25 06:41] LABS: INR 1.1; PROTHROMBIN TIME 12.1 Seconds (9.8-13.1)
[2018-05-25 06:44] LABS: CALCIUM 8.3 mg/dL (8.4-10.2); PARTIAL THROMBOPLASTIN TIME 36.9 Seconds (25.6-37.1)
[2018-05-25 06:54] LABS: TROPONIN I 0.017 ng/mL (0.00-0.120)
[2018-05-25] MEDS ORDERED: Sodium Chloride 0.9% 1,000 ML IV SCH (07:30)
[2018-05-25] MEDS ORDERED: Hydrocortisone- 100 MG in Sodium Chloride 0.9% 100 ML IV SCH (07:30)
[2018-05-25] MEDS ORDERED: ACETYLCYSTEINE IVPB ONE ×4 (08:22→14:30)
[2018-05-25] MEDS ORDERED: DEXTROSE 5% IVPB ONE ×4 (08:22→14:30)
[2018-05-25] MEDS ORDERED: WATER IVPB ONE ×4 (08:22→14:30)
[2018-05-25] MEDS: Sodium Chloride 0.9% 1,000 ML IV SCH (08:23)
--- NOTE | 2018-05-25 09:01 | CARD ---
APPROVED REPORT Date of service: 05/25/2018 EKG Measurement Heart [id number] <Conclusion> Normal sinus rhythm Normal ECG
--- NOTE | 2018-05-25 09:35 | RAD ---
Date of service: 05/25/2018 HISTORY: rule out noncardiogenic pulmonary edema COMPARISON: Portable chest 05/01/2018. FINDINGS: LUNGS: Crowding of the bronchovascular markings is over infiltrate at the medial left base. Clinically correlate further. Stable linear atelectasis or fibrosis is noted at at the left base as well. No right-sided infiltrate appreciable. PLEURA: No significant pleural effusion identified, no pneumothorax apparent. CARDIOVASCULAR: Calcific atherosclerotic changes are seen related to the thoracic aorta. Normal cardiac size. No pulmonary vascular congestion. OSSEOUS STRUCTURES: Prior inferior cervical spinal fusion hardware reiterated. VISUALIZED UPPER ABDOMEN: Normal. OTHER FINDINGS: None. IMPRESSION: No definite pulmonary edema appreciable. Crowding of the bronchovascular markings is favored over limited left infrahilar infiltrate. Clinically correlate. Linear atelectasis or fibrosis unchanged left base.
--- NOTE | 2018-05-25 10:22 | CP.PCM.CON ---
History of Present Illness - History of Present Illness History of Present Illness: Neurology Consultation Note: Consult requested by Dr. Johnson The patient is a 62-year-old man with a past medical history of chronic neck and back pain, alcohol abuse, PTSD who was last admitted on 05/01/18 with right ankle fracture and discharged to [facility] on 05/04/18 after ORIF, and signed out AMA. He presented to the ED yesterday with lethargy, confusion, and was intoxicated. Admitted to taking codeine, Tylenol and was recently prescribed Percocet. Labs showed acute renal failure, elevated liver enzymes. CT scan of the head was normal. Neurology was consulted essentially for altered mental status and slurred speech. The patient is a poor historian. Review of Systems - Review of Systems Systems not reviewed;Unavailable: Altered Mental Status Past Patient History - Infectious Disease Hx of Infectious Diseases: None - Past Medical History & Family History Past Medical History?: Yes - Past Social History Smoking Status: Never Smoked Chewing Tobacco Use: No Cigar Use: No Alcohol: Occasional Home Situation {Lives}: Alone - CARDIAC Hx Hypertension: Yes - PULMONARY Hx Respiratory Disorders: No - NEUROLOGICAL Hx Neurological Disorder: No - HEENT Hx HEENT Problems: No - RENAL Hx Chronic Kidney Disease: No - ENDOCRINE/METABOLIC Hx Endocrine Disorders: No - HEMATOLOGICAL/ONCOLOGICAL Hx Anemia: Yes - INTEGUMENTARY Hx Dermatological Problems: No - MUSCULOSKELETAL/RHEUMATOLOGICAL Hx Arthritis: Yes Hx Fractures: Yes - GASTROINTESTINAL Hx Gastrointestinal Disorders: No - GENITOURINARY/GYNECOLOGICAL Hx Genitourinary Disorders: No - PSYCHIATRIC Hx Anxiety: Yes Hx Depression: Yes Hx Post Traumatic Stress Disorder: Yes - SURGICAL HISTORY Hx Appendectomy: Yes Hx Cholecystectomy: Yes - ANESTHESIA Hx Anesthesia: Yes Hx Anesthesia Reactions: No Hx Malignant Hyperthermia: No Meds Allergies/Adverse Reactions: Allergies Allergy/AdvReac Type Severity Reaction Status Date / Time No Known Allergies Allergy Verified 05/24/18 23:42 - Medications Medications: Current Medications Heparin Sodium (Porcine) (Heparin) 5,000 units SC Q8 DAPHNE; Protocol Last Admin: 05/25/18 08:21 Dose: 5,000 units Hydrocortisone Sodium Succinate (Solu-Cortef) 100 mg IV Q8H DAPHNE Last Admin: 05/25/18 08:26 Dose: 100 mg Sodium Chloride (Sodium Chloride 0.9%) 2,000 mls @ 1,000 mls/hr IV .Q2H DAPHNE Stop: 05/26/18 02:43 Last Admin: 05/25/18 05:30 Dose: 1,000 mls/hr Sodium Chloride (Sodium Chloride 0.9%) 1,000 mls @ 150 mls/hr IV .Q6H40M DAPHNE Stop: 05/26/18 05:44 Last Admin: 05/25/18 08:23 Dose: 150 mls/hr Norepinephrine Bitartrate 4 mg (/ Dextrose) 254 mls @ 9.53 mls/hr IV .Q24H DAPHNE; Protocol Last Titration: 05/25/18 09:29 Dose: 5 mcg/min, 19.05 mls/hr Sodium Chloride (Sodium Chloride 0.9%) 1,000 mls @ 1,000 mls/hr IV .Q1H DAPHNE Stop: 05/26/18 07:26 Last Admin: 05/25/18 08:00 Dose: 1,000 mls/hr Acetylcysteine 8,160 mg/ (Dextrose) 1,040.8 mls @ 65.05 mls/hr IVPB ONCE ONE Stop: 05/26/18 06:29 Acetylcysteine 4,080 mg/ (Dextrose) 520.4 mls @ 130.1 mls/hr IVPB ONCE ONE Stop: 05/25/18 13:29 Physical Exam - Constitutional Appears: Well - Head Exam Head Exam: ATRAUMATIC, NORMAL INSPECTION, NORMOCEPHALIC - Eye Exam Eye Exam: EOMI, Normal appearance, PERRL Pupil Exam: NORMAL ACCOMODATION, PERRL - ENT Exam ENT Exam: Mucous Membranes Moist, Normal Exam - Neck Exam Neck exam: Positive for: Normal Inspection - Respiratory Exam Respiratory Exam: Clear to Auscultation Bilateral, NORMAL BREATHING PATTERN - Cardiovascular Exam Cardiovascular Exam: REGULAR RHYTHM, +S1, +S2 - GI/Abdominal Exam GI & Abdominal Exam: Normal Bowel Sounds, Soft. absent: Tenderness - Extremities Exam Extremities exam: Positive for: normal inspection - Back Exam Back exam: NORMAL INSPECTION - Neurological Exam Neurological exam: Altered, CN II-XII Intact, Reflexes Normal Additional comments: Dysarthric, not aphasic. No focal deficits noted. Oriented to place, and person, but not time. Generalized weakness, unable to ambulate. Strength is 3/5 throughout proximally and distally. - Psychiatric Exam Psychiatric exam: Normal Affect, Normal Mood - Skin Skin Exam: Dry, Intact, Normal Color, Warm Results - Vital Signs Recent Vital Signs: Last Vital Signs Temp 97.4 F L 05/25/18 08:00 Pulse 77 05/25/18 09:00 Resp 13 05/25/18 09:00 BP 139/67 05/25/18 09:00 Pulse Ox 98 05/25/18 09:00 - Labs Result Diagrams: 05/25/18 00:30 05/25/18 06:15 Labs: Laboratory Results - last 24 hr 05/25/18 05/25/18 05/25/18 00:30 00:30 01:03 WBC 6.2 RBC 3.25 L Hgb 10.4 L Hct 30.8 L MCV 94.6 H D MCH 31.8 H MCHC 33.6 RDW 14.1 Plt Count 199 MPV 9.5 Neut % (Auto) 48.0 L Lymph % (Auto) 31.6 Riley % (Auto) 18.9 H Eos % (Auto) 1.0 Baso % (Auto) 0.5 Neut # (Auto) 3.0 Lymph # (Auto) 2.0 [place] # (Auto) 1.2 H Eos # (Auto) 0.1 Baso # (Auto) 0.0 PT INR APTT D-Dimer, Quantitative pCO2 pO2 HCO3 ABG pH ABG Total CO2 ABG O2 Saturation ABG Base Excess Dane Test ABG Potassium A-a O2 Difference Glucose Lactate FiO2 Sodium 133 Potassium 4.3 Chloride 98 Carbon Dioxide 19 L Anion Gap 20 BUN 85 H Creatinine 4.4 H Est GFR ( Amer) 17 Est GFR (Non-Af Amer) 14 POC Glucose (mg/dL) 114 H Random Glucose 113 H Calcium 9.1 Total Bilirubin 0.4 AST 349 H D ALT 186 H D Alkaline Phosphatase 116 Ammonia Total Creatine Kinase Troponin I Total Protein 7.3 Albumin 3.8 Globulin 3.5 Albumin/Globulin Ratio 1.1 Arterial Blood Potassium Salicylates Urine Opiates Screen Urine Methadone Screen Acetaminophen Ur Barbiturates Screen Ur Phencyclidine Scrn Ur Amphetamines Screen U Benzodiazepines Scrn U Oth Cocaine Metabols U Cannabinoids Screen Alcohol, Quantitative < 10 Blood Type Antibody Screen BBK History Checked 05/25/18 05/25/18 05/25/18 01:52 02:11 02:54 WBC RBC Hgb Hct MCV MCH MCHC RDW Plt Count MPV Neut % (Auto) Lymph % (Auto) [place] % (Auto) Eos % (Auto) Baso % (Auto) Neut # (Auto) Lymph # (Auto) [place] # (Auto) Eos # (Auto) Baso # (Auto) PT INR APTT D-Dimer, Quantitative 932 H pCO2 33 L pO2 84 HCO3 17.4 L ABG pH 7.29 L ABG Total CO2 16.9 L ABG O2 Saturation 97.8 ABG Base Excess -9.6 L Dane Test Yes ABG Potassium 3.7 A-a O2 Difference 74.0 Glucose 115 H Lactate 0.8 FiO2 28.0 Sodium 131.0 L Potassium Chloride 103.0 Carbon Dioxide Anion Gap BUN Creatinine Est GFR ( Amer) Est GFR (Non-Af Amer) POC Glucose (mg/dL) Random Glucose Calcium Total Bilirubin AST ALT Alkaline Phosphatase Ammonia Total Creatine Kinase Troponin I Total Protein Albumin Globulin Albumin/Globulin Ratio Arterial Blood Potassium 3.7 Salicylates < 1.0 Urine Opiates Screen Urine Methadone Screen Acetaminophen < 10.0 L Ur Barbiturates Screen Ur Phencyclidine Scrn Ur Amphetamines Screen U Benzodiazepines Scrn U Oth Cocaine Metabols U Cannabinoids Screen Alcohol, Quantitative Blood Type Antibody Screen BBK History Checked 05/25/18 05/25/18 05/25/18 02:54 03:30 04:36 WBC RBC Hgb Hct MCV MCH MCHC RDW Plt Count MPV Neut % (Auto) Lymph % (Auto) [place] % (Auto) Eos % (Auto) Baso % (Auto) Neut # (Auto) Lymph # (Auto) [place] # (Auto) Eos # (Auto) Baso # (Auto) PT INR APTT D-Dimer, Quantitative pCO2 pO2 HCO3 ABG pH ABG Total CO2 ABG O2 Saturation ABG Base Excess Dane Test ABG Potassium A-a O2 Difference Glucose Lactate FiO2 Sodium Potassium Chloride Carbon Dioxide Anion Gap BUN Creatinine Est GFR ( Amer) Est GFR (Non-Af Amer) POC Glucose (mg/dL) Random Glucose Calcium Total Bilirubin AST ALT Alkaline Phosphatase Ammonia 21 Total Creatine Kinase Troponin I Total Protein Albumin Globulin Albumin/Globulin Ratio Arterial Blood Potassium Salicylates Urine Opiates Screen Negative Urine Methadone Screen Negative Acetaminophen Ur Barbiturates Screen Negative Ur Phencyclidine Scrn Negative Ur Amphetamines Screen Negative U Benzodiazepines Scrn Positive U Oth Cocaine Metabols Negative U Cannabinoids Screen Negative Alcohol, Quantitative < 10 Blood Type Antibody Screen BBK History Checked 05/25/18 05/25/18 05/25/18 06:15 06:15 06:15 WBC RBC Hgb Hct MCV MCH MCHC RDW Plt Count MPV Neut % (Auto) Lymph % (Auto) [place] % (Auto) Eos % (Auto) Baso % (Auto) Neut # (Auto) Lymph # (Auto) Riley # (Auto) Eos # (Auto) Baso # (Auto) PT 12.1 INR 1.1 APTT 36.9 D-Dimer, Quantitative pCO2 pO2 HCO3 ABG pH ABG Total CO2 ABG O2 Saturation ABG Base Excess Dane Test ABG Potassium A-a O2 Difference Glucose Lactate FiO2 Sodium 136 Potassium 4.1 Chloride 107 Carbon Dioxide 17 L Anion Gap 16 BUN 76 H Creatinine 3.1 H Est GFR ( Amer) 25 Est GFR (Non-Af Amer) 21 POC Glucose (mg/dL) Random Glucose 107 Calcium 8.3 L Total Bilirubin AST ALT Alkaline Phosphatase Ammonia Total Creatine Kinase 7931 H Troponin I 0.0170 Total Protein Albumin Globulin Albumin/Globulin Ratio Arterial Blood Potassium Salicylates Urine Opiates Screen Urine Methadone Screen Acetaminophen Ur Barbiturates Screen Ur Phencyclidine Scrn Ur Amphetamines Screen U Benzodiazepines Scrn U Oth Cocaine Metabols U Cannabinoids Screen Alcohol, Quantitative Blood Type O POSITIVE Antibody Screen Negative BBK History Checked Patient has bt Assessment & Plan (1) Toxic metabolic encephalopathy Assessment and Plan: Based on history, exam, lab findings and imaging, the patient does not appear to have any focal neurological deficits and this condition appears to be more systemic due to metabolic derangements and toxic substances. No further recommendation from a neurological perspective. Thank you for this consultation. Status: Acute
--- NOTE | 2018-05-25 10:42 | CT ---
Date of service: 05/25/2018 PROCEDURE: CT HEAD WITHOUT CONTRAST. HISTORY: Altered Mental Status COMPARISON: 12/13/2017. TECHNIQUE: Axial computed tomography images were obtained through the head/brain without intravenous contrast. Supplemental Coronal and Sagittal projections created and reviewed. Radiation dose: Total exam DLP = 841.81 mGy-cm. This CT exam was performed using one or more of the following dose reduction techniques: Automated exposure control, adjustment of the mA and/or kV according to patient size, and/or use of iterative reconstruction technique. FINDINGS: HEMORRHAGE: No intracranial hemorrhage. BRAIN: No mass effect or edema. No significant atrophy or chronic microvascular ischemic changes. VENTRICLES: Unremarkable. No hydrocephalus. CALVARIUM: Unremarkable. PARANASAL SINUSES: Unremarkable as visualized. No significant inflammatory changes. MASTOID AIR CELLS: Unremarkable as visualized. No inflammatory changes. OTHER FINDINGS: None. IMPRESSION: No acute intracranial abnormalities. No significant findings to account for the clinical presentation. No significant interval change compared to the prior examination(s). Concordant results (preliminary interpretation) provided by [facility]. Procedure Completed: 03:42. Preliminary Report: Interpreted and electronically signed: 04:23. Final Interpretation: 10:38.
--- NOTE | 2018-05-25 12:04 | CP.PCM.HP ---
History of Present Illness - History of Present Illness History of Present Illness: 62 YR OLD MALE ADMITTED WITH DRUG OD.HE RECENTLY HAD PODIATRY SURGERY HE IS LETHARGIC BUT EASILY AROUSABLE LABS ARE REMARKABLE FOR ACUTE KIDNEY FAILURE Present on Admission - Present on Admission Any Indicators Present on Admission: No Past Patient History - Infectious Disease Hx of Infectious Diseases: None - Past Medical History & Family History Past Medical History?: Yes - Past Social History Smoking Status: Never Smoked Chewing Tobacco Use: No Cigar Use: No Alcohol: Occasional Home Situation {Lives}: Alone - CARDIAC Hx Hypertension: Yes - PULMONARY Hx Respiratory Disorders: No - NEUROLOGICAL Hx Neurological Disorder: No - HEENT Hx HEENT Problems: No - RENAL Hx Chronic Kidney Disease: No - ENDOCRINE/METABOLIC Hx Endocrine Disorders: No - HEMATOLOGICAL/ONCOLOGICAL Hx Anemia: Yes - INTEGUMENTARY Hx Dermatological Problems: No - MUSCULOSKELETAL/RHEUMATOLOGICAL Hx Arthritis: Yes Hx Fractures: Yes - GASTROINTESTINAL Hx Gastrointestinal Disorders: No - GENITOURINARY/GYNECOLOGICAL Hx Genitourinary Disorders: No - PSYCHIATRIC Hx Anxiety: Yes Hx Depression: Yes Hx Post Traumatic Stress Disorder: Yes - SURGICAL HISTORY Hx Appendectomy: Yes Hx Cholecystectomy: Yes - ANESTHESIA Hx Anesthesia: Yes Hx Anesthesia Reactions: No Hx Malignant Hyperthermia: No Meds Allergies/Adverse Reactions: Allergies Allergy/AdvReac Type Severity Reaction Status Date / Time No Known Allergies Allergy Verified 05/24/18 23:42 Physical Exam - Constitutional Appears: Well, Older Than Stated Age, Chronically Ill - Head Exam Head Exam: ATRAUMATIC, NORMAL INSPECTION, NORMOCEPHALIC - Eye Exam Eye Exam: EOMI, Normal appearance, PERRL Pupil Exam: NORMAL ACCOMODATION, PERRL - ENT Exam ENT Exam: Mucous Membranes Moist, Normal Exam - Neck Exam Neck exam: Positive for: Normal Inspection - Respiratory Exam Respiratory Exam: Clear to Auscultation Bilateral, NORMAL BREATHING PATTERN - Cardiovascular Exam Cardiovascular Exam: REGULAR RHYTHM - GI/Abdominal Exam GI & Abdominal Exam: Normal Bowel Sounds, Soft. absent: Tenderness - Rectal Exam Rectal Exam: NORMAL INSPECTION - Extremities Exam Additional comments: R ANKLE BOOT - Back Exam Back exam: NORMAL INSPECTION - Neurological Exam Neurological exam: Alert, CN II-XII Intact, Normal Gait, Oriented x3, Reflexes Normal - Psychiatric Exam Psychiatric exam: Normal Affect, Normal Mood - Skin Skin Exam: Dry, Intact, Normal Color, Warm Results - Vital Signs Recent Vital Signs: Last Vital Signs Temp 97.4 F L 05/25/18 08:00 Pulse 68 05/25/18 10:00 Resp 12 05/25/18 10:00 BP 117/69 05/25/18 10:00 Pulse Ox 98 05/25/18 10:00 - Labs Result Diagrams: 05/25/18 00:30 05/25/18 06:15 Labs: Laboratory Results - last 24 hr 05/25/18 05/25/18 05/25/18 00:30 00:30 01:03 WBC 6.2 RBC 3.25 L Hgb 10.4 L Hct 30.8 L MCV 94.6 H D MCH 31.8 H MCHC 33.6 RDW 14.1 Plt Count 199 MPV 9.5 Neut % (Auto) 48.0 L Lymph % (Auto) 31.6 [place] % (Auto) 18.9 H Eos % (Auto) 1.0 Baso % (Auto) 0.5 Neut # (Auto) 3.0 Lymph # (Auto) 2.0 [place] # (Auto) 1.2 H Eos # (Auto) 0.1 Baso # (Auto) 0.0 PT INR APTT D-Dimer, Quantitative pCO2 pO2 HCO3 ABG pH ABG Total CO2 ABG O2 Saturation ABG Base Excess Dane Test ABG Potassium A-a O2 Difference Glucose Lactate FiO2 Sodium 133 Potassium 4.3 Chloride 98 Carbon Dioxide 19 L Anion Gap 20 BUN 85 H Creatinine 4.4 H Est GFR ( Amer) 17 Est GFR (Non-Af Amer) 14 POC Glucose (mg/dL) 114 H Random Glucose 113 H Calcium 9.1 Total Bilirubin 0.4 AST 349 H D ALT 186 H D Alkaline Phosphatase 116 Ammonia Total Creatine Kinase Troponin I Total Protein 7.3 Albumin 3.8 Globulin 3.5 Albumin/Globulin Ratio 1.1 Arterial Blood Potassium Salicylates Urine Opiates Screen Urine Methadone Screen Acetaminophen Ur Barbiturates Screen Ur Phencyclidine Scrn Ur Amphetamines Screen U Benzodiazepines Scrn U Oth Cocaine Metabols U Cannabinoids Screen Alcohol, Quantitative < 10 Blood Type Antibody Screen BBK History Checked 05/25/18 05/25/18 05/25/18 01:52 02:11 02:54 WBC RBC Hgb Hct MCV MCH MCHC RDW Plt Count MPV Neut % (Auto) Lymph % (Auto) [place] % (Auto) Eos % (Auto) Baso % (Auto) Neut # (Auto) Lymph # (Auto) [place] # (Auto) Eos # (Auto) Baso # (Auto) PT INR APTT D-Dimer, Quantitative 932 H pCO2 33 L pO2 84 HCO3 17.4 L ABG pH 7.29 L ABG Total CO2 16.9 L ABG O2 Saturation 97.8 ABG Base Excess -9.6 L Dane Test Yes ABG Potassium 3.7 A-a O2 Difference 74.0 Glucose 115 H Lactate 0.8 FiO2 28.0 Sodium 131.0 L Potassium Chloride 103.0 Carbon Dioxide Anion Gap BUN Creatinine Est GFR ( Amer) Est GFR (Non-Af Amer) POC Glucose (mg/dL) Random Glucose Calcium Total Bilirubin AST ALT Alkaline Phosphatase Ammonia Total Creatine Kinase Troponin I Total Protein Albumin Globulin Albumin/Globulin Ratio Arterial Blood Potassium 3.7 Salicylates < 1.0 Urine Opiates Screen Urine Methadone Screen Acetaminophen < 10.0 L Ur Barbiturates Screen Ur Phencyclidine Scrn Ur Amphetamines Screen U Benzodiazepines Scrn U Oth Cocaine Metabols U Cannabinoids Screen Alcohol, Quantitative Blood Type Antibody Screen BBK History Checked 05/25/18 05/25/18 05/25/18 02:54 03:30 04:36 WBC RBC Hgb Hct MCV MCH MCHC RDW Plt Count MPV Neut % (Auto) Lymph % (Auto) [place] % (Auto) Eos % (Auto) Baso % (Auto) Neut # (Auto) Lymph # (Auto) [place] # (Auto) Eos # (Auto) Baso # (Auto) PT INR APTT D-Dimer, Quantitative pCO2 pO2 HCO3 ABG pH ABG Total CO2 ABG O2 Saturation ABG Base Excess Dane Test ABG Potassium A-a O2 Difference Glucose Lactate FiO2 Sodium Potassium Chloride Carbon Dioxide Anion Gap BUN Creatinine Est GFR ( Amer) Est GFR (Non-Af Amer) POC Glucose (mg/dL) Random Glucose Calcium Total Bilirubin AST ALT Alkaline Phosphatase Ammonia 21 Total Creatine Kinase Troponin I Total Protein Albumin Globulin Albumin/Globulin Ratio Arterial Blood Potassium Salicylates Urine Opiates Screen Negative Urine Methadone Screen Negative Acetaminophen Ur Barbiturates Screen Negative Ur Phencyclidine Scrn Negative Ur Amphetamines Screen Negative U Benzodiazepines Scrn Positive U Oth Cocaine Metabols Negative U Cannabinoids Screen Negative Alcohol, Quantitative < 10 Blood Type Antibody Screen BBK History Checked 0305/25/18 05/25/18 06:15 06:15 06:15 WBC RBC Hgb Hct MCV MCH MCHC RDW Plt Count MPV Neut % (Auto) Lymph % (Auto) [place] % (Auto) Eos % (Auto) Baso % (Auto) Neut # (Auto) Lymph # (Auto) [place] # (Auto) Eos # (Auto) Baso # (Auto) PT 12.1 INR 1.1 APTT 36.9 D-Dimer, Quantitative pCO2 pO2 HCO3 ABG pH ABG Total CO2 ABG O2 Saturation ABG Base Excess Dane Test ABG Potassium A-a O2 Difference Glucose Lactate FiO2 Sodium 136 Potassium 4.1 Chloride 107 Carbon Dioxide 17 L Anion Gap 16 BUN 76 H Creatinine 3.1 H Est GFR ( Amer) 25 Est GFR (Non-Af Amer) 21 POC Glucose (mg/dL) Random Glucose 107 Calcium 8.3 L Total Bilirubin AST ALT Alkaline Phosphatase Ammonia Total Creatine Kinase 7931 H Troponin I 0.0170 Total Protein Albumin Globulin Albumin/Globulin Ratio Arterial Blood Potassium Salicylates Urine Opiates Screen Urine Methadone Screen Acetaminophen Ur Barbiturates Screen Ur Phencyclidine Scrn Ur Amphetamines Screen U Benzodiazepines Scrn U Oth Cocaine Metabols U Cannabinoids Screen Alcohol, Quantitative Blood Type O POSITIVE Antibody Screen Negative BBK History Checked Patient has bt Assessment & Plan - Assessment and Plan (Free Text) Assessment: METABOLIC ENCEPHALOPATHY DRUG OD ACUTE KIDNEY FAILUE--DEHYDRATION S/P R LEG SURGERY Plan: CONTINUE RX ORDERED
--- NOTE | 2018-05-25 12:11 | CP.PCM.CON ---
History of Present Illness - History of Present Illness History of Present Illness: pt is seen and examined, full consult is dictated #[id number] 1. ZURI 2. dehydration 3. rhabdo 4. transaminitis c/w ivf check urine lytes, osm, cr, myoglobin c/w ivf ns and d5w with 150 meq nahco3 at 150 ml/hr alternate bags x 24 hrs Past Patient History - Infectious Disease Hx of Infectious Diseases: None - Past Medical History & Family History Past Medical History?: Yes - Past Social History Smoking Status: Never Smoked Chewing Tobacco Use: No Cigar Use: No Alcohol: Occasional Home Situation {Lives}: Alone - CARDIAC Hx Hypertension: Yes - PULMONARY Hx Respiratory Disorders: No - NEUROLOGICAL Hx Neurological Disorder: No - HEENT Hx HEENT Problems: No - RENAL Hx Chronic Kidney Disease: No - ENDOCRINE/METABOLIC Hx Endocrine Disorders: No - HEMATOLOGICAL/ONCOLOGICAL Hx Anemia: Yes - INTEGUMENTARY Hx Dermatological Problems: No - MUSCULOSKELETAL/RHEUMATOLOGICAL Hx Arthritis: Yes Hx Fractures: Yes - GASTROINTESTINAL Hx Gastrointestinal Disorders: No - GENITOURINARY/GYNECOLOGICAL Hx Genitourinary Disorders: No - PSYCHIATRIC Hx Anxiety: Yes Hx Depression: Yes Hx Post Traumatic Stress Disorder: Yes - SURGICAL HISTORY Hx Appendectomy: Yes Hx Cholecystectomy: Yes - ANESTHESIA Hx Anesthesia: Yes Hx Anesthesia Reactions: No Hx Malignant Hyperthermia: No Meds Allergies/Adverse Reactions: Allergies Allergy/AdvReac Type Severity Reaction Status Date / Time No Known Allergies Allergy Verified 05/24/18 23:42 - Medications Medications: Current Medications Heparin Sodium (Porcine) (Heparin) 5,000 units SC Q8 DAPHNE; Protocol Last Admin: 05/25/18 08:21 Dose: 5,000 units Hydrocortisone Sodium Succinate (Solu-Cortef) 100 mg IV Q8H DAPHNE Last Admin: 05/25/18 08:26 Dose: 100 mg Sodium Chloride (Sodium Chloride 0.9%) 2,000 mls @ 1,000 mls/hr IV .Q2H DAPHNE Stop: 05/26/18 02:43 Last Admin: 05/25/18 05:30 Dose: 1,000 mls/hr Sodium Chloride (Sodium Chloride 0.9%) 1,000 mls @ 150 mls/hr IV .Q6H40M DAPHNE Stop: 05/26/18 05:44 Last Admin: 05/25/18 08:23 Dose: 150 mls/hr Norepinephrine Bitartrate 4 mg (/ Dextrose) 254 mls @ 9.53 mls/hr IV .Q24H DAPHNE; Protocol Last Titration: 05/25/18 09:29 Dose: 5 mcg/min, 19.05 mls/hr Sodium Chloride (Sodium Chloride 0.9%) 1,000 mls @ 1,000 mls/hr IV .Q1H DAPHNE Stop: 05/26/18 07:26 Last Admin: 05/25/18 08:00 Dose: 1,000 mls/hr Acetylcysteine 8,160 mg/ (Dextrose) 1,040.8 mls @ 65.05 mls/hr IVPB ONCE ONE Stop: 05/26/18 06:29 Acetylcysteine 4,080 mg/ (Dextrose) 520.4 mls @ 130.1 mls/hr IVPB ONCE ONE Stop: 05/25/18 13:29 Sodium Bicarbonate 150 meq/ (Dextrose) 1,150 mls @ 150 mls/hr IV .Q7H40M [facility] Stop: 05/26/18 12:05 Results - Vital Signs Recent Vital Signs: Last Vital Signs Temp 97.4 F L 05/25/18 08:00 Pulse 68 05/25/18 10:00 Resp 12 05/25/18 10:00 BP 117/69 05/25/18 10:00 Pulse Ox 98 05/25/18 10:00 - Labs Result Diagrams: 05/25/18 00:30 05/25/18 13:10 Labs: Laboratory Results - last 24 hr 05/25/18 05/25/18 05/25/18 00:30 00:30 01:03 WBC 6.2 RBC 3.25 L Hgb 10.4 L Hct 30.8 L MCV 94.6 H D MCH 31.8 H MCHC 33.6 RDW 14.1 Plt Count 199 MPV 9.5 Neut % (Auto) 48.0 L Lymph % (Auto) 31.6 [place] % (Auto) 18.9 H Eos % (Auto) 1.0 Baso % (Auto) 0.5 Neut # (Auto) 3.0 Lymph # (Auto) 2.0 [place] # (Auto) 1.2 H Eos # (Auto) 0.1 Baso # (Auto) 0.0 PT INR APTT D-Dimer, Quantitative pCO2 pO2 HCO3 ABG pH ABG Total CO2 ABG O2 Saturation ABG Base Excess Dane Test ABG Potassium A-a O2 Difference Glucose Lactate FiO2 Sodium 133 Potassium 4.3 Chloride 98 Carbon Dioxide 19 L Anion Gap 20 BUN 85 H Creatinine 4.4 H Est GFR ( Amer) 17 Est GFR (Non-Af Amer) 14 POC Glucose (mg/dL) 114 H Random Glucose 113 H Calcium 9.1 Total Bilirubin 0.4 AST 349 H D ALT 186 H D Alkaline Phosphatase 116 Ammonia Total Creatine Kinase Troponin I Total Protein 7.3 Albumin 3.8 Globulin 3.5 Albumin/Globulin Ratio 1.1 Arterial Blood Potassium Salicylates Urine Opiates Screen Urine Methadone Screen Acetaminophen Ur Barbiturates Screen Ur Phencyclidine Scrn Ur Amphetamines Screen U Benzodiazepines Scrn U Oth Cocaine Metabols U Cannabinoids Screen Alcohol, Quantitative < 10 Blood Type Antibody Screen BBK History Checked 05/25/18 05/25/18 05/25/18 01:52 02:11 02:54 WBC RBC Hgb Hct MCV MCH MCHC RDW Plt Count MPV Neut % (Auto) Lymph % (Auto) [place] % (Auto) Eos % (Auto) Baso % (Auto) Neut # (Auto) Lymph # (Auto) [place] # (Auto) Eos # (Auto) Baso # (Auto) PT INR APTT D-Dimer, Quantitative 932 H pCO2 33 L pO2 84 HCO3 17.4 L ABG pH 7.29 L ABG Total CO2 16.9 L ABG O2 Saturation 97.8 ABG Base Excess -9.6 L Dane Test Yes ABG Potassium 3.7 A-a O2 Difference 74.0 Glucose 115 H Lactate 0.8 FiO2 28.0 Sodium 131.0 L Potassium Chloride 103.0 Carbon Dioxide Anion Gap BUN Creatinine Est GFR ( Amer) Est GFR (Non-Af Amer) POC Glucose (mg/dL) Random Glucose Calcium Total Bilirubin AST ALT Alkaline Phosphatase Ammonia Total Creatine Kinase Troponin I Total Protein Albumin Globulin Albumin/Globulin Ratio Arterial Blood Potassium 3.7 Salicylates < 1.0 Urine Opiates Screen Urine Methadone Screen Acetaminophen < 10.0 L Ur Barbiturates Screen Ur Phencyclidine Scrn Ur Amphetamines Screen U Benzodiazepines Scrn U Oth Cocaine Metabols U Cannabinoids Screen Alcohol, Quantitative Blood Type Antibody Screen BBK History Checked 05/25/18 05/25/18 05/25/18 02:54 03:30 04:36 WBC RBC Hgb Hct MCV MCH MCHC RDW Plt Count MPV Neut % (Auto) Lymph % (Auto) [place] % (Auto) Eos % (Auto) Baso % (Auto) Neut # (Auto) Lymph # (Auto) [place] # (Auto) Eos # (Auto) Baso # (Auto) PT INR APTT D-Dimer, Quantitative pCO2 pO2 HCO3 ABG pH ABG Total CO2 ABG O2 Saturation ABG Base Excess Dane Test ABG Potassium A-a O2 Difference Glucose Lactate FiO2 Sodium Potassium Chloride Carbon Dioxide Anion Gap BUN Creatinine Est GFR ( Amer) Est GFR (Non-Af Amer) POC Glucose (mg/dL) Random Glucose Calcium Total Bilirubin AST ALT Alkaline Phosphatase Ammonia 21 Total Creatine Kinase Troponin I Total Protein Albumin Globulin Albumin/Globulin Ratio Arterial Blood Potassium Salicylates Urine Opiates Screen Negative Urine Methadone Screen Negative Acetaminophen Ur Barbiturates Screen Negative Ur Phencyclidine Scrn Negative Ur Amphetamines Screen Negative U Benzodiazepines Scrn Positive U Oth Cocaine Metabols Negative U Cannabinoids Screen Negative Alcohol, Quantitative < 10 Blood Type Antibody Screen BBK History Checked 05/25/18 05/25/18 05/25/18 06:15 06:15 06:15 WBC RBC Hgb Hct MCV MCH MCHC RDW Plt Count MPV Neut % (Auto) Lymph % (Auto) [place] % (Auto) Eos % (Auto) Baso % (Auto) Neut # (Auto) Lymph # (Auto) [place] # (Auto) Eos # (Auto) Baso # (Auto) PT 12.1 INR 1.1 APTT 36.9 D-Dimer, Quantitative pCO2 pO2 HCO3 ABG pH ABG Total CO2 ABG O2 Saturation ABG Base Excess Dane Test ABG Potassium A-a O2 Difference Glucose Lactate FiO2 Sodium 136 Potassium 4.1 Chloride 107 Carbon Dioxide 17 L Anion Gap 16 BUN 76 H Creatinine 3.1 H Est GFR ( Amer) 25 Est GFR (Non-Af Amer) 21 POC Glucose (mg/dL) Random Glucose 107 Calcium 8.3 L Total Bilirubin AST ALT Alkaline Phosphatase Ammonia Total Creatine Kinase 7931 H Troponin I 0.0170 Total Protein Albumin Globulin Albumin/Globulin Ratio Arterial Blood Potassium Salicylates Urine Opiates Screen Urine Methadone Screen Acetaminophen Ur Barbiturates Screen Ur Phencyclidine Scrn Ur Amphetamines Screen U Benzodiazepines Scrn U Oth Cocaine Metabols U Cannabinoids Screen Alcohol, Quantitative Blood Type O POSITIVE Antibody Screen Negative BBK History Checked Patient has bt
--- NOTE | 2018-05-25 12:43 | CP.PCM.CON ---
History of Present Illness - History of Present Illness History of Present Illness: Podiatry consult note for Dr. Kvng Snow 62 y/o male patient with PMHx of Anemia, Arthritis (general,hands), Back Problems, Depression, Fractures, HTN, Post Traumatic Stress Disorder, Chronic Pain (neck) seen and evaluated in the bedside 7 weeks S/P ORIF R ankle for pain in his right ankle. Patient states that he had injury in the beginning of April and his right ankle was fractured. He states that he had ORIF with Dr. Snow for his right ankle. He states that he went to subacute rehab at [facility]. He states that left [facility] upon his request and in the beginning of [place] He states that he went to Dr. Snow who did him x-ray and found the surgery site intact. Patient states that he came last week to the ED as he has pain in the surgery site and he want to go back to [facility]. Patient discharged from the ED on pain medications and Dr. 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 Patient came to the ED yesterday and was admitted for acute kidney injury. Patient states that in the previous week he was not eating or drinking and just taking pain meds. Patient denies any other pedal complaint. Patient denies any recent f/n/v/c/sob/cp PMHx: Anemia, Arthritis (general,hands), Back Problems, Depression, Fractures, HTN, Post Traumatic Stress Disorder, Chronic Pain (neck) PSHx: Appendectomy, Back Surgery, Cholecystectomy, Hernia Repair, ORIF right ankle Allergies: NKDA Social History: denies smoking, admits to drinking wine occasionally Review of Systems - Review of Systems Review of Systems: As per HPI - Constitutional Constitutional: As Per HPI Past Patient History - Infectious Disease Hx of Infectious Diseases: None - Past Medical History & Family History Past Medical History?: Yes - Past Social History Smoking Status: Never Smoked Chewing Tobacco Use: No Cigar Use: No Alcohol: Occasional Home Situation {Lives}: Alone - CARDIAC Hx Hypertension: Yes - PULMONARY Hx Respiratory Disorders: No - NEUROLOGICAL Hx Neurological Disorder: No - HEENT Hx HEENT Problems: No - RENAL Hx Chronic Kidney Disease: No - ENDOCRINE/METABOLIC Hx Endocrine Disorders: No - HEMATOLOGICAL/ONCOLOGICAL Hx Anemia: Yes - INTEGUMENTARY Hx Dermatological Problems: No - MUSCULOSKELETAL/RHEUMATOLOGICAL Hx Arthritis: Yes Hx Fractures: Yes - GASTROINTESTINAL Hx Gastrointestinal Disorders: No - GENITOURINARY/GYNECOLOGICAL Hx Genitourinary Disorders: No - PSYCHIATRIC Hx Anxiety: Yes Hx Depression: Yes Hx Post Traumatic Stress Disorder: Yes - SURGICAL HISTORY Hx Appendectomy: Yes Hx Cholecystectomy: Yes - ANESTHESIA Hx Anesthesia: Yes Hx Anesthesia Reactions: No Hx Malignant Hyperthermia: No Meds Allergies/Adverse Reactions: Allergies Allergy/AdvReac Type Severity Reaction Status Date / Time No Known Allergies Allergy Verified 05/24/18 23:42 - Medications Medications: Current Medications Heparin Sodium (Porcine) (Heparin) 5,000 units SC Q8 DAPHNE; Protocol Last Admin: 05/25/18 08:21 Dose: 5,000 units Hydrocortisone Sodium Succinate (Solu-Cortef) 100 mg IV Q8H DAPHNE Last Admin: 05/25/18 08:26 Dose: 100 mg Sodium Chloride (Sodium Chloride 0.9%) 2,000 mls @ 1,000 mls/hr IV .Q2H DAPHNE Stop: 05/26/18 02:43 Last Admin: 05/25/18 05:30 Dose: 1,000 mls/hr Sodium Chloride (Sodium Chloride 0.9%) 1,000 mls @ 150 mls/hr IV .Q6H40M DAPHNE Stop: 05/26/18 05:44 Last Admin: 05/25/18 08:23 Dose: 150 mls/hr Norepinephrine Bitartrate 4 mg (/ Dextrose) 254 mls @ 9.53 mls/hr IV .Q24H DAPHNE; Protocol Last Titration: 05/25/18 09:29 Dose: 5 mcg/min, 19.05 mls/hr Sodium Chloride (Sodium Chloride 0.9%) 1,000 mls @ 1,000 mls/hr IV .Q1H DAPHNE Stop: 05/26/18 07:26 Last Admin: 05/25/18 08:00 Dose: 1,000 mls/hr Acetylcysteine 8,160 mg/ (Dextrose) 1,040.8 mls @ 65.05 mls/hr IVPB ONCE ONE Stop: 05/26/18 06:29 Acetylcysteine 4,080 mg/ (Dextrose) 520.4 mls @ 130.1 mls/hr IVPB ONCE ONE Stop: 05/25/18 13:29 Sodium Bicarbonate 150 meq/ (Dextrose) 1,150 mls @ 150 mls/hr IV .Q7H40M [facility]APHNE Stop: 05/26/18 12:05 Physical Exam - Constitutional Appears: Non-toxic - Head Exam Head Exam: ATRAUMATIC, NORMOCEPHALIC - Extremities Exam Additional comments: Right Lower Extremity Exam VASC: DP/PT pulses palpable 2/4 bilaterally, Cap refill less than 3 secondsto all digits, Temp gradient warm to cool proximal to distal, No edema noted to the right ankle NEURO: epicritic and protective sensations both intact DERM: moderate non-pitting edema noted to the ankle, Surgical wounds are clean/dry and intact with no drainage, erythema or any sign of dehescience. MSK: Mild pain with ankle range of motion, mild pain on palpation along the perimalleolar area. Muscle power intact 5/5 to all groups. - Neurological Exam Neurological exam: Alert Results - Vital Signs Recent Vital Signs: Last Vital Signs Temp 97.4 F L 05/25/18 08:00 Pulse 68 05/25/18 10:00 Resp 12 05/25/18 10:00 BP 117/69 05/25/18 10:00 Pulse Ox 98 05/25/18 10:00 - Labs Result Diagrams: 05/25/18 00:30 05/25/18 06:15 Labs: Laboratory Results - last 24 hr 05/25/18 05/25/18 05/25/18 00:30 00:30 01:03 WBC 6.2 RBC 3.25 L Hgb 10.4 L Hct 30.8 L MCV 94.6 H D MCH 31.8 H MCHC 33.6 RDW 14.1 Plt Count 199 MPV 9.5 Neut % (Auto) 48.0 L Lymph % (Auto) 31.6 [place] % (Auto) 18.9 H Eos % (Auto) 1.0 Baso % (Auto) 0.5 Neut # (Auto) 3.0 Lymph # (Auto) 2.0 [place] # (Auto) 1.2 H Eos # (Auto) 0.1 Baso # (Auto) 0.0 PT INR APTT D-Dimer, Quantitative pCO2 pO2 HCO3 ABG pH ABG Total CO2 ABG O2 Saturation ABG Base Excess Dane Test ABG Potassium A-a O2 Difference Glucose Lactate FiO2 Sodium 133 Potassium 4.3 Chloride 98 Carbon Dioxide 19 L Anion Gap 20 BUN 85 H Creatinine 4.4 H Est GFR ( Amer) 17 Est GFR (Non-Af Amer) 14 POC Glucose (mg/dL) 114 H Random Glucose 113 H Calcium 9.1 Total Bilirubin 0.4 AST 349 H D ALT 186 H D Alkaline Phosphatase 116 Ammonia Total Creatine Kinase Troponin I Total Protein 7.3 Albumin 3.8 Globulin 3.5 Albumin/Globulin Ratio 1.1 Arterial Blood Potassium Salicylates Urine Opiates Screen Urine Methadone Screen Acetaminophen Ur Barbiturates Screen Ur Phencyclidine Scrn Ur Amphetamines Screen U Benzodiazepines Scrn U Oth Cocaine Metabols U Cannabinoids Screen Alcohol, Quantitative < 10 Blood Type Antibody Screen BBK History Checked 05/25/18 05/25/18 05/25/18 01:52 02:11 02:54 WBC RBC Hgb Hct MCV MCH MCHC RDW Plt Count MPV Neut % (Auto) Lymph % (Auto) [place] % (Auto) Eos % (Auto) Baso % (Auto) Neut # (Auto) Lymph # (Auto) [place] # (Auto) Eos # (Auto) Baso # (Auto) PT INR APTT D-Dimer, Quantitative 932 H pCO2 33 L pO2 84 HCO3 17.4 L ABG pH 7.29 L ABG Total CO2 16.9 L ABG O2 Saturation 97.8 ABG Base Excess -9.6 L Dane Test Yes ABG Potassium 3.7 A-a O2 Difference 74.0 Glucose 115 H Lactate 0.8 FiO2 28.0 Sodium 131.0 L Potassium Chloride 103.0 Carbon Dioxide Anion Gap BUN Creatinine Est GFR ( Amer) Est GFR (Non-Af Amer) POC Glucose (mg/dL) Random Glucose Calcium Total Bilirubin AST ALT Alkaline Phosphatase Ammonia Total Creatine Kinase Troponin I Total Protein Albumin Globulin Albumin/Globulin Ratio Arterial Blood Potassium 3.7 Salicylates < 1.0 Urine Opiates Screen Urine Methadone Screen Acetaminophen < 10.0 L Ur Barbiturates Screen Ur Phencyclidine Scrn Ur Amphetamines Screen U Benzodiazepines Scrn U Oth Cocaine Metabols U Cannabinoids Screen Alcohol, Quantitative Blood Type Antibody Screen BBK History Checked 05/25/18 05/25/18 05/25/18 02:54 03:30 04:36 WBC RBC Hgb Hct MCV MCH MCHC RDW Plt Count MPV Neut % (Auto) Lymph % (Auto) [place] % (Auto) Eos % (Auto) Baso % (Auto) Neut # (Auto) Lymph # (Auto) [place] # (Auto) Eos # (Auto) Baso # (Auto) PT INR APTT D-Dimer, Quantitative pCO2 pO2 HCO3 ABG pH ABG Total CO2 ABG O2 Saturation ABG Base Excess Dane Test ABG Potassium A-a O2 Difference Glucose Lactate FiO2 Sodium Potassium Chloride Carbon Dioxide Anion Gap BUN Creatinine Est GFR ( Amer) Est GFR (Non-Af Amer) POC Glucose (mg/dL) Random Glucose Calcium Total Bilirubin AST ALT Alkaline Phosphatase Ammonia 21 Total Creatine Kinase Troponin I Total Protein Albumin Globulin Albumin/Globulin Ratio Arterial Blood Potassium Salicylates Urine Opiates Screen Negative Urine Methadone Screen Negative Acetaminophen Ur Barbiturates Screen Negative Ur Phencyclidine Scrn Negative Ur Amphetamines Screen Negative U Benzodiazepines Scrn Positive U Oth Cocaine Metabols Negative U Cannabinoids Screen Negative Alcohol, Quantitative < 10 Blood Type Antibody Screen BBK History Checked 05/25/18 05/25/18 05/25/18 06:15 06:15 06:15 WBC RBC Hgb Hct MCV MCH MCHC RDW Plt Count MPV Neut % (Auto) Lymph % (Auto) [place] % (Auto) Eos % (Auto) Baso % (Auto) Neut # (Auto) Lymph # (Auto) [place] # (Auto) Eos # (Auto) Baso # (Auto) PT 12.1 INR 1.1 APTT 36.9 D-Dimer, Quantitative pCO2 pO2 HCO3 ABG pH ABG Total CO2 ABG O2 Saturation ABG Base Excess Dane Test ABG Potassium A-a O2 Difference Glucose Lactate FiO2 Sodium 136 Potassium 4.1 Chloride 107 Carbon Dioxide 17 L Anion Gap 16 BUN 76 H Creatinine 3.1 H Est GFR ( Amer) 25 Est GFR (Non-Af Amer) 21 POC Glucose (mg/dL) Random Glucose 107 Calcium 8.3 L Total Bilirubin AST ALT Alkaline Phosphatase Ammonia Total Creatine Kinase 7931 H Troponin I 0.0170 Total Protein Albumin Globulin Albumin/Globulin Ratio Arterial Blood Potassium Salicylates Urine Opiates Screen Urine Methadone Screen Acetaminophen Ur Barbiturates Screen Ur Phencyclidine Scrn Ur Amphetamines Screen U Benzodiazepines Scrn U Oth Cocaine Metabols U Cannabinoids Screen Alcohol, Quantitative Blood Type O POSITIVE Antibody Screen Negative BBK History Checked Patient has bt Assessment & Plan - Assessment and Plan (Free Text) Assessment: 62 y/o male patient with PMHx of Anemia, Arthritis (general,hands), Back Problems, Depression, Fractures, HTN, Post Traumatic Stress Disorder, Chronic Pain (neck) seen and evaluated in the bedside 7 weeks S/P ORIF R ankle for pain in his right ankle. Plan: Patient seen and evaluated at bedside in the ED Plan discussed with Dr. Snow Chart and vitals reviewed- afebrile, No leukocytosis Ordered Right Ankle X-rays. Patient to stay in CAM walker while ambulating. patient bear weight partially to his right lower extremity. Ordered PT evaluation and treatment. Thank you for the consult. Podiatry will continue to follow up the patient while in house. - Date & Time Date: 05/25/18 Time: 12:44
[2018-05-25] MEDS: Sodium Bicarbonate 8.4% 150 MEQ in Dextrose 5% In Water 1,000 ML IV SCH ×2 (14:03→23:57)
[2018-05-25 14:26] LABS: ALBUMIN 3.5 g/dL (3.5-5.0); CALCIUM 8.5 mg/dL (8.4-10.2)
[2018-05-25 15:14] LABS: CREATININE, RANDOM URINE 44.3 mg/dL
--- NOTE | 2018-05-25 15:22 | RAD ---
Date of service: 05/25/2018 PROCEDURE: Right Ankle Radiographs. HISTORY: S/P R ankle ORIF COMPARISON: 05/02/2018 FINDINGS: BONES: Stable findings distal right tibia. No evidence of orthopedic hardware failure. Healing distal left fibular fracture. Major fracture fragments are anatomically aligned. JOINTS: Normal. No osteoarthritis. Ankle mortise maintained. Talar dome intact SOFT TISSUES: Interval improvement with respect to soft tissue swelling. OTHER FINDINGS: None. IMPRESSION: Healing fractures distal right tibia and fibula.
[2018-05-25 17:37] LABS: FOLATE 15.3 ng/mL
[2018-05-25 23:21] LABS: URINE BILIRUBIN NEGATIVE (NEGATIVE); URINE BLOOD MODERATE (NEGATIVE); URINE CLARITY CLEAR (Clear); URINE COLOR YELLOW (YELLOW); URINE GLUCOSE (UA) NEG (NEGATIVE); URINE LEUKOCYTE ESTERASE NEG Leu/uL (Negative); URINE PROTEIN NEGATIVE (NEGATIVE); URINE UROBILINOGEN 0.2-1.0 mg/dL (0.2-1.0)
[2018-05-26 05:38] LABS: HEMOGLOBIN 9.2 g/dL (12.0-18.0); MEAN CELL VOLUME 93.3 fl (80.0-94.0); MEAN CORPUSCULAR HEMOGLOBIN 31.8 pg (27.0-31.0); MEAN CORPUSCULAR HGB CONC 34.1 g/dL (33.0-37.0); RBC 2.89 Mil/uL (4.40-5.90); WHITE BLOOD COUNT 4.4 K/uL (4.8-10.8)
[2018-05-26 05:39] LABS: ALB/GLOB RATIO 0.9 (1.0-2.1); ALBUMIN 2.9 g/dL (3.5-5.0); ALT/SGPT 126 U/L (21-72); AST/SGOT 121 U/L (17-59); BLOOD UREA NITROGEN 41 mg/dl (9-20); CALCIUM 8.5 mg/dL (8.4-10.2); GFR NON-AFRICAN AMERICAN > 60
[2018-05-26] MEDS ORDERED: Potassium Chloride 20 mEq/15 ml LIQ UD PO ONE (06:26)
--- NOTE | 2018-05-26 07:16 | CP.PCM.PN ---
Subjective - Date & Time of Evaluation Date of Evaluation: 05/26/18 Time of Evaluation: 08:34 - Subjective Subjective: Podiatry progress note for Dr. Kvng Snow 62 y/o male patient seen and evaluated in the bedside 7 weeks S/P ORIF R ankle for pain in his right ankle. Patient still complains of pain to the RLE at the incision sites. Patient noted he is ambulating with Physical therapy. Patient denies any recent f/n/v/c/sob/cp Objective - Vital Signs/Intake and Output Vital Signs (last 24 hours): Temp Pulse Resp BP Pulse Ox 98.0 F 68 14 113/68 96 05/26/18 00:00 05/26/18 06:00 05/26/18 06:00 05/26/18 06:00 05/26/18 06:00 Intake and Output: 05/26/18 05/26/18 06:59 18:59 Intake Total 3020 Output Total 1350 Balance 1670 - Medications Medications: Current Medications Heparin Sodium (Porcine) (Heparin) 5,000 units SC Q8 DAPHNE; Protocol Last Admin: 05/26/18 00:10 Dose: 5,000 units Hydrocortisone Sodium Succinate (Solu-Cortef) 100 mg IV Q8H DAPHNE Last Admin: 05/25/18 23:38 Dose: 100 mg Norepinephrine Bitartrate 4 mg (/ Dextrose) 254 mls @ 9.53 mls/hr IV .Q24H DAPHNE; Protocol Last Titration: 05/25/18 14:00 Dose: 0 mcg/min, 0 mls/hr Sodium Chloride (Sodium Chloride 0.9%) 1,000 mls @ 1,000 mls/hr IV .Q1H DAPHNE Stop: 05/26/18 07:26 Last Admin: 05/25/18 08:00 Dose: 1,000 mls/hr Sodium Bicarbonate 150 meq/ (Dextrose) 1,150 mls @ 150 mls/hr IV .Q7H40M DAPHNE Stop: 05/26/18 12:05 Last Admin: 05/25/18 23:57 Dose: 150 mls/hr Morphine Sulfate (Morphine) 2 mg IVP Q4 PRN PRN Reason: Pain, moderate (4-7) Morphine Sulfate (Morphine) 2 mg IVP Q4 PRN PRN Reason: Pain, severe (8-10) Last Admin: 05/26/18 00:03 Dose: 2 mg - Labs Labs: 05/26/18 04:30 05/26/18 04:30 PT 12.1 Seconds (9.8-13.1) 05/25/18 06:15 INR 1.1 05/25/18 06:15 APTT 36.9 Seconds (25.6-37.1) 05/25/18 06:15 - Constitutional Appears: Well, Non-toxic, No Acute Distress - Head Exam Head Exam: ATRAUMATIC, NORMOCEPHALIC - Extremities Exam Additional comments: Right Lower Extremity Exam VASC: DP/PT pulses palpable 2/4 bilaterally, Cap refill less than 3 secondsto all digits, Temp gradient warm to cool proximal to distal, No edema noted to the right ankle NEURO: epicritic and protective sensations both intact DERM: moderate non-pitting edema noted to the ankle, Surgical wounds are clean/dry and intact with no drainage, erythema or any sign of dehescience. MSK: Mild pain with ankle range of motion, mild pain on palpation along the perimalleolar area. Muscle power intact 5/5 to all groups. - Neurological Exam Neurological Exam: Alert, Awake, Oriented x3 - Psychiatric Exam Psychiatric exam: Normal Affect, Normal Mood Assessment and Plan - Assessment and Plan (Free Text) Assessment: 62 y/o male seen and evaluated in the bedside 7 weeks S/P ORIF R ankle for pain in his right ankle. Plan: Patient seen and evaluated at bedside in the ED Plan discussed with Dr. Snow Chart and vitals reviewed- afebrile, No leukocytosis Right Ankle X-rays: healing fractures distal right tibia and fibula Patient limited ambulation due to TLC atient bear weight OOBTC Conitnue PT evaluation and treatment. Podiatry will continue to follow up the patient while in house.
[2018-05-26] MEDS: Sodium Chloride 0.9% 1,000 ML IV SCH ×2 (08:10→22:10)
--- NOTE | 2018-05-26 08:10 | CON ---
DATE: 05/25/2018 RENAL CONSULTATION LOCATION: The patient is located in [facility] ICU, room 425. REQUESTED BY: Ricci Johnson MD REASON FOR RENAL CONSULTATION: Acute renal failure, rhabdomyolysis, and dehydration. HISTORY OF PRESENT ILLNESS: Mr. Ford is a 62-year-old elderly male with a past medical history significant for anemia, anxiety, arthritis, substance abuse, history of hypertension, and also status post right ankle surgery who was admitted to [facility]. After surgery, the patient was discharged to [facility] for about one and a half week and was supposed to go to subacute rehab, but the patient signed out AMA due to delay in the transfer and stating he needed to take care of his dying father. Apparently, the patient came back to the emergency room and he wanted to be transferred back to subacute rehab and due to weekend, unable to transfer and the patient was discharged and he came back with a chief complaint of taking a bunch of Tylenol with Codeine pills the night before the admission and complains of generalized weakness and lethargy. The patient was found to have acute renal failure, metabolic acidosis with elevated LFTs, and admitted to ICU, started on Mucomyst, IV [id number]-cysteine. The patient is drowsy, arousable, following commands appropriately. Denies any chest pain or palpitation. Denies any fever, cough. Denies any abdominal pain. No nausea, no vomiting, no diarrhea. No cough. No shortness of breath. No edema of the legs. No urinary symptoms. PAST MEDICAL HISTORY: Significant for hypertension, questionable hyperlipidemia. Denies any diabetes. Denies any heart problems. Denies any CVA. PAST SURGICAL HISTORY: Bilateral hernia repair and also appendectomy and status post right ankle surgery. ALLERGIES: NO KNOWN DRUG ALLERGIES. SOCIAL HISTORY: Denies any smoking. The patient has complaints of alcohol use. Denies any drug abuse. PERSONAL HISTORY: He is single and he has 3 children. FAMILY HISTORY: Not significant. He has one brother and one sister. CURRENT MEDICATIONS: Include as follows; [id number]-cysteine 8.16 g in one liter at 65 mL per hour and subcu heparin 5000 units every 8 hours, and norepinephrine p.r.n. and sodium bicarbonate at 150 mL per hour alternating with normal saline. The patient received about 4 liters of normal saline IV fluids and also Solu-Cortef 100 mg IV every 8 hours. REVIEW OF SYSTEMS: Significant for lethargy, dehydration and acute renal failure. All other review of systems are reviewed and are negative. PHYSICAL EXAMINATION: VITAL SIGNS: As follows: This morning, blood pressure is 117/69, pulse 68, respirations 12, temperature 98, and saturation 98%. Height is 5 feet 7 inches and weight is 180 pounds. GENERAL: Mr. Ford is a 62-year-old elderly male, moderately built, moderately nourished, not in acute distress. HEENT: Pupils are normal and reactive to light and accommodation. Conjunctivae pink. Sclerae anicteric. Tongue is dry. Trachea is midline. LUNGS: Symmetric on both sides. Bilateral breath sounds present. Clear to auscultation. CARDIOVASCULAR SYSTEM: Gill at the fifth intercostal space, midclavicular line. S1 and S2 audible. No murmur or gallop. ABDOMEN: Normal in appearance. The patient has a scar in bilateral inguinal area and also right lower quadrant. Abdomen is soft and tympanitic. No guarding. No rigidity. No hepatosplenomegaly. CENTRAL NERVOUS SYSTEM: The patient is drowsy, arousable, following commands appropriately. EXTREMITIES: No cyanosis, no clubbing, no edema. The patient has a scar on the right ankle. LABORATORY DATA: Includes as follows: As of 05/25/2018, WBC 6.2, hemoglobin 10.4, hematocrit is 30.8, platelets 199. D-dimer is 932, PT 12.1, PTT 36.9. VBG; pH 7.09, and pCO2 of 33, pO2 of 84. ABG; pH 7.29, and pCO2 of 33, pO2 of 84, bicarb is 17.4, saturation 97.8 on room air. Sodium 133, potassium 4.3, chloride 98. CO2 of 19, BUN 85, creatinine 4.4, glucose 113, calcium 9.1, total bili 0.4, AST 349, ALT 186, alkaline phos is 116, ammonia 21, total protein 7.3, albumin 3.8. CPK is 7931 and troponin 0.017. Repeat BMP this morning, BUN 76/3.1 creatinine and this evening his BUN and creatinine 60/1.8, and AST 199, ALT 159, alkaline phosphatase is 84. Urinalysis, yellow, clear, pH 5, specific gravity 1.014. Total protein negative. Ketones negative. Blood negative. Nitrites negative. Bilirubin negative. Urobilinogen negative. Leukocyte esterase negative and rbc 20, wbc 2, and urine osmolality 420. Urine creatinine 44.3, urine sodium is 61, and urine potassium is 19.7. Urine tox screen positive for benzodiazepine and Tylenol level is less than 10 and alcohol level is less than 10. Chest x-ray, 05/25/2018, no definite pulmonary edema appreciation, crowding of the bronchovascular markings is favored over the limited left hilar infiltrate. Linear atelectasis or fibrosis unchanged, left base. CT of the head as of 05/25/2018, no acute intracranial abnormality. No significant findings to account for the clinical presentation. No significant interval change compared to the prior examinations. X-ray of the ankle as of 05/25/2018, healing fracture of the distal right tibia and fibula. ASSESSMENT AND PLAN: In summary, Mr. Ford is a 62-year-old male with a history of hypertension, anxiety, hyperlipidemia, status post injury to the right leg, status post surgery for the right ankle for fracture of the distal fibula and tibia, was admitted with weakness and questionable intake of Tylenol with Codeine and elevated blood urea nitrogen and creatinine and decreased by mouth intake. There is poor skin turgor. 1. Nonoliguric acute renal failure, most likely secondary to acute tubular necrosis, secondary to rhabdomyolysis. 2. Dehydration. 3. Rhabdomyolysis. 4. Transaminitis. Continue intravenous fluids, normal saline alternating with D5W with 150 mEq sodium bicarbonate and 150 mL per hour. Repeat basic metabolic profile and creatine phosphokinase level in morning and urine for myoglobin and urine lytes, osmolality, creatinine was done. Case discussed with Dr. Katz. Case discussed with Dr. Johnson in rounds. Thank you for allowing me to participate in your patient's care. Mahnaz Shankar MD JAELYN
--- NOTE | 2018-05-26 09:45 | CP.PCM.PN ---
Subjective - Date & Time of Evaluation Date of Evaluation: 05/26/18 Time of Evaluation: 09:44 - Subjective Subjective: pt is seen and examined, follow up consult is dictated #[id number] Objective - Vital Signs/Intake and Output Vital Signs (last 24 hours): Temp Pulse Resp BP Pulse Ox 98.1 F 75 14 124/75 93 L 05/26/18 07:55 05/26/18 07:55 05/26/18 07:55 05/26/18 07:55 05/26/18 07:55 Intake and Output: 05/26/18 05/26/18 06:59 18:59 Intake Total 3020 300 Output Total 1350 100 Balance 1670 200 - Medications Medications: Current Medications Heparin Sodium (Porcine) (Heparin) 5,000 units SC Q8 DAPHNE; Protocol Last Admin: 05/26/18 08:02 Dose: 5,000 units Hydrocortisone Sodium Succinate (Solu-Cortef) 100 mg IV Q8H [facility] Last Admin: 05/26/18 08:02 Dose: 100 mg Sodium Bicarbonate 150 meq/ (Dextrose) 1,150 mls @ 150 mls/hr IV .Q7H40M [facility] Stop: 05/26/18 12:05 Last Admin: 05/25/18 23:57 Dose: 150 mls/hr Morphine Sulfate (Morphine) 2 mg IVP Q4 PRN PRN Reason: Pain, moderate (4-7) Morphine Sulfate (Morphine) 2 mg IVP Q4 PRN PRN Reason: Pain, severe (8-10) Last Admin: 05/26/18 00:03 Dose: 2 mg - Labs Labs: 05/26/18 04:30 05/26/18 04:30 PT 12.1 Seconds (9.8-13.1) 05/25/18 06:15 INR 1.1 05/25/18 06:15 APTT 36.9 Seconds (25.6-37.1) 05/25/18 06:15
--- NOTE | 2018-05-26 12:17 | CP.PCM.PN ---
Subjective - Date & Time of Evaluation Date of Evaluation: 05/26/18 Time of Evaluation: 12:17 - Subjective Subjective: ALERT AND AWAKE OOB TO CHAIR VSS Objective - Vital Signs/Intake and Output Vital Signs (last 24 hours): Temp Pulse Resp BP Pulse Ox 98.5 F 70 16 127/71 95 05/26/18 12:00 05/26/18 12:00 05/26/18 12:00 05/26/18 12:00 05/26/18 12:00 Intake and Output: 05/26/18 05/26/18 06:59 18:59 Intake Total 3020 300 Output Total 1350 100 Balance 1670 200 - Medications Medications: Current Medications Heparin Sodium (Porcine) (Heparin) 5,000 units SC Q8 DAPHNE; Protocol Last Admin: 05/26/18 08:02 Dose: 5,000 units Hydrocortisone Sodium Succinate (Solu-Cortef) 100 mg IV Q8H DAPHNE Last Admin: 05/26/18 08:02 Dose: 100 mg Ketorolac Tromethamine (Toradol) 30 mg IVP Q6 PRN PRN Reason: Pain, moderate (4-7) Stop: 05/29/18 11:07 Morphine Sulfate (Morphine) 2 mg IVP Q4 PRN PRN Reason: Pain, severe (8-10) Last Admin: 05/26/18 10:49 Dose: 2 mg - Labs Labs: 05/26/18 04:30 05/26/18 04:30 PT 12.1 Seconds (9.8-13.1) 05/25/18 06:15 INR 1.1 05/25/18 06:15 APTT 36.9 Seconds (25.6-37.1) 05/25/18 06:15 - Constitutional Appears: No Acute Distress - Head Exam Head Exam: ATRAUMATIC, NORMAL INSPECTION, NORMOCEPHALIC - Eye Exam Eye Exam: EOMI, Normal appearance, PERRL Pupil Exam: NORMAL ACCOMODATION, PERRL - ENT Exam ENT Exam: Mucous Membranes Moist, Normal Exam - Neck Exam Neck Exam: Full ROM, Normal Inspection. absent: Lymphadenopathy - Respiratory Exam Respiratory Exam: Clear to Ausculation Bilateral, NORMAL BREATHING PATTERN - Cardiovascular Exam Cardiovascular Exam: REGULAR RHYTHM, +S1, +S2. absent: Murmur - GI/Abdominal Exam GI & Abdominal Exam: Soft, Normal Bowel Sounds. absent: Tenderness - Rectal Exam Rectal Exam: NORMAL INSPECTION - Extremities Exam Extremities Exam: Full ROM, Normal Capillary Refill, Tenderness. absent: Joint Swelling, Pedal Edema Additional comments: R LEG IN BOOT - Back Exam Back Exam: NORMAL INSPECTION - Neurological Exam Neurological Exam: Alert, Awake, CN II-XII Intact, Normal Gait, Oriented x3 - Psychiatric Exam Psychiatric exam: Normal Affect, Normal Mood - Skin Skin Exam: Dry, Intact, Normal Color, Warm Assessment and Plan - Assessment and Plan (Free Text) Assessment: DRUG OD--IMPROVED METABOLIC ACIDOSIS IMPROVED RENAL FAILURE IMPROVED S/P R FOOT/ANKLE SURGERY Plan: CONTINUE CURRENT RX TRANSFER TO TELE
--- NOTE | 2018-05-26 14:10 | CP.CCUPN ---
CCU Subjective - Physician Review Events Since Last Encounter (Free Text): 05/26/18 14:02 alert and oriented, feeling better, still has some ankle pain. CCU Objective - Vital Signs / Intake & Output Vital Signs (Last 4 hours): Vital Signs Temp Pulse Resp BP Pulse Ox 05/26/18 12:00 98.5 F 70 16 127/71 95 Intake and Output (Last 8hrs): Intake & Output 05/25/18 05/26/18 05/26/18 22:59 06:59 14:59 Intake Total 2260 1820 300 Output Total 2000 350 100 Balance 260 1470 200 Weight 174 lb 9.6 oz Intake: IV 1460 1720 300 Intake, Piggyback 460 Oral 340 100 Output: Urine 2000 350 100 Urethral (Kendrick) 1000 350 100 Urine, Voided 1000 Other: # Bowel Movements 1 - Physical Exam Head: Positive for: Atraumatic, Normocephalic Pupils: Positive for: PERRL Extroacular Muscles: Positive for: EOMI Conjunctiva: Positive for: Normal Mouth: Positive for: Moist Mucous Membranes Neck: Positive for: Normal Range of Motion Respiratory/Chest: Positive for: Clear to Auscultation, Good Air Exchange Cardiovascular: Positive for: Regular Rate and Rhythm Abdomen: Positive for: Normal Bowel Sounds. Negative for: Tenderness, Distention Upper Extremity: Positive for: Normal Inspection Lower Extremity: Positive for: Other (RLE wrappe in gauze, edematous) Neurological: Positive for: GCS=15, CN II-XII Intact, Speech Normal (slurring is chronic with mechanical dysfunction) Psychiatric: Positive for: Alert, Oriented x 3 - Medications Active Medications: Active Medications Generic Name Dose Route Start Last Admin Trade Name Freq PRN Reason Stop Dose Admin Heparin Sodium (Porcine) 5,000 units 05/25/18 09:00 05/26/18 08:02 Heparin SC 5,000 units Q8 DAPHNE Administration Protocol Hydrocortisone Sodium Succinate 100 mg 05/25/18 07:45 05/26/18 08:02 Solu-Cortef IV 100 mg Q8H DAPHNE Administration Ketorolac Tromethamine 30 mg 05/26/18 11:06 Toradol IVP 05/29/18 11:07 Q6 PRN Pain, moderate (4-7) Morphine Sulfate 2 mg 05/25/18 23:50 05/26/18 10:49 Morphine IVP 2 mg Q4 PRN Administration Pain, severe (8-10) - Patient Studies Lab Studies: Microbiology Studies 05/25/18 02:11 Urine Culture - Final Urine Random No Growth (<1,000 CFU/ML) 05/25/18 07:45 Blood Culture - Preliminary Blood NO GROWTH AFTER 24 HOURS 05/25/18 00:30 Blood Culture - Preliminary Blood NO GROWTH AFTER 24 HOURS Lab Studies 05/26/18 05/26/18 05/25/18 Range/Units 04:30 04:30 23:12 WBC 4.4 L (4.8-10.8) K/uL RBC 2.89 L (4.40-5.90) Mil/uL Hgb 9.2 L (12.0-18.0) g/dL Hct 27.0 L (35.0-51.0) % MCV 93.3 (80.0-94.0) fl MCH 31.8 H (27.0-31.0) pg MCHC 34.1 (33.0-37.0) g/dL RDW 14.0 (11.5-14.5) % Plt Count 177 (130-400) K/uL Sodium 138 (132-148) mmol/l Potassium 3.3 L (3.6-5.0) MMOL/L Chloride 102 (98-107) mmol/L Carbon Dioxide 27 (22-30) mmol/L Anion Gap 12 (10-20) BUN 41 H (9-20) mg/dl Creatinine 0.9 (0.8-1.5) mg/dl Est GFR ( Amer) > 60 Est GFR (Non-Af Amer) > 60 Random Glucose 218 H (75-110) mg/dL Calcium 8.5 (8.4-10.2) mg/dL Phosphorus (2.5-4.5) mg/dl Magnesium (1.6-2.3) MG/DL Total Bilirubin 0.3 (0.2-1.3) mg/dl AST 121 H D (17-59) U/L ALT 126 H D (21-72) U/L Alkaline Phosphatase 100 (38-126) U/L Total Creatine Kinase 1379 H (55-170) U/L Total Protein 6.1 L (6.3-8.2) G/DL Albumin 2.9 L (3.5-5.0) g/dL Globulin 3.2 (2.2-3.9) gm/dL Albumin/Globulin Ratio 0.9 L (1.0-2.1) Vitamin B12 (239-931) pg/mL Folate ng/mL Urine Color (YELLOW) Urine Clarity (Clear) Urine pH (5.0-8.0) Ur Specific [place] (1.003-1.030) Urine Protein (NEGATIVE) mg/dL Urine Glucose (UA) (NEGATIVE) mg/dL Urine Ketones (NEGATIVE) mg/dL Urine Blood (NEGATIVE) Urine Nitrate (NEGATIVE) Urine Bilirubin (NEGATIVE) Urine Urobilinogen (0.2-1.0) mg/dL Ur Leukocyte Esterase (Negative) Kaylee/uL Urine RBC (Auto) (0-3) /hpf Urine Microscopic WBC (0-5) /hpf Urine Osmolality (300-1000) mosm/kg Ur Random Creatinine mg/dL Ur Random Sodium 27 meq/L Ur Random Potassium 49.3 mmol/L 05/25/18 05/25/18 05/25/18 Range/Units 23:12 14:50 14:50 WBC (4.8-10.8) K/uL RBC (4.40-5.90) Mil/uL Hgb (12.0-18.0) g/dL Hct (35.0-51.0) % MCV (80.0-94.0) fl MCH (27.0-31.0) pg MCHC (33.0-37.0) g/dL RDW (11.5-14.5) % Plt Count (130-400) K/uL Sodium (132-148) mmol/l Potassium (3.6-5.0) MMOL/L Chloride (98-107) mmol/L Carbon Dioxide (22-30) mmol/L Anion Gap (10-20) BUN (9-20) mg/dl Creatinine (0.8-1.5) mg/dl Est GFR ( Amer) Est GFR (Non-Af Amer) Random Glucose (75-110) mg/dL Calcium (8.4-10.2) mg/dL Phosphorus (2.5-4.5) mg/dl Magnesium (1.6-2.3) MG/DL Total Bilirubin (0.2-1.3) mg/dl AST (17-59) U/L ALT (21-72) U/L Alkaline Phosphatase (38-126) U/L Total Creatine Kinase (55-170) U/L Total Protein (6.3-8.2) G/DL Albumin (3.5-5.0) g/dL Globulin (2.2-3.9) gm/dL Albumin/Globulin Ratio (1.0-2.1) Vitamin B12 (239-931) pg/mL Folate ng/mL Urine Color Yellow (YELLOW) Urine Clarity Clear (Clear) Urine pH 5.0 (5.0-8.0) Ur Specific [place] 1.014 (1.003-1.030) Urine Protein Negative (NEGATIVE) mg/dL Urine Glucose (UA) Neg (NEGATIVE) mg/dL Urine Ketones Negative (NEGATIVE) mg/dL Urine Blood Moderate (NEGATIVE) Urine Nitrate Negative (NEGATIVE) Urine Bilirubin Negative (NEGATIVE) Urine Urobilinogen 0.2-1.0 (0.2-1.0) mg/dL Ur Leukocyte Esterase Neg (Negative) Kaylee/uL Urine RBC (Auto) 20 H (0-3) /hpf Urine Microscopic WBC 2 (0-5) /hpf Urine Osmolality 420 (300-1000) mosm/kg Ur Random Creatinine 44.3 mg/dL Ur Random Sodium 61 meq/L Ur Random Potassium 19.7 mmol/L 05/25/18 Range/Units 13:10 WBC (4.8-10.8) K/uL RBC (4.40-5.90) Mil/uL Hgb (12.0-18.0) g/dL Hct (35.0-51.0) % MCV (80.0-94.0) fl MCH (27.0-31.0) pg MCHC (33.0-37.0) g/dL RDW (11.5-14.5) % Plt Count (130-400) K/uL Sodium 141 (132-148) mmol/l Potassium 4.4 (3.6-5.0) MMOL/L Chloride 111 H (98-107) mmol/L Carbon Dioxide 16 L (22-30) mmol/L Anion Gap 18 (10-20) BUN 60 H (9-20) mg/dl Creatinine 1.8 H (0.8-1.5) mg/dl Est GFR ( Amer) 46 Est GFR (Non-Af Amer) 38 Random Glucose 161 H (75-110) mg/dL Calcium 8.5 (8.4-10.2) mg/dL Phosphorus 5.3 H (2.5-4.5) mg/dl Magnesium 2.0 (1.6-2.3) MG/DL Total Bilirubin 0.4 (0.2-1.3) mg/dl AST 199 H D (17-59) U/L ALT 159 H (21-72) U/L Alkaline Phosphatase 84 (38-126) U/L Total Creatine Kinase (55-170) U/L Total Protein 7.0 (6.3-8.2) G/DL Albumin 3.5 (3.5-5.0) g/dL Globulin 3.5 (2.2-3.9) gm/dL Albumin/Globulin Ratio 1.0 (1.0-2.1) Vitamin B12 716 (239-931) pg/mL Folate 15.3 ng/mL Urine Color (YELLOW) Urine Clarity (Clear) Urine pH (5.0-8.0) Ur Specific [place] (1.003-1.030) Urine Protein (NEGATIVE) mg/dL Urine Glucose (UA) (NEGATIVE) mg/dL Urine Ketones (NEGATIVE) mg/dL Urine Blood (NEGATIVE) Urine Nitrate (NEGATIVE) Urine Bilirubin (NEGATIVE) Urine Urobilinogen (0.2-1.0) mg/dL Ur Leukocyte Esterase (Negative) Kaylee/uL Urine RBC (Auto) (0-3) /hpf Urine Microscopic WBC (0-5) /hpf Urine Osmolality (300-1000) mosm/kg Ur Random Creatinine mg/dL Ur Random Sodium meq/L Ur Random Potassium mmol/L Laboratory Results - last 24 hr 05/25/18 05/25/18 05/25/18 13:10 14:50 14:50 WBC RBC Hgb Hct MCV MCH MCHC RDW Plt Count Sodium 141 Potassium 4.4 Chloride 111 H Carbon Dioxide 16 L Anion Gap 18 BUN 60 H Creatinine 1.8 H Est GFR ( Amer) 46 Est GFR (Non-Af Amer) 38 Random Glucose 161 H Calcium 8.5 Phosphorus 5.3 H Magnesium 2.0 Total Bilirubin 0.4 AST 199 H D ALT 159 H Alkaline Phosphatase 84 Total Creatine Kinase Total Protein 7.0 Albumin 3.5 Globulin 3.5 Albumin/Globulin Ratio 1.0 Vitamin B12 716 Folate 15.3 Urine Color Urine Clarity Urine pH Ur Specific [place] Urine Protein Urine Glucose (UA) Urine Ketones Urine Blood Urine Nitrate Urine Bilirubin Urine Urobilinogen Ur Leukocyte Esterase Urine RBC (Auto) Urine Microscopic WBC Urine Osmolality 420 Ur Random Creatinine 44.3 Ur Random Sodium 61 Ur Random Potassium 19.7 05/25/18 05/25/18 05/26/18 23:12 23:12 04:30 WBC 4.4 L RBC 2.89 L Hgb 9.2 L Hct 27.0 L MCV 93.3 MCH 31.8 H MCHC 34.1 RDW 14.0 Plt Count 177 Sodium Potassium Chloride Carbon Dioxide Anion Gap BUN Creatinine Est GFR ( Amer) Est GFR (Non-Af Amer) Random Glucose Calcium Phosphorus Magnesium Total Bilirubin AST ALT Alkaline Phosphatase Total Creatine Kinase Total Protein Albumin Globulin Albumin/Globulin Ratio Vitamin B12 Folate Urine Color Yellow Urine Clarity Clear Urine pH 5.0 Ur Specific [place] 1.014 Urine Protein Negative Urine Glucose (UA) Neg Urine Ketones Negative Urine Blood Moderate Urine Nitrate Negative Urine Bilirubin Negative Urine Urobilinogen 0.2-1.0 Ur Leukocyte Esterase Neg Urine RBC (Auto) 20 H Urine Microscopic WBC 2 Urine Osmolality Ur Random Creatinine Ur Random Sodium 27 Ur Random Potassium 49.3 05/26/18 04:30 WBC RBC Hgb Hct MCV MCH MCHC RDW Plt Count Sodium 138 Potassium 3.3 L Chloride 102 Carbon Dioxide 27 Anion Gap 12 BUN 41 H Creatinine 0.9 Est GFR ( Amer) > 60 Est GFR (Non-Af Amer) > 60 Random Glucose 218 H Calcium 8.5 Phosphorus Magnesium Total Bilirubin 0.3 AST 121 H D ALT 126 H D Alkaline Phosphatase 100 Total Creatine Kinase 1379 H Total Protein 6.1 L Albumin 2.9 L Globulin 3.2 Albumin/Globulin Ratio 0.9 L Vitamin B12 Folate Urine Color Urine Clarity Urine pH Ur Specific [place] Urine Protein Urine Glucose (UA) Urine Ketones Urine Blood Urine Nitrate Urine Bilirubin Urine Urobilinogen Ur Leukocyte Esterase Urine RBC (Auto) Urine Microscopic WBC Urine Osmolality Ur Random Creatinine Ur Random Sodium Ur Random Potassium Radiology Impressions: Radiology Impressions Ankle X-Ray 05/25/18 12:48 IMPRESSION: Healing fractures distal right tibia and fibula. Review of Systems - Review of Systems All systems: reviewed and no additional remarkable complaints except - Musculoskeletal Additional comments: RLE pain Critical Care Progress Note - Nutrition Nutrition: Nutrition Category Date Time Status Renal Diet [DIET] Diets 05/25/18 Dinner Active Assessment/Plan (1) Rhabdomyolysis Assessment and plan: 62yo M. PMHX Etoh abuse, PTSD, recent righ ankle fracture. p/w rhabdomyolysis, hypotension and acute transaminitis. Neuro: alert and oriented x 3, toradol for moderate pain, morphine for severe pain. Pulm: no acute issues, breathing spontaneously on room air. CV: hemodynamically stable Hem: no acute issues Renal: NS@150 for rhabdo. urine output within normal limitis. ZURI from rhabdo, monitoring BUN/Cr, currently downtrending. Finished a course of N- Acetylcysteine for possible acetaminophen toxicity. Endo: no acute issues GI: possible acetominophen overdose, patient admitted to taking a lot of Tylenol #3, administered NAC. transaminits could also be secondary to acute alcoholic hepatitis, started on hydrocortisone. Transaminitis most likely secondary to severe rhabdomyolysis, levels downtrending. ID: no acute issues DVT proph - heparin sq GI proph - not currently indicated Code status - full code Critical Care time spent 35 minutes Multi-disciplinary rounds were performed with house staff, nursing, speech therapy, respiratory therapy, pharmacy and nutrition with integrated input from the primary team/attending and other consulting services. The documented time is cumulative and includes review of patient data/exams/labs/chart review and examination of the patient on rounds and throughout the day; time is exclusive of any procedures or teaching time. Current Visit: Yes Status: Acute
--- NOTE | 2018-05-26 14:39 | PN ---
DATE: 05/26/2018 LOCATION: The patient is in [facility] in ICU room 425, bed 1. REQUESTED BY: Ricci Johnson MD REASON FOR FOLLOWUP: Acute renal failure and rhabdomyolysis. HISTORY OF PRESENT ILLNESS: Mr. Ford is a 62-year-old elderly male with history of anemia, anxiety, arthritis, chronic pain, status post neck surgery about 6 weeks ago who is status post injury to the right leg, status post surgery for distal fracture of the tibia and fibula few weeks ago in [facility] and subsequently went to [facility] from there. He signed out AMA after one and a half weeks and came back. 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 The patient is admitted back to ICU with chief complaints of weakness, taken a bunch of Tylenol tablets with Codeine the night before and unable to get up and weakness and lethargy. The patient was found to have increased CPK level, elevated LFTs and also acute renal failure, dehydration, admitted to ICU and started on Mucomyst and also on IV fluids initially, recent normal saline about 4 liters IV fluids in the emergency room. Subsequently started on IV fluids normal saline at 150 mL per hour. The patient is not in acute distress. The patient is more alert, awake, following commands appropriately. Now complains of pain on the right side of the inframandibular area with slight swelling. Denies any chest pain, palpitation. Denies any fever, cough. No abdominal pain. No nausea, vomiting or diarrhea. PHYSICAL EXAMINATION: VITAL SIGNS: This morning, blood pressure 124/75, pulse 75, respirations 14, temperature 98.1, saturation 93%. Height 5 feet. Weight is 174 pounds. GENERAL: Mr. Ford is a 62-year-old elderly male, well-built, well-nourished, not in distress. HEENT: Pupils are normal and reactive to light and accommodation. Conjunctivae pink. Sclerae anicteric. Tongue is moist. Trachea is midline. The patient is having slight swelling on the right side of the neck, inframandibular area with a scar about 1 cm. LUNGS: Symmetrical on both sides. Bilateral breath sounds present. Clear to auscultation. CARDIOVASCULAR SYSTEM: [place] at the fifth intercostal space, midclavicular line. S1 and S2 audible. No murmur or gallop. ABDOMEN: Normal in appearance. Soft, tympanic. No guarding. No rigidity. No hepatosplenomegaly. CENTRAL NERVOUS SYSTEM: The patient is alert, awake, and oriented x3. Nonfocal neuro examination. Cranial nerves II through XII grossly intact. Sensory and motor system is within normal limits. EXTREMITIES: No cyanosis, no clubbing, no edema. CURRENT MEDICATIONS: Include as follows; subcutaneous heparin 5000 every 8 hours and morphine 2 mg IV every 4 hours p.r.n. and IV fluids normal saline at 150 mL per hour and Solu-Cortef 100 mg IV every 8 hours. LABORATORY DATA: Include as follows as of 05/26/2018; WBC 4.4, hemoglobin 9.2, hematocrit 27, platelets 177. Sodium 138, potassium 3.3, chloride 102, CO2 of 27, BUN 41, creatinine 0.9, glucose 218, calcium 8.5. Total bilirubin 0.3, AST 121, ALT 126, alkaline phosphatase 100, CPK 1379, total protein 6.1, albumin 2.9 and as of 05/25/2018 Tylenol level is less than 10 and alcohol level less than 10 and salicylate level is less than 1. ASSESSMENT AND PLAN: Mr. Ford is a 62-year-old elderly male with history of hypertension, hyperlipidemia, arthritis, anemia, status post neck surgery about 6 weeks ago and also status post right ankle surgery for the distal tibia and fibula fracture, was admitted with weakness and taking a bunch of Tylenol with Codeine tablets for the pain, elevated LFTs and elevated CPK levels and increased BUN and creatinine and low bicarbonate. 1. Nonoliguric acute renal failure, most likely secondary to combination of acute tubular necrosis secondary to rhabdomyolysis and intravascular volume depletion. 3. Dehydration, improving. 4. Hypokalemia. 5. Transaminitis. LFTs are improving, most likely secondary to rhabdomyolysis, doubt Tylenol toxicity. PLAN: Discontinue his sodium bicarb and continue IV fluids normal saline at 150 mL per hour for another 24 hours. We will follow with you. Consider p.o. or IV antibiotic for cellulitis of the right side of the neck. This patient is in [facility] ICU room 425. Thank you for allowing me to participate in your patient's care. Mahnaz Shankar MD [facility] # [id number]
[2018-05-27 06:31] LABS: HEMOGLOBIN 9.9 g/dL (12.0-18.0); MEAN CORPUSCULAR HEMOGLOBIN 31.9 pg (27.0-31.0); MEAN CORPUSCULAR HGB CONC 33.6 g/dL (33.0-37.0); RBC 3.1 Mil/uL (4.40-5.90); RED CELL DISTRIBUTION WIDTH 14.2 % (11.5-14.5); WHITE BLOOD COUNT 6.6 K/uL (4.8-10.8)
[2018-05-27 06:39] LABS: BLOOD UREA NITROGEN 40 mg/dl (9-20); CALCIUM 8.3 mg/dL (8.4-10.2); GFR NON-AFRICAN AMERICAN > 60
[2018-05-27] MEDS ORDERED: Potassium Chloride 20 mEq ER Tab PO ONE (08:16)
[2018-05-27 08:41] LABS: ALT/SGPT 101 U/L (21-72); AST/SGOT 92 U/L (17-59)
--- NOTE | 2018-05-27 10:25 | CP.PCM.PN ---
Subjective - Date & Time of Evaluation Date of Evaluation: 05/27/18 Time of Evaluation: 10:27 - Subjective Subjective: CLINICALLY IMPROVING MORE AWAKE AND ALERT C/O R FOOT PAIN LABS DEPICT DRAMATIC IMPROVEMENT OF HEPATIC AND RENAL FUNCTIONS VSS Objective - Vital Signs/Intake and Output Vital Signs (last 24 hours): Temp Pulse Resp BP Pulse Ox 97.7 F 58 L 14 118/75 92 L 05/27/18 08:00 05/27/18 08:00 05/27/18 08:00 05/27/18 08:00 05/27/18 08:00 Intake and Output: 05/27/18 05/27/18 06:59 18:59 Intake Total 1350 300 Output Total 1350 Balance 0 300 - Medications Medications: Current Medications Heparin Sodium (Porcine) (Heparin) 5,000 units SC Q8 DAPHNE; Protocol Last Admin: 05/27/18 08:59 Dose: 5,000 units Sodium Chloride (Sodium Chloride 0.9%) 1,000 mls @ 150 mls/hr IV .Q6H40M DAPHNE Stop: 05/27/18 14:19 Last Admin: 05/26/18 22:10 Dose: 150 mls/hr Ketorolac Tromethamine (Toradol) 30 mg IVP Q6 PRN PRN Reason: Pain, moderate (4-7) Stop: 05/29/18 11:07 Last Admin: 05/27/18 06:08 Dose: 30 mg Morphine Sulfate (Morphine) 2 mg IVP Q4 PRN PRN Reason: Pain, severe (8-10) Last Admin: 05/26/18 23:47 Dose: 2 mg - Labs Labs: 05/27/18 04:30 05/27/18 04:30 PT 12.1 Seconds (9.8-13.1) 05/25/18 06:15 INR 1.1 05/25/18 06:15 APTT 36.9 Seconds (25.6-37.1) 05/25/18 06:15 - Constitutional Appears: No Acute Distress - Head Exam Head Exam: ATRAUMATIC, NORMAL INSPECTION, NORMOCEPHALIC - Eye Exam Eye Exam: EOMI, Normal appearance, PERRL Pupil Exam: NORMAL ACCOMODATION, PERRL - ENT Exam ENT Exam: Mucous Membranes Moist, Normal Exam - Neck Exam Neck Exam: Full ROM, Normal Inspection. absent: Lymphadenopathy - Respiratory Exam Respiratory Exam: Clear to Ausculation Bilateral, NORMAL BREATHING PATTERN - Cardiovascular Exam Cardiovascular Exam: REGULAR RHYTHM, +S1, +S2. absent: Murmur - GI/Abdominal Exam GI & Abdominal Exam: Soft, Normal Bowel Sounds. absent: Tenderness - Rectal Exam Rectal Exam: NORMAL INSPECTION - Extremities Exam Extremities Exam: Full ROM, Normal Capillary Refill, Tenderness. absent: Joint Swelling, Pedal Edema Additional comments: R FOOT/ANKLE TENDERNESS--IN A BOOT - Back Exam Back Exam: NORMAL INSPECTION - Neurological Exam Neurological Exam: Alert, Awake, CN II-XII Intact, Normal Gait, Oriented x3 - Psychiatric Exam Psychiatric exam: Normal Affect, Normal Mood - Skin Skin Exam: Dry, Intact, Normal Color, Warm Assessment and Plan - Assessment and Plan (Free Text) Assessment: DRUG OD HEPATORENAL FAILURE--IMPROVED RHABDOMYOLYSIS--IMPROVING S/P R FOOT/ANKLE SURGERY ANEMIA Plan: CONTINUE CURRENT RX SPORTS ANALYST FOR SUBACUTE CARE
[2018-05-27] MEDS: Sodium Chloride 0.9% 1,000 ML IV SCH ×2 (13:01→19:38)
--- NOTE | 2018-05-27 15:01 | CP.PCM.PN ---
Subjective - Date & Time of Evaluation Date of Evaluation: 05/27/18 Time of Evaluation: 15:01 - Subjective Subjective: pt is seen and examined, follow up consult is dictated #[id number] Objective - Vital Signs/Intake and Output Vital Signs (last 24 hours): Temp Pulse Resp BP Pulse Ox 98.5 F 69 14 144/74 89 L 05/27/18 12:00 05/27/18 12:00 05/27/18 12:00 05/27/18 12:00 05/27/18 12:00 Intake and Output: 05/27/18 05/27/18 06:59 18:59 Intake Total 1350 1600 Output Total 1350 600 Balance 0 1000 - Medications Medications: Current Medications Heparin Sodium (Porcine) (Heparin) 5,000 units SC Q8 DAPHNE; Protocol Last Admin: 05/27/18 08:59 Dose: 5,000 units Ketorolac Tromethamine (Toradol) 30 mg IVP Q6 PRN PRN Reason: Pain, moderate (4-7) Stop: 05/29/18 11:07 Last Admin: 05/27/18 06:08 Dose: 30 mg Morphine Sulfate (Morphine) 2 mg IVP Q4 PRN PRN Reason: Pain, severe (8-10) Last Admin: 05/27/18 12:57 Dose: 2 mg - Labs Labs: 05/27/18 04:30 05/27/18 04:30 PT 12.1 Seconds (9.8-13.1) 05/25/18 06:15 INR 1.1 05/25/18 06:15 APTT 36.9 Seconds (25.6-37.1) 05/25/18 06:15
--- NOTE | 2018-05-27 16:07 | PN ---
DATE: 05/27/2018 SUBJECTIVE: The patient in ICU bed 425. Time spent 35 minutes. The patient is seen and evaluated at the bedside. Past medical, surgical, family and social history reviewed. Consultants and PMD's notes reviewed. A 62-year-old male with medical history significant for chronic neck and back pain, alcohol abuse, posttraumatic stress disorder, status post recent admission on 05/01/2018 with right ankle fracture, discharged to [facility] on 05/04/2018 after ORIF. Readmitted on 05/24/2018 complaining of lethargy, noted to have rhabdomyolysis, on IV hydration. Seen by Neurology. No further neurological intervention recommended. Overnight, afebrile. Normotensive, more awake, alert, follows commands appropriate. PHYSICAL EXAMINATION: VITAL SIGNS: Temperature 97.7, heart rate 58 to 61 regular, blood pressure 118/75, mean arterial pressure 89, respiratory rate 14, saturation 92% to 93% on room air. Intake 4260, output 2500, positive balance 1760. HEAD, EYES, EARS, NOSE AND THROAT: Atraumatic and normocephalic. Pupils are reactive. Conjunctivae pink. Sclerae are white. NECK: Supple. LUNGS: Bilateral breath sounds, clear to auscultation. HEART: Rhythm regular. S1, S2 normal. ABDOMEN: Bowel sounds are present. Soft. EXTREMITIES: Upper extremity normal. Right lower extremity wrapped in gauze with 1+ edema. NEUROLOGIC: Lawrence coma scale 50. No cranial nerve deficit. No sensory or motor deficit. PSYCHIATRIC: Oriented to name, place and time. CURRENT MEDICATIONS: Sodium chloride at 150 mL per hour, morphine 2 mg IV every 4 hours p.r.n., Toradol 30 mL IV every 6 hours p.r.n., heparin 5000 units subcu every 8 hours. LABORATORY DATA: WBC 6.6, hemoglobin 9.9, hematocrit 29.4, platelet count of 125. PT 12.1, INR 1.1, PTT 36.9. Lactate of 0.8. SMA-7: Sodium 137, potassium 3.3, chloride 100, CO2 of 24, blood urea nitrogen of 40, creatinine 1, random glucose 96, calcium 8.3, magnesium 2. Total bilirubin of 0.3, AST 92, ALT 101, CK 530, albumin 2.9. Urine analysis, leuko esterase negative, RBC 20. Toxicology screen, Tylenol level less than 10, otherwise negative. Microbiology: Nasal smear negative. Blood culture negative. Urine culture negative. X-ray of the ankle done on 05/25/2018, healing fracture, distal right tibia and fibula. Head CT done on 05/25/2018, no acute intracranial abnormality. Chest x-ray, no definite pulmonary edema, crowding of the bronchovascular markings. IMPRESSION: A 62-year-old male with history significant for ethanol abuse, posttraumatic stress disorder, chronic neck and back pain, status post recent right ankle fracture, admitted with rhabdomyolysis, hypertension and acute transaminitis. Neuro: Now alert, awake, oriented x3. Toradol for moderate pain and morphine for severe pain. Pulmonary: No acute issues. Breathing spontaneously on room air. Cardiovascular: Normotensive. Hematology: No acute issues. Renal: Continue intravenous fluid for rhabdomyolysis. BUN and creatinine normalized, status post n-acetylcysteine for possible acetaminophen toxicity. Endocrine. No acute issues. Gastrointestinal: Possible Tylenol overdose, status post n-acetylcysteine, liver enzymes trending down. Infectious Disease: No acute issues. Keep head of bed 30 degrees up, deep vein thrombosis prophylaxis, gastrointestinal prophylaxis not currently indicated. Code status: Full. Encouraged not to take narcotics to prevent narcotic dependence. Luis Miguel Duarte MD
--- NOTE | 2018-05-28 05:16 | PN ---
DATE: 05/27/2018 FOLLOWUP RENAL CONSULTATION LOCATION: The patient is located in [facility] ICU, room 425, bed 1. REQUESTED BY: Ricci Johnson MD HISTORY OF PRESENT ILLNESS: Mr. Ford is a 62-year-old elderly male with a past medical history of significant anemia, anxiety, arthritis, chronic pain, substance abuse, history of hypertension, questionable hyperlipidemia, status post fall, status post right foot surgery, status post surgery for the fracture of the distal tibia and fibula and also surgery for the neck who was admitted with chief complaints of weakness and dehydration and found to have acute renal failure and increased LFTs and elevated CPK level. The patient was initially started on Mucomyst and [id number]-cysteine for possible Tylenol overdose. The patient is not feeling better. Renal function is improving. Good urine output. Complains of pain in the leg. No chest pain. No palpitation. No fever, no cough, no abdominal pain. The patient also complains of pain on the right side of the neck and swelling. PHYSICAL EXAMINATION: VITAL SIGNS: His vital signs are as follows: Blood pressure 144/74, pulse 72, respirations 14, temperature 98.5, saturation 98%. Height 5 feet 7 inches, weight is 174 pounds. GENERAL: Mr. Ford is a 62-year-old male, well-built, well-nourished, not in acute distress. HEENT: Pupils are normal and reactive to light and accommodation. Conjunctivae pink. Sclerae anicteric. Tongue is enlarged. Trachea is midline. LUNGS: Symmetrical on both sides. Bilateral breath sounds present. Clear to auscultation. CARDIOPULMONARY: [place] at the fifth intercostal space, midclavicular line. S1 and S2 audible. No murmur or gallop. ABDOMEN: Normal in appearance. Soft, tympanic. No guarding. No rigidity. No hepatosplenomegaly. CENTRAL NERVOUS SYSTEM: The patient is alert, awake, and oriented x3. Nonfocal neuro examination. Cranial nerves II through XII grossly intact. Sensory and motor system is within normal limits. EXTREMITIES: No cyanosis, no clubbing, no edema. The patient has a scar on the right ankle. MEDICATIONS: His current medication include as follows: Ambien 10 mg at bedtime and benazepril with hydrochlorothiazide 20/12.5 mg one tablet daily, Zanaflex 4 mg p.o. at bedtime, prazosin 2 mg p.o. at bedtime, Cymbalta 60 mg p.o. daily, Valium 10 mg p.o. b.i.d., and Percocet 1 tablet p.o. every 6 hours. LABORATORY DATA: Includes as follows: As of 05/27/2018: WBC 6.6, hemoglobin 9.9, hematocrit is 29.4, platelets of 125. Sodium 137, potassium 3.3, chloride 100, CO2 of 24, BUN 40, creatinine 1, glucose 96, calcium 8.3. CPK 530 and AST 92, ALT 101. ASSESSMENT AND PLAN: In summary, Mr. Ford is a 62-year-old elderly male with the history of hypertension, hyperlipidemia, anxiety, and status post surgery for the neck and also right ankle who was admitted after taking bunch of Tylenol with codeine tablets and suspected Tylenol overdose and elevated LFTs, CPKs, and increased BUN and creatinine, and dehydration. 1. Nonoliguric acute renal failure. Continue intravenous fluids. 2. Status post rhabdomyolysis. CPK levels are improving. Continue hydration. Encourage oral fluid intake. 3. Hypokalemia. I agree with the potassium supplement. 4. Transaminitis, most likely secondary to rhabdomyolysis. We will continue his current medication and liver function tests are improving nicely. Thank you for allowing me to participate in your patient's care. Continue analgesics as per primary care physician, Dr. Johnson. Mahnaz Shankar MD
[2018-05-28 06:17] LABS: HEMOGLOBIN 9.8 g/dL (12.0-18.0); MEAN CELL VOLUME 94.6 fl (80.0-94.0); MEAN CORPUSCULAR HEMOGLOBIN 31.5 pg (27.0-31.0); MEAN CORPUSCULAR HGB CONC 33.3 g/dL (33.0-37.0); RBC 3.11 Mil/uL (4.40-5.90)
[2018-05-28 06:33] LABS: ALBUMIN 3.1 g/dL (3.5-5.0); ALT/SGPT 102 U/L (21-72); AST/SGOT 65 U/L (17-59); BLOOD UREA NITROGEN 29 mg/dl (9-20); CALCIUM 8.9 mg/dL (8.4-10.2); GFR NON-AFRICAN AMERICAN > 60
[2018-05-28] MEDS ORDERED: Albuterol-Ipratrop 3 mg / 0.5 (3 ml) UD INH STA (06:47)
--- NOTE | 2018-05-28 07:50 | CP.CCUPN ---
CCU Subjective - Physician Review Subjective (Free Text): 05/28/18 17:05 The patient was Seen/interviewed and examined by me at the bedside during ICU round, Medical records reviewed and Management issues were discussed and formulated with the house staff. Events reviewed Patient is 62 years old male with past medical history of an hypertension, anxiety/depression, anemia, arthritis, back problems/fractures and PTSD Who presented to the emergency room stating he realized he was unable to take care of self due to his disability, was unable to get in and out of his home, he was found with altered mental status apparently he took large number of Tylenol with Codeine Tab the night before admission In the emergency room he was hypotensive with blood pressure of 73/33, tachycardic, labs significant for acute kidney injury, elevated AST and ALT Patient admitted to the intensive care unit for altered mental status secondary to toxic metabolic encephalopathy, multifactorial mostly from uremia, hypotension, hypovolemia, dehydration, acute kidney injury Head CAT scan noted for no acute intracranial pathology, He was started on aggressive IV hydration, he received 2 L of IV fluid bolus in the emergency room and was continued on 150 mL/h, Hospital course also noted from transaminitis which could be secondary to acute alcoholic hepatitis, and possible acetaminophen overdose Patient status post administration of P-icmylg-A-cysteine This morning the patient is alert awake oriented x3, he is in mild dyspnea and tachypnea and his chest x-ray was noted for new left lower lobe infiltrate and possible mild pulmonary venous congestion Patient is started of intravenous antibiotic with IV vancomycin and IV Zosyn, And 2 sets of blood cultures sent He received 20 milligram Lasix intravenous and started on bronchodilator and nebulizer every 6 hours Oxygen requirement is up to 40% Via Ventimask CCU Objective - Vital Signs / Intake & Output Vital Signs (Last 4 hours): Vital Signs Temp Pulse Resp BP Pulse Ox 05/28/18 07:29 97.7 F 82 18 161/95 H 98 05/28/18 07:24 84 05/28/18 06:30 102 H 170/107 H 05/28/18 06:00 73 21 170/107 H 97 05/28/18 04:00 97.5 F L 79 24 162/99 H 96 Intake and Output (Last 8hrs): Intake & Output 03/17/19 03/18/19 03/18/19 22:59 06:59 14:59 Intake Total 1200 1740 210 Output Total 1125 1860 500 Balance 75 -120 -290 Weight 194 lb 3.2 oz Intake: IV 900 1200 150 Oral 300 540 60 Output: Urine 1125 1860 500 Urine, Voided 1125 1860 500 Other: # Voids Urine, Voided 2 1 # Bowel Movements 1 - Physical Exam Head: Positive for: Atraumatic, Normocephalic Pupils: Positive for: PERRL Extroacular Muscles: Positive for: EOMI Conjunctiva: Positive for: Normal Mouth: Positive for: Moist Mucous Membranes Neck: Positive for: Normal Range of Motion, Trachea Midline. Negative for: Meningeal Signs, MIDLINE TENDERNESS, Paraspinal Tenderness, JVD, Lymphadenopathy, Bruit, Other Respiratory/Chest: Positive for: Good Air Exchange, Wheezes, Decreased Breath Sounds, Rales, Rhonchi, Tachypneic. Negative for: Clear to Auscultation, Retracting Cardiovascular: Positive for: Regular Rate and Rhythm Abdomen: Positive for: Normal Bowel Sounds. Negative for: Tenderness, Distention Upper Extremity: Positive for: Normal Inspection Lower Extremity: Positive for: Other (RLE wrappe in gauze, edematous) Neurological: Positive for: GCS=15, CN II-XII Intact, Speech Normal (slurring is chronic with mechanical dysfunction) Psychiatric: Positive for: Alert, Oriented x 3 - Medications Active Medications: Active Medications Generic Name Dose Route Start Last Admin Trade Name Freq PRN Reason Stop Dose Admin Amlodipine Besylate 10 mg 05/28/18 06:20 05/28/18 06:30 Norvasc PO 10 mg DAILY [facility] Administration Heparin Sodium (Porcine) 5,000 units 05/25/18 09:00 05/28/18 00:23 Heparin SC 5,000 units Q8 DAPHNE Administration Protocol Ketorolac Tromethamine 30 mg 05/26/18 11:06 05/27/18 06:08 Toradol IVP 05/29/18 11:07 30 mg Q6 PRN Administration Pain, moderate (4-7) Morphine Sulfate 2 mg 05/25/18 23:50 05/28/18 04:29 Morphine IVP 2 mg Q4 PRN Administration Pain, severe (8-10) - Patient Studies Lab Studies: Microbiology Studies 05/25/18 00:30 Blood Culture - Preliminary Blood NO GROWTH AFTER 3 DAYS 05/25/18 07:45 Blood Culture - Preliminary Blood NO GROWTH AFTER 48 HOURS Lab Studies 05/28/18 05/28/18 05/27/18 Range/Units 05:15 05:15 08:11 WBC 7.0 (4.8-10.8) K/uL RBC 3.11 L (4.40-5.90) Mil/uL Hgb 9.8 L (12.0-18.0) g/dL Hct 29.4 L (35.0-51.0) % MCV 94.6 H (80.0-94.0) fl MCH 31.5 H (27.0-31.0) pg MCHC 33.3 (33.0-37.0) g/dL RDW 14.0 (11.5-14.5) % Plt Count 169 (130-400) K/uL Sodium 142 (132-148) mmol/l Potassium 3.4 L (3.6-5.0) MMOL/L Chloride 103 (98-107) mmol/L Carbon Dioxide 26 (22-30) mmol/L Anion Gap 16 (10-20) BUN 29 H (9-20) mg/dl Creatinine 0.8 (0.8-1.5) mg/dl Est GFR ( Amer) > 60 Est GFR (Non-Af Amer) > 60 Random Glucose 95 (75-110) mg/dL Calcium 8.9 (8.4-10.2) mg/dL Total Bilirubin 0.3 (0.2-1.3) mg/dl AST 65 H D 92 H D (17-59) U/L ALT 102 H 101 H (21-72) U/L Alkaline Phosphatase 101 (38-126) U/L Total Creatine Kinase 476 H (55-170) U/L Total Protein 6.2 L (6.3-8.2) G/DL Albumin 3.1 L (3.5-5.0) g/dL Globulin 3.2 (2.2-3.9) gm/dL Albumin/Globulin Ratio 1.0 (1.0-2.1) 05/27/18 Range/Units 04:30 WBC (4.8-10.8) K/uL RBC (4.40-5.90) Mil/uL Hgb (12.0-18.0) g/dL Hct (35.0-51.0) % MCV (80.0-94.0) fl MCH (27.0-31.0) pg MCHC (33.0-37.0) g/dL RDW (11.5-14.5) % Plt Count 125 L D (130-400) K/uL Sodium (132-148) mmol/l Potassium (3.6-5.0) MMOL/L Chloride (98-107) mmol/L Carbon Dioxide (22-30) mmol/L Anion Gap (10-20) BUN (9-20) mg/dl Creatinine (0.8-1.5) mg/dl Est GFR ( Amer) Est GFR (Non-Af Amer) Random Glucose (75-110) mg/dL Calcium (8.4-10.2) mg/dL Total Bilirubin (0.2-1.3) mg/dl AST (17-59) U/L ALT (21-72) U/L Alkaline Phosphatase (38-126) U/L Total Creatine Kinase (55-170) U/L Total Protein (6.3-8.2) G/DL Albumin (3.5-5.0) g/dL Globulin (2.2-3.9) gm/dL Albumin/Globulin Ratio (1.0-2.1) Laboratory Results - last 24 hr 05/27/18 05/27/18 05/28/18 04:30 08:11 05:15 WBC RBC Hgb Hct MCV MCH MCHC RDW Plt Count 125 L D Sodium 142 Potassium 3.4 L Chloride 103 Carbon Dioxide 26 Anion Gap 16 BUN 29 H Creatinine 0.8 Est GFR ( Amer) > 60 Est GFR (Non-Af Amer) > 60 Random Glucose 95 Calcium 8.9 Total Bilirubin 0.3 AST 92 H D 65 H D ALT 101 H 102 H Alkaline Phosphatase 101 Total Creatine Kinase 476 H Total Protein 6.2 L Albumin 3.1 L Globulin 3.2 Albumin/Globulin Ratio 1.0 05/28/18 05:15 WBC 7.0 RBC 3.11 L Hgb 9.8 L Hct 29.4 L MCV 94.6 H MCH 31.5 H MCHC 33.3 RDW 14.0 Plt Count 169 Sodium Potassium Chloride Carbon Dioxide Anion Gap BUN Creatinine Est GFR ( Amer) Est GFR (Non-Af Amer) Random Glucose Calcium Total Bilirubin AST ALT Alkaline Phosphatase Total Creatine Kinase Total Protein Albumin Globulin Albumin/Globulin Ratio Review of Systems - Cardiovascular Cardiovascular: absent: Chest Pain, Chest Pain at Rest, Chest Pain with Activity - Respiratory Respiratory: Cough, Dyspnea. absent: Hemoptysis Critical Care Progress Note - Extremities/Vascular Does the Patient have a Central Venous Catheter?: No Does the Patient need a Central Venous Catheter?: No Does the Patient have a Kendrick Catheter?: No Does the Patient need a Kendrick Catheter?: No - Nutrition Nutrition: Nutrition Category Date Time Status Renal Diet [DIET] Diets 05/25/18 Dinner Active Assessment/Plan (1) Toxic metabolic encephalopathy Current Visit: Yes Status: Acute Priority: High Comment: Head CT on admission is negative Patient currently alert awake and oriented x3 Continue frequent neuro checks Avoid narcotics if possible Morphine only for severe pain (2) LLL pneumonia Current Visit: Yes Status: Acute Priority: High Comment: Patient is started of intravenous antibiotic with IV vancomycin and IV Zosyn, And 2 sets of blood cultures sent Suplemetal Oxygen to keep sat >94% (3) ZURI (acute kidney injury) Current Visit: Yes Status: Acute Priority: High Comment: Improving Acute kidney injury from rhabdomyolysis continue patient on aggressive hydration with isotonic fluid Close monitoring of renal function, avoid all nephrotoxic medication (4) Transaminitis Current Visit: Yes Status: Acute Priority: High Comment: Hospital course also noted from transaminitis which could be secondary to acute alcoholic hepatitis, and possible acetaminophen overdose Patient status post administration of [id number]-cysteine Also rhabdomyolysis could be contributing Liver enzymes downtrending continue hydration (5) Opioid abuse Current Visit: No Status: Acute (6) Rhabdomyolysis Current Visit: Yes Status: Acute Priority: High
--- NOTE | 2018-05-28 09:02 | CP.PCM.PN ---
Subjective - Date & Time of Evaluation Date of Evaluation: 05/28/18 Time of Evaluation: 09:03 - Subjective Subjective: C/O MILD SOB TODAY DENIES COUGH OR CHEST PAINS Objective - Vital Signs/Intake and Output Vital Signs (last 24 hours): Temp Pulse Resp BP Pulse Ox 97.7 F 82 18 161/95 H 98 05/28/18 07:29 05/28/18 07:29 05/28/18 07:29 05/28/18 07:29 05/28/18 07:29 Intake and Output: 05/28/18 05/28/18 06:59 18:59 Intake Total 2340 210 Output Total 2535 500 Balance -195 -290 - Medications Medications: Current Medications Amlodipine Besylate (Norvasc) 10 mg PO DAILY DAPHNE Last Admin: 05/28/18 06:30 Dose: 10 mg Heparin Sodium (Porcine) (Heparin) 5,000 units SC Q8 DAPHNE; Protocol Last Admin: 05/28/18 08:16 Dose: 5,000 units Vancomycin HCl 1 gm/ Sodium (Chloride) 250 mls @ 250 mls/hr IVPB Q12H DAPHNE; Protocol Piperacillin Sod/Tazobactam (Sod 4.5 gm/ Sodium Chloride) 100 mls @ 100 mls/hr IVPB Q8 DAPHNE; Protocol Ketorolac Tromethamine (Toradol) 30 mg IVP Q6 PRN PRN Reason: Pain, moderate (4-7) Stop: 05/29/18 11:07 Last Admin: 05/27/18 06:08 Dose: 30 mg Morphine Sulfate (Morphine) 2 mg IVP Q4 PRN PRN Reason: Pain, severe (8-10) Last Admin: 05/28/18 08:36 Dose: 2 mg - Labs Labs: 05/28/18 05:15 05/28/18 05:15 PT 12.1 Seconds (9.8-13.1) 05/25/18 06:15 INR 1.1 05/25/18 06:15 APTT 36.9 Seconds (25.6-37.1) 05/25/18 06:15 - Constitutional Appears: In Acute Distress - Head Exam Head Exam: ATRAUMATIC, NORMAL INSPECTION, NORMOCEPHALIC - Eye Exam Eye Exam: EOMI, Normal appearance, PERRL Pupil Exam: NORMAL ACCOMODATION, PERRL - ENT Exam ENT Exam: Mucous Membranes Moist, Normal Exam - Neck Exam Neck Exam: Full ROM, Normal Inspection. absent: Lymphadenopathy - Respiratory Exam Respiratory Exam: Decreased Breath Sounds, Prolonged Expiratory Phase, Rales, NORMAL BREATHING PATTERN - Cardiovascular Exam Cardiovascular Exam: REGULAR RHYTHM, +S1, +S2. absent: Murmur - GI/Abdominal Exam GI & Abdominal Exam: Soft, Normal Bowel Sounds. absent: Tenderness - Rectal Exam Rectal Exam: NORMAL INSPECTION - Extremities Exam Extremities Exam: Full ROM, Normal Capillary Refill, Tenderness. 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
[2018-05-28] MEDS: Piperacillin/Tazobact 4.5 GM in Sodium Chloride 0.9% 100 ML IVPB SCH ×2 (09:30→16:10)
[2018-05-28] MEDS ORDERED: Albuterol-Ipratrop 3 mg / 0.5 (3 ml) UD INH PRN (10:18)
--- NOTE | 2018-05-28 11:55 | RAD ---
Date of service: 05/28/2018 HISTORY: SOB on exertion COMPARISON: 05/25/2018 FINDINGS: LUNGS: There is worsening pulmonary venous congestion. Bibasilar atelectasis. PLEURA: Worsening effusions, larger on the left. No pneumothorax. CARDIOVASCULAR: Persistent cardiomegaly. No aortic atherosclerotic calcifications present. OSSEOUS STRUCTURES: Within normal limits for the patient's age. VISUALIZED UPPER ABDOMEN: Normal. OTHER FINDINGS: None. IMPRESSION: Worsening congestive heart failure.
[2018-05-28] MEDS: Potassium CL 10 MEQ/50 ML 50 ML IVPB SCH ×2 (12:53→14:21)
--- NOTE | 2018-05-28 15:10 | CP.PCM.PN ---
Subjective - Date & Time of Evaluation Date of Evaluation: 05/28/18 Time of Evaluation: 15:05 - Subjective Subjective: Podiatry Progress Note: Dr. Kvng Snow Patient seen and evaluated in this AM for pain 7 weeks s/p R ankle ORIF. Patient resting comfortably in bed and in NAD. He states that he has no pain today to the right leg. He continues to participate in physical therapy. Denies nausea/vomiting/fever/chills. Objective - Vital Signs/Intake and Output Vital Signs (last 24 hours): Temp Pulse Resp BP Pulse Ox 98.1 F 92 H 22 130/77 95 05/28/18 10:00 05/28/18 14:00 05/28/18 14:00 05/28/18 14:00 05/28/18 14:00 Intake and Output: 05/28/18 05/28/18 06:59 18:59 Intake Total 2340 780 Output Total 2535 1300 Balance -195 -520 - Medications Medications: Current Medications Albuterol/Ipratropium (Duoneb 3 Mg/0.5 Mg (3 Ml) Ud) 3 ml INH RQ6 PRN PRN Reason: Shortness of Breath Last Admin: 05/28/18 10:31 Dose: 3 ml Amlodipine Besylate (Norvasc) 10 mg PO DAILY DAPHNE Last Admin: 05/28/18 06:30 Dose: 10 mg Heparin Sodium (Porcine) (Heparin) 5,000 units SC Q8 DAPHNE; Protocol Last Admin: 05/28/18 08:16 Dose: 5,000 units Vancomycin HCl 1 gm/ Sodium (Chloride) 250 mls @ 250 mls/hr IVPB Q12H DAPHNE; Protocol Last Admin: 05/28/18 09:29 Dose: 250 mls/hr Piperacillin Sod/Tazobactam (Sod 4.5 gm/ Sodium Chloride) 100 mls @ 100 mls/hr IVPB Q8 DAPHNE; Protocol Last Admin: 05/28/18 09:30 Dose: 100 mls/hr Ketorolac Tromethamine (Toradol) 30 mg IVP Q6 PRN PRN Reason: Pain, moderate (4-7) Stop: 05/29/18 11:07 Last Admin: 05/27/18 06:08 Dose: 30 mg Morphine Sulfate (Morphine) 2 mg IVP Q4 PRN PRN Reason: Pain, severe (8-10) Last Admin: 05/28/18 12:52 Dose: 2 mg Ondansetron HCl (Zofran Inj) 4 mg IVP Q6 PRN PRN Reason: Nausea/Vomiting Last Admin: 05/28/18 10:38 Dose: 4 mg - Labs Labs: 05/28/18 05:15 05/28/18 05:15 PT 12.1 Seconds (9.8-13.1) 05/25/18 06:15 INR 1.1 05/25/18 06:15 APTT 36.9 Seconds (25.6-37.1) 05/25/18 06:15 - Constitutional Appears: Non-toxic, No Acute Distress - Head Exam Head Exam: ATRAUMATIC, NORMOCEPHALIC - Extremities Exam Additional comments: Right Lower Extremity Exam Vasc: DP/PT pulses palpable 2/4 bilaterally, Cap refill less than 3 secondsto all digits, Temp gradient warm to cool proximal to distal, No edema noted to the right ankle Neuro: Gross and protective sensation intact Derm: moderate non-pitting edema noted to the ankle, Surgical wounds are clean/dry and intact with no drainage, erythema or any sign of dehescience. Ortho: Mild pain with ankle range of motion, mild pain on palpation along the perimalleolar area. Muscle power intact 5/5 to all groups. - Neurological Exam Neurological Exam: Alert, Awake - Psychiatric Exam Psychiatric exam: Normal Affect, Normal Mood Assessment and Plan - Assessment and Plan (Free Text) Assessment: Patient with pain 7 weeks s/p R ankle ORIF. Plan: Patient seen and evaluated at bedside in the ED Plan discussed with Dr. Snow Chart and vitals reviewed- afebrile, No leukocytosis Right Ankle X-rays: healing fractures distal right tibia and fibula Patient bear weight OOBTC Continue PT evaluation and treatment. Will continue to follow up the patient while in house.
[2018-05-29] MEDS: Piperacillin/Tazobact 4.5 GM in Sodium Chloride 0.9% 100 ML IVPB SCH ×3 (04:00→16:05)
[2018-05-29 05:26] LABS: HEMOGLOBIN 9.7 g/dL (12.0-18.0); MEAN CORPUSCULAR HEMOGLOBIN 31.4 pg (27.0-31.0); MEAN CORPUSCULAR HGB CONC 33.7 g/dL (33.0-37.0); RBC 3.11 Mil/uL (4.40-5.90); RED CELL DISTRIBUTION WIDTH 14.1 % (11.5-14.5); WHITE BLOOD COUNT 6.3 K/uL (4.8-10.8)
[2018-05-29 05:45] LABS: ALBUMIN 3.1 g/dL (3.5-5.0); ALT/SGPT 91 U/L (21-72); AST/SGOT 49 U/L (17-59); BLOOD UREA NITROGEN 15 mg/dl (9-20); CALCIUM 8.5 mg/dL (8.4-10.2); GFR NON-AFRICAN AMERICAN > 60
[2018-05-29] MEDS ORDERED: Potassium Chloride 20 mEq ER Tab PO ONE (06:13)
[2018-05-29] MEDS: Potassium CL 10 MEQ/50 ML 50 ML IVPB SCH ×2 (06:33→07:43)
--- NOTE | 2018-05-29 08:07 | RAD ---
Date of service: 05/29/2018 HISTORY: Protocol COMPARISON: Portable chest 05/28/2018. FINDINGS: LUNGS: Trace patchy atelectasis or infiltrate left base with none on the right. PLEURA: Pneumothorax bilaterally. Trace right pleural effusion. None on the left. CARDIOVASCULAR: No aortic atherosclerotic calcification present. Normal cardiac size. No pulmonary vascular congestion. OSSEOUS STRUCTURES: Anterior inferior cervical spinal fusion hardware again evident. VISUALIZED UPPER ABDOMEN: Surgical clips again noted left upper quadrant abdomen. Stable elevation left hemidiaphragm noted. OTHER FINDINGS: None. IMPRESSION: Limited residual patchy atelectasis or infiltrate left base with trace right pleural effusion evident. No pulmonary vascular congestion. Overall improvement in aeration of the bilateral lung bases.
[2018-05-29] MEDS ORDERED: Sodium Chloride 3% for Inhalation 4 ML VIAL.NEB IH PRN (09:44)
--- NOTE | 2018-05-29 09:47 | CP.PCM.PN ---
Subjective - Date & Time of Evaluation Date of Evaluation: 05/29/18 Time of Evaluation: 09:51 - Subjective Subjective: STILL HAS SOME SOB VSS Objective - Vital Signs/Intake and Output Vital Signs (last 24 hours): Temp Pulse Resp BP Pulse Ox 98.4 F 93 H 31 H 118/68 95 05/29/18 08:00 05/29/18 09:00 05/29/18 09:00 05/29/18 09:00 05/29/18 09:00 Intake and Output: 05/29/18 05/29/18 06:59 18:59 Intake Total 380 50 Output Total 700 Balance -320 50 - Medications Medications: Current Medications Albuterol/Ipratropium (Duoneb 3 Mg/0.5 Mg (3 Ml) Ud) 3 ml INH RQ6 PRN PRN Reason: Shortness of Breath Last Admin: 05/28/18 10:31 Dose: 3 ml Amlodipine Besylate (Norvasc) 10 mg PO DAILY DAPHNE Last Admin: 05/29/18 08:28 Dose: 10 mg Heparin Sodium (Porcine) (Heparin) 5,000 units SC Q8 DAPHEN; Protocol Last Admin: 05/29/18 08:28 Dose: 5,000 units Vancomycin HCl 1 gm/ Sodium (Chloride) 250 mls @ 250 mls/hr IVPB Q12H DAPHNE; Protocol Last Admin: 05/29/18 08:50 Dose: 250 mls/hr Piperacillin Sod/Tazobactam (Sod 4.5 gm/ Sodium Chloride) 100 mls @ 100 mls/hr IVPB Q8 DAPHNE; Protocol Last Admin: 05/29/18 08:29 Dose: 100 mls/hr Ketorolac Tromethamine (Toradol) 30 mg IVP Q6 PRN PRN Reason: Pain, moderate (4-7) Stop: 05/29/18 11:07 Last Admin: 05/29/18 07:45 Dose: 30 mg Morphine Sulfate (Morphine) 2 mg IVP Q4 PRN PRN Reason: Pain, severe (8-10) Last Admin: 05/29/18 03:59 Dose: 2 mg Ondansetron HCl (Zofran Inj) 4 mg IVP Q6 PRN PRN Reason: Nausea/Vomiting Last Admin: 05/28/18 10:38 Dose: 4 mg Potassium Chloride (K-Dur 20 Meq Er Tab) 20 meq PO DAILY DAPHNE - Labs Labs: 05/29/18 04:25 05/29/18 04:25 PT 12.1 Seconds (9.8-13.1) 05/25/18 06:15 INR 1.1 05/25/18 06:15 APTT 36.9 Seconds (25.6-37.1) 05/25/18 06:15 - Constitutional Appears: No Acute Distress - Head Exam Head Exam: ATRAUMATIC, NORMAL INSPECTION, NORMOCEPHALIC - Eye Exam Eye Exam: EOMI, Normal appearance, PERRL Pupil Exam: NORMAL ACCOMODATION, PERRL - ENT Exam ENT Exam: Mucous Membranes Moist, Normal Exam - Neck Exam Neck Exam: Full ROM, Normal Inspection. absent: Lymphadenopathy - Respiratory Exam Respiratory Exam: Decreased Breath Sounds, Prolonged Expiratory Phase, Rales, NORMAL BREATHING PATTERN - Cardiovascular Exam Cardiovascular Exam: REGULAR RHYTHM, +S1, +S2. absent: Murmur - GI/Abdominal Exam GI & Abdominal Exam: Soft, Normal Bowel Sounds. absent: Tenderness - Rectal Exam Rectal Exam: NORMAL INSPECTION - Extremities Exam Extremities Exam: Full ROM, Normal Capillary Refill, Normal Inspection. absent: Joint Swelling, Pedal Edema - Back Exam Back Exam: NORMAL INSPECTION - Neurological Exam Neurological Exam: Alert, Awake, CN II-XII Intact, Normal Gait, Oriented x3 - Psychiatric Exam Psychiatric exam: Normal Affect, Normal Mood - Skin Skin Exam: Dry, Intact, Normal Color, Warm Assessment and Plan - Assessment and Plan (Free Text) Assessment: PNEUMONIA RHABDOMYOLYSIS AND HEPATORENAL SYNDROME--IMPROVED ACUTE KIDNEY FAILURE RESOLVED Plan: CONTINUE CURRENT RX
[2018-05-29] MEDS: Potassium Chloride 20 mEq ER Tab PO SCH (10:03)
--- NOTE | 2018-05-29 10:03 | CP.PCM.PN ---
Subjective - Date & Time of Evaluation Date of Evaluation: 05/29/18 Time of Evaluation: 10:00 - Subjective Subjective: Podiatry Progress Note: Dr. Kvng Snow Patient seen and evaluated in this AM for pain 7 weeks s/p R ankle ORIF. Patient resting comfortably in bed, no acute distress. He reports mild pain to the R ankle at this time. Denies nausea/vomiting/fever/shortness of breath. Objective - Vital Signs/Intake and Output Vital Signs (last 24 hours): Temp Pulse Resp BP Pulse Ox 98.4 F 93 H 31 H 118/68 95 05/29/18 08:00 05/29/18 09:00 05/29/18 09:00 05/29/18 09:00 05/29/18 09:00 Intake and Output: 05/29/18 05/29/18 06:59 18:59 Intake Total 380 50 Output Total 700 Balance -320 50 - Medications Medications: Current Medications Albuterol/Ipratropium (Duoneb 3 Mg/0.5 Mg (3 Ml) Ud) 3 ml INH RQ6 PRN PRN Reason: Shortness of Breath Last Admin: 05/28/18 10:31 Dose: 3 ml Amlodipine Besylate (Norvasc) 10 mg PO DAILY DAPHNE Last Admin: 05/29/18 08:28 Dose: 10 mg Heparin Sodium (Porcine) (Heparin) 5,000 units SC Q8 DAPHNE; Protocol Last Admin: 05/29/18 08:28 Dose: 5,000 units Vancomycin HCl 1 gm/ Sodium (Chloride) 250 mls @ 250 mls/hr IVPB Q12H DAPHNE; Protocol Last Admin: 05/29/18 08:50 Dose: 250 mls/hr Piperacillin Sod/Tazobactam (Sod 4.5 gm/ Sodium Chloride) 100 mls @ 100 mls/hr IVPB Q8 DAPHNE; Protocol Last Admin: 05/29/18 08:29 Dose: 100 mls/hr Ketorolac Tromethamine (Toradol) 30 mg IVP Q6 PRN PRN Reason: Pain, moderate (4-7) Stop: 05/29/18 11:07 Last Admin: 05/29/18 07:45 Dose: 30 mg Morphine Sulfate (Morphine) 2 mg IVP Q4 PRN PRN Reason: Pain, severe (8-10) Last Admin: 05/29/18 03:59 Dose: 2 mg Ondansetron HCl (Zofran Inj) 4 mg IVP Q6 PRN PRN Reason: Nausea/Vomiting Last Admin: 05/28/18 10:38 Dose: 4 mg Potassium Chloride (K-Dur 20 Meq Er Tab) 20 meq PO DAILY DAPHNE - Labs Labs: 05/29/18 04:25 05/29/18 04:25 PT 12.1 Seconds (9.8-13.1) 05/25/18 06:15 INR 1.1 05/25/18 06:15 APTT 36.9 Seconds (25.6-37.1) 05/25/18 06:15 - Constitutional Appears: Non-toxic, No Acute Distress - Head Exam Head Exam: ATRAUMATIC, NORMOCEPHALIC - Extremities Exam Additional comments: Right Lower Extremity Exam Vasc: DP/PT pulses palpable 2/4 bilaterally, Cap refill less than 3 secondsto all digits, Temp gradient warm to cool proximal to distal, No edema noted to the right ankle Neuro: Gross and protective sensation intact Derm: moderate non-pitting edema noted to the ankle, Surgical wounds are clean/dry and intact with no drainage, erythema or any sign of dehiscence. Ortho: Mild pain with ankle range of motion, mild pain on palpation along the perimalleolar area. Muscle power intact 5/5 to all groups. - Neurological Exam Neurological Exam: Alert, Awake - Psychiatric Exam Psychiatric exam: Normal Affect, Normal Mood Assessment and Plan - Assessment and Plan (Free Text) Assessment: Patient with pain 7 weeks s/p R ankle ORIF. Plan: Patient seen and evaluated at bedside in the ED Plan discussed with Dr. Snow Afebrile, WBC 6.3 Right Ankle X-rays: healing fractures distal right tibia and fibula CAM boot ordered Patient bear weight OOBTC Patient may WBAT in CAM boot Continue PT evaluation and treatment Will continue to follow up the patient while in house.
--- NOTE | 2018-05-29 10:26 | CP.CCUPN ---
CCU Subjective - Physician Review Subjective (Free Text): 05/29/18 10:07 The patient was Seen/interviewed and examined by me at the bedside during ICU round, Medical records reviewed and Management issues were discussed and formulated with the house staff. Events reviewed Patient is 62 years old male with past medical history of an hypertension, anxiety/depression, anemia, arthritis, back problems/fractures and PTSD Who presented to the emergency room stating he realized he was unable to take care of self due to his disability, was unable to get in and out of his home, he was found with altered mental status apparently he took large number of Tylenol with Codeine Tab the night before admission In the emergency room he was hypotensive with blood pressure of 73/33, tachycardic, labs significant for acute kidney injury, elevated AST and ALT Patient admitted to the intensive care unit for altered mental status secondary to toxic metabolic encephalopathy, multifactorial mostly from uremia, hypotension, hypovolemia, dehydration, acute kidney injury Head CAT scan noted for no acute intracranial pathology, He was started on aggressive IV hydration, he received 2 L of IV fluid bolus in the emergency room and was continued on 150 mL/h, Hospital course also noted from transaminitis which could be secondary to acute alcoholic hepatitis, and possible acetaminophen overdose Patient status post administration of [id number]-cysteine Yesterday morning he was noted with dyspnea and tachypnea and his chest x-ray was noted for new left lower lobe infiltrate and possible mild pulmonary venous congestion Patient is started of intravenous antibiotic with IV vancomycin and IV Zosyn, And 2 sets of blood cultures were sent He received 20 milligram Lasix intravenous and started on bronchodilator and nebulizer every 6 hours Oxygen requirement is up to 40% Via Ventimask Gradual improvement of the respiratory status throughout the day This morning the patient is alert awake oriented x3, he is much less dyspnea and no tachypnea Awake, Comfortable, NAD Breathing unlabored, on 40% VM O2 sat 94-98%. CCU Objective - Vital Signs / Intake & Output Vital Signs (Last 4 hours): Vital Signs Temp Pulse Resp BP Pulse Ox 05/29/18 09:00 93 H 31 H 118/68 95 05/29/18 08:28 96 H 144/93 H 05/29/18 08:00 98.4 F 71 16 144/93 H 98 Intake and Output (Last 8hrs): Intake & Output 05/28/18 05/29/18 05/29/18 22:59 06:59 14:59 Intake Total 504 120 50 Output Total 200 700 Balance 304 -580 50 Weight 193 lb Intake: IV 34 20 Intake, Piggyback 350 100 50 Oral 120 Output: Urine 200 700 Urine, Voided 200 700 Other: # Bowel Movements 2 - Physical Exam Head: Positive for: Atraumatic, Normocephalic Pupils: Positive for: PERRL Extroacular Muscles: Positive for: EOMI Conjunctiva: Positive for: Normal Mouth: Positive for: Moist Mucous Membranes Neck: Positive for: Normal Range of Motion, Trachea Midline. Negative for: Meningeal Signs, MIDLINE TENDERNESS, Paraspinal Tenderness, JVD, Lymphadenopathy, Bruit, Other Respiratory/Chest: Positive for: Good Air Exchange, Wheezes, Decreased Breath Sounds, Rales, Rhonchi, Tachypneic. Negative for: Clear to Auscultation, Retracting Cardiovascular: Positive for: Regular Rate and Rhythm Abdomen: Positive for: Normal Bowel Sounds. Negative for: Tenderness, Distention Upper Extremity: Positive for: Normal Inspection Lower Extremity: Positive for: Other (RLE wrappe in gauze, edematous) Neurological: Positive for: GCS=15, CN II-XII Intact, Speech Normal (slurring is chronic with mechanical dysfunction) Psychiatric: Positive for: Alert, Oriented x 3 - Medications Active Medications: Active Medications Generic Name Dose Route Start Last Admin Trade Name Freq PRN Reason Stop Dose Admin Albuterol/Ipratropium 3 ml 05/28/18 10:18 05/28/18 10:31 Duoneb 3 Mg/0.5 Mg (3 Ml) Ud INH 3 ml RQ6 PRN Administration Shortness of Breath Amlodipine Besylate 10 mg 05/28/18 06:20 05/29/18 08:28 Norvasc PO 10 mg DAILY DAPHNE Administration Heparin Sodium (Porcine) 5,000 units 05/25/18 09:00 05/29/18 08:28 Heparin SC 5,000 units Q8 DAPHNE Administration Protocol Vancomycin HCl 1 gm/ Sodium 250 mls @ 250 mls/hr 05/28/18 08:00 05/29/18 08:50 Chloride IVPB 250 mls/hr Q12H DAPHNE Administration Protocol Piperacillin Sod/Tazobactam 100 mls @ 100 mls/hr 05/28/18 09:00 05/29/18 08:29 Sod 4.5 gm/ Sodium Chloride IVPB 100 mls/hr Q8 DAPHNE Administration Protocol Ketorolac Tromethamine 30 mg 05/26/18 11:06 05/29/18 07:45 Toradol IVP 05/29/18 11:07 30 mg Q6 PRN Administration Pain, moderate (4-7) Morphine Sulfate 2 mg 05/25/18 23:50 05/29/18 03:59 Morphine IVP 2 mg Q4 PRN Administration Pain, severe (8-10) Ondansetron HCl 4 mg 05/28/18 10:18 05/28/18 10:38 Zofran Inj IVP 4 mg Q6 PRN Administration Nausea/Vomiting Potassium Chloride 20 meq 05/29/18 09:45 05/29/18 10:03 K-Dur 20 Meq Er Tab PO 20 meq DAILY DAPHNE Administration - Patient Studies Lab Studies: Microbiology Studies 05/28/18 09:40 Blood Culture - Preliminary Blood-Venous NO GROWTH AFTER 24 HOURS 05/28/18 09:25 Blood Culture - Preliminary Blood-Venous NO GROWTH AFTER 24 HOURS 05/25/18 07:45 Blood Culture - Preliminary Blood NO GROWTH AFTER 4 DAYS 05/25/18 00:30 Blood Culture - Preliminary Blood NO GROWTH AFTER 4 DAYS Lab Studies 05/29/18 05/29/18 Range/Units 04:25 04:25 WBC 6.3 (4.8-10.8) K/uL RBC 3.11 L (4.40-5.90) Mil/uL Hgb 9.7 L (12.0-18.0) g/dL Hct 28.9 L (35.0-51.0) % MCV 93.0 (80.0-94.0) fl MCH 31.4 H (27.0-31.0) pg MCHC 33.7 (33.0-37.0) g/dL RDW 14.1 (11.5-14.5) % Plt Count 183 (130-400) K/uL Sodium 140 (132-148) mmol/l Potassium 3.1 L (3.6-5.0) MMOL/L Chloride 98 (98-107) mmol/L Carbon Dioxide 31 H (22-30) mmol/L Anion Gap 14 (10-20) BUN 15 (9-20) mg/dl Creatinine 0.9 (0.8-1.5) mg/dl Est GFR ( Amer) > 60 Est GFR (Non-Af Amer) > 60 Random Glucose 98 (75-110) mg/dL Calcium 8.5 (8.4-10.2) mg/dL Total Bilirubin 0.4 (0.2-1.3) mg/dl AST 49 (17-59) U/L ALT 91 H (21-72) U/L Alkaline Phosphatase 96 (38-126) U/L Total Protein 6.3 (6.3-8.2) G/DL Albumin 3.1 L (3.5-5.0) g/dL Globulin 3.1 (2.2-3.9) gm/dL Albumin/Globulin Ratio 1.0 (1.0-2.1) Laboratory Results - last 24 hr 05/29/18 05/29/18 04:25 04:25 WBC 6.3 RBC 3.11 L Hgb 9.7 L Hct 28.9 L MCV 93.0 MCH 31.4 H MCHC 33.7 RDW 14.1 Plt Count 183 Sodium 140 Potassium 3.1 L Chloride 98 Carbon Dioxide 31 H Anion Gap 14 BUN 15 Creatinine 0.9 Est GFR ( Amer) > 60 Est GFR (Non-Af Amer) > 60 Random Glucose 98 Calcium 8.5 Total Bilirubin 0.4 AST 49 ALT 91 H Alkaline Phosphatase 96 Total Protein 6.3 Albumin 3.1 L Globulin 3.1 Albumin/Globulin Ratio 1.0 Radiology Impressions: Radiology Impressions Chest X-Ray 05/28/18 05:54 IMPRESSION: Worsening congestive heart failure. Chest X-Ray 05/29/18 04:00 IMPRESSION: Limited residual patchy atelectasis or infiltrate left base with trace right pleural effusion evident. No pulmonary vascular congestion. Overall improvement in aeration of the bilateral lung bases. Fingerstick Blood Sugar Results: 133 Critical Care Progress Note - Extremities/Vascular Does the Patient have a Central Venous Catheter?: No Does the Patient need a Central Venous Catheter?: No Does the Patient have a Kendrick Catheter?: No Does the Patient need a Kendrick Catheter?: No - Nutrition Nutrition: Nutrition Category Date Time Status Renal Diet [DIET] Diets 05/25/18 Dinner Active Assessment/Plan (1) Toxic metabolic encephalopathy Current Visit: Yes Status: Acute Priority: High Comment: Head CT on admission is negative Patient currently alert awake and oriented x3 Continue frequent neuro checks Avoid narcotics if possible Morphine only for severe pain (2) LLL pneumonia Current Visit: Yes Status: Acute Priority: High Comment: Patient is started of intravenous antibiotic with IV vancomycin and IV Zosyn, And 2 sets of blood cultures sent Suplemetal Oxygen to keep sat >94% (3) ZURI (acute kidney injury) Current Visit: Yes Status: Acute Priority: High Comment: Improving Acute kidney injury from rhabdomyolysis continue patient on aggressive hydration with isotonic fluid Close monitoring of renal function, avoid all nephrotoxic medication (4) Transaminitis Current Visit: Yes Status: Acute Priority: High Comment: Hospital course also noted from transaminitis which could be secondary to acute alcoholic hepatitis, and possible acetaminophen overdose Patient status post administration of [id number]-cysteine Also rhabdomyolysis could be contributing Liver enzymes downtrending continue hydration (5) Opioid abuse Current Visit: No Status: Acute (6) Rhabdomyolysis Current Visit: Yes Status: Acute Priority: High
[2018-05-30] MEDS: Piperacillin/Tazobact 4.5 GM in Sodium Chloride 0.9% 100 ML IVPB SCH ×3 (01:11→16:22)
[2018-05-30 05:57] LABS: BLOOD UREA NITROGEN 10 mg/dl (9-20); CALCIUM 8.6 mg/dL (8.4-10.2); GFR NON-AFRICAN AMERICAN > 60
[2018-05-30] MEDS: Potassium Chloride 20 mEq ER Tab PO SCH (08:07)
--- NOTE | 2018-05-30 10:31 | CP.PCM.PN ---
Subjective - Date & Time of Evaluation Date of Evaluation: 05/30/18 Time of Evaluation: 10:32 - Subjective Subjective: c/o persistent r foot pain c/o poor sleep pattern and anxiety with ptsd symptoms Objective - Vital Signs/Intake and Output Vital Signs (last 24 hours): Temp Pulse Resp BP Pulse Ox 98.3 F 82 15 157/102 H 100 05/30/18 08:00 05/30/18 08:06 05/30/18 08:00 05/30/18 08:06 05/30/18 08:00 Intake and Output: 05/30/18 05/30/18 06:59 18:59 Intake Total 456 Output Total 800 Balance -344 - Medications Medications: Current Medications Albuterol/Ipratropium (Duoneb 3 Mg/0.5 Mg (3 Ml) Ud) 3 ml INH RQ6 PRN PRN Reason: Shortness of Breath Last Admin: 05/28/18 10:31 Dose: 3 ml Amlodipine Besylate (Norvasc) 10 mg PO DAILY [facility] Last Admin: 05/30/18 08:06 Dose: 10 mg Duloxetine HCl (Cymbalta) 60 mg PO DAILY [facility] Home Med (Benazepril/Hydrochlorothiazide [Benazepril-Hctz 20-12.5 Mg Tab]) 1 tab PO DAILY [facility] Vancomycin HCl 1 gm/ Sodium (Chloride) 250 mls @ 250 mls/hr IVPB Q12H [facility]; Protocol Last Admin: 05/30/18 08:14 Dose: 250 mls/hr Piperacillin Sod/Tazobactam (Sod 4.5 gm/ Sodium Chloride) 100 mls @ 100 mls/hr IVPB Q8 [facility]; Protocol Last Admin: 05/30/18 09:01 Dose: 100 mls/hr Morphine Sulfate (Morphine) 2 mg IVP Q4 PRN PRN Reason: Pain, severe (8-10) Last Admin: 05/30/18 08:06 Dose: 2 mg Ondansetron HCl (Zofran Inj) 4 mg IVP Q6 PRN PRN Reason: Nausea/Vomiting Last Admin: 05/28/18 10:38 Dose: 4 mg Potassium Chloride (K-Dur 20 Meq Er Tab) 20 meq PO DAILY [facility] Last Admin: 05/30/18 08:07 Dose: 20 meq Zolpidem Tartrate (Ambien) 5 mg PO HS PRN PRN Reason: Insomnia - Labs Labs: 05/29/18 04:25 05/30/18 05:05 PT 12.1 Seconds (9.8-13.1) 05/25/18 06:15 INR 1.1 05/25/18 06:15 APTT 36.9 Seconds (25.6-37.1) 05/25/18 06:15 - Constitutional Appears: Chronically Ill - Head Exam Head Exam: ATRAUMATIC, NORMAL INSPECTION, NORMOCEPHALIC - Eye Exam Eye Exam: EOMI, Normal appearance, PERRL Pupil Exam: NORMAL ACCOMODATION, PERRL - ENT Exam ENT Exam: Mucous Membranes Moist, Normal Exam - Neck Exam Neck Exam: Full ROM, Normal Inspection. absent: Lymphadenopathy - Respiratory Exam Respiratory Exam: Prolonged Expiratory Phase, Rales, NORMAL BREATHING PATTERN - Cardiovascular Exam Cardiovascular Exam: REGULAR RHYTHM, +S1, +S2. absent: Murmur - GI/Abdominal Exam GI & Abdominal Exam: Soft, Normal Bowel Sounds. absent: Tenderness - Rectal Exam Rectal Exam: NORMAL INSPECTION - Extremities Exam Extremities Exam: Full ROM, Normal Capillary Refill, Normal Inspection, Tenderness. absent: Joint Swelling, Pedal Edema Additional comments: r foot/ankle tenderness - Back Exam Back Exam: NORMAL INSPECTION - Neurological Exam Neurological Exam: Abnormal Gait, Alert, Awake, CN II-XII Intact, Oriented x3 - Psychiatric Exam Psychiatric exam: Anxious, Flat Affect - Skin Skin Exam: Dry, Intact, Normal Color, Warm Assessment and Plan - Assessment and Plan (Free Text) Assessment: drug od resolved pneumonia improving htn ptsd and anxiety/depression rhabdomyolysis resolved hepatorenal failure improved hypokalemia Plan: transfer to regular floor restart psych meds and antihypertensives analgesics for pain
--- NOTE | 2018-05-30 13:28 | RAD ---
Date of service: 05/30/2018 PROCEDURE: CHEST RADIOGRAPH, 1 VIEW HISTORY: PNEUMONIA COMPARISON: 05/29/2018 FINDINGS: LUNGS: No definite infiltrate. PLEURA: Small left pleural effusion, grossly unchanged. CARDIOVASCULAR: There is atherosclerotic calcification of the thoracic aortic arch. Normal heart size. OSSEOUS STRUCTURES: No significant abnormalities. VISUALIZED UPPER ABDOMEN: Normal. OTHER FINDINGS: None. IMPRESSION: Small left pleural effusion. No pulmonary infiltrate.
[2018-05-30] MEDS: Oxycodone/Acetaminophen 5/325 mg Tab PO PRN (16:26)
[2018-05-31] MEDS: Piperacillin/Tazobact 4.5 GM in Sodium Chloride 0.9% 100 ML IVPB SCH ×3 (00:16→16:45)
[2018-05-31] MEDS: Oxycodone/Acetaminophen 5/325 mg Tab PO PRN ×5 (03:30→23:07)
[2018-05-31 05:08] LABS: HEMOGLOBIN 9.8 g/dL (12.0-18.0); MEAN CELL VOLUME 94.6 fl (80.0-94.0); MEAN CORPUSCULAR HEMOGLOBIN 31.3 pg (27.0-31.0); MEAN CORPUSCULAR HGB CONC 33.1 g/dL (33.0-37.0); RBC 3.14 Mil/uL (4.40-5.90); RED CELL DISTRIBUTION WIDTH 14.3 % (11.5-14.5); WHITE BLOOD COUNT 5.2 K/uL (4.8-10.8)
[2018-05-31 05:29] LABS: ALB/GLOB RATIO 0.8 (1.0-2.1); ALBUMIN 2.6 g/dL (3.5-5.0); ALT/SGPT 66 U/L (21-72); AST/SGOT 46 U/L (17-59); CALCIUM 8.4 mg/dL (8.4-10.2); GFR NON-AFRICAN AMERICAN > 60
[2018-05-31 05:35] LABS: BLOOD UREA NITROGEN 10 mg/dl (9-20)
[2018-05-31] MEDS ORDERED: Potassium Chloride 20 mEq/15 ml LIQ UD PO ONE (07:15)
--- NOTE | 2018-05-31 08:30 | CP.PCM.PN ---
Subjective - Date & Time of Evaluation Date of Evaluation: 05/31/18 Time of Evaluation: 08:30 - Subjective Subjective: Podiatry Progress Note: Dr. Kvng Snow Patient seen and evaluated in this AM for pain 4 weeks s/p R ankle ORIF. Patient resting comfortably in bed, no acute distress. He reports mild pain to the R ankle at this time, stating it feels stiff. Denies nausea/vomiting/fever/shortness of breath. Objective - Vital Signs/Intake and Output Vital Signs (last 24 hours): Temp Pulse Resp BP Pulse Ox 97.4 F L 77 13 153/80 H 92 L 05/31/18 08:00 05/31/18 08:00 05/31/18 08:00 05/31/18 08:00 05/31/18 08:00 Intake and Output: 05/31/18 05/31/18 06:59 18:59 Intake Total 844 Output Total 1100 Balance -256 - Medications Medications: Current Medications Albuterol/Ipratropium (Duoneb 3 Mg/0.5 Mg (3 Ml) Ud) 3 ml INH RQ6 PRN PRN Reason: Shortness of Breath Last Admin: 05/28/18 10:31 Dose: 3 ml Alprazolam (Xanax) 0.25 mg PO Q12 PRN PRN Reason: Anxiety Stop: 06/06/18 10:26 Last Admin: 05/30/18 23:08 Dose: 0.25 mg Amlodipine Besylate (Norvasc) 10 mg PO DAILY [facility] Last Admin: 05/30/18 08:06 Dose: 10 mg Duloxetine HCl (Cymbalta) 60 mg PO DAILY [facility] Last Admin: 05/30/18 11:14 Dose: 60 mg Hydrochlorothiazide (Microzide) 12.5 mg PO DAILY [facility] Last Admin: 05/30/18 11:13 Dose: 12.5 mg Vancomycin HCl 1 gm/ Sodium (Chloride) 250 mls @ 250 mls/hr IVPB Q12H [facility]; Protocol Last Admin: 05/30/18 20:50 Dose: 250 mls/hr Piperacillin Sod/Tazobactam (Sod 4.5 gm/ Sodium Chloride) 100 mls @ 100 mls/hr IVPB Q8 [facility]; Protocol Last Admin: 05/31/18 00:16 Dose: 100 mls/hr Lisinopril (Zestril) 20 mg PO DAILY [facility] Last Admin: 05/30/18 11:13 Dose: 20 mg Morphine Sulfate (Morphine) 2 mg IVP Q4 PRN PRN Reason: Pain, severe (8-10) Last Admin: 05/30/18 20:54 Dose: 2 mg Ondansetron HCl (Zofran Inj) 4 mg IVP Q6 PRN PRN Reason: Nausea/Vomiting Last Admin: 05/28/18 10:38 Dose: 4 mg Oxycodone/Acetaminophen (Percocet 5/325 Mg Tab) 2 tab PO Q4 PRN PRN Reason: Pain, moderate (4-7) Stop: 06/02/18 10:28 Last Admin: 05/31/18 03:30 Dose: 2 tab Potassium Chloride (K-Dur 20 Meq Er Tab) 20 meq PO DAILY [facility] Last Admin: 05/30/18 08:07 Dose: 20 meq Zolpidem Tartrate (Ambien) 5 mg PO HS PRN PRN Reason: Insomnia Last Admin: 05/31/18 00:19 Dose: 5 mg - Labs Labs: 05/31/18 05:00 05/31/18 05:00 PT 12.1 Seconds (9.8-13.1) 05/25/18 06:15 INR 1.1 05/25/18 06:15 APTT 36.9 Seconds (25.6-37.1) 05/25/18 06:15 - Constitutional Appears: Non-toxic, No Acute Distress - Head Exam Head Exam: ATRAUMATIC, NORMOCEPHALIC - Extremities Exam Additional comments: Right Lower Extremity Exam Vasc: DP/PT pulses palpable 2/4 bilaterally, Cap refill less than 3 secondsto all digits, Temp gradient warm to cool proximal to distal, No edema noted to the right ankle Neuro: Gross and protective sensation intact Derm: moderate non-pitting edema noted to the ankle, Surgical wounds are clean/d ry and intact with no drainage, erythema or any sign of dehiscence. Ortho: Mild pain with ankle range of motion, mild pain on palpation along the perimalleolar area. Muscle power intact 5/5 to all groups. - Neurological Exam Neurological Exam: Alert, Awake, Oriented x3 - Psychiatric Exam Psychiatric exam: Normal Affect, Normal Mood Assessment and Plan - Assessment and Plan (Free Text) Assessment: 62 year old male patient with pain 4 weeks s/p R ankle ORIF. Plan: Patient seen and evaluated at bedside, Plan discussed with Dr. Snow Afebrile, WBC 6.3 Right Ankle X-rays: healing fractures distal right tibia and fibula Patient bear weight OOBTC Patient may WBAT in CAM boot with the use of walker/crutches Continue PT evaluation and treatment Will continue to follow while in house Upon d/c patient to follow up with Dr. Snow in office
--- NOTE | 2018-05-31 08:34 | CP.PCM.PN ---
Subjective - Date & Time of Evaluation Date of Evaluation: 05/31/18 Time of Evaluation: 08:35 - Subjective Subjective: LESS ANXIOUS VSS Objective - Vital Signs/Intake and Output Vital Signs (last 24 hours): Temp Pulse Resp BP Pulse Ox 97.4 F L 77 13 153/80 H 92 L 05/31/18 08:00 05/31/18 08:00 05/31/18 08:00 05/31/18 08:00 05/31/18 08:00 Intake and Output: 05/31/18 05/31/18 06:59 18:59 Intake Total 844 Output Total 1100 Balance -256 - Medications Medications: Current Medications Albuterol/Ipratropium (Duoneb 3 Mg/0.5 Mg (3 Ml) Ud) 3 ml INH RQ6 PRN PRN Reason: Shortness of Breath Last Admin: 05/28/18 10:31 Dose: 3 ml Alprazolam (Xanax) 0.25 mg PO Q12 PRN PRN Reason: Anxiety Stop: 06/06/18 10:26 Last Admin: 05/30/18 23:08 Dose: 0.25 mg Amlodipine Besylate (Norvasc) 10 mg PO DAILY [facility] Last Admin: 05/30/18 08:06 Dose: 10 mg Duloxetine HCl (Cymbalta) 60 mg PO DAILY [facility] Last Admin: 05/30/18 11:14 Dose: 60 mg Hydrochlorothiazide (Microzide) 12.5 mg PO DAILY [facility] Last Admin: 05/30/18 11:13 Dose: 12.5 mg Vancomycin HCl 1 gm/ Sodium (Chloride) 250 mls @ 250 mls/hr IVPB Q12H [facility]; Protocol Last Admin: 05/30/18 20:50 Dose: 250 mls/hr Piperacillin Sod/Tazobactam (Sod 4.5 gm/ Sodium Chloride) 100 mls @ 100 mls/hr IVPB Q8 [facility]; Protocol Last Admin: 05/31/18 00:16 Dose: 100 mls/hr Lisinopril (Zestril) 20 mg PO DAILY [facility] Last Admin: 05/30/18 11:13 Dose: 20 mg Morphine Sulfate (Morphine) 2 mg IVP Q4 PRN PRN Reason: Pain, severe (8-10) Last Admin: 05/30/18 20:54 Dose: 2 mg Ondansetron HCl (Zofran Inj) 4 mg IVP Q6 PRN PRN Reason: Nausea/Vomiting Last Admin: 05/28/18 10:38 Dose: 4 mg Oxycodone/Acetaminophen (Percocet 5/325 Mg Tab) 2 tab PO Q4 PRN PRN Reason: Pain, moderate (4-7) Stop: 06/02/18 10:28 Last Admin: 05/31/18 03:30 Dose: 2 tab Potassium Chloride (K-Dur 20 Meq Er Tab) 20 meq PO DAILY [facility] Last Admin: 05/30/18 08:07 Dose: 20 meq Zolpidem Tartrate (Ambien) 5 mg PO HS PRN PRN Reason: Insomnia Last Admin: 05/31/18 00:19 Dose: 5 mg - Labs Labs: 05/31/18 05:00 05/31/18 05:00 PT 12.1 Seconds (9.8-13.1) 05/25/18 06:15 INR 1.1 05/25/18 06:15 APTT 36.9 Seconds (25.6-37.1) 05/25/18 06:15 - Constitutional Appears: No Acute Distress - Head Exam Head Exam: ATRAUMATIC, NORMAL INSPECTION, NORMOCEPHALIC - Eye Exam Eye Exam: EOMI, Normal appearance, PERRL Pupil Exam: NORMAL ACCOMODATION, PERRL - ENT Exam ENT Exam: Mucous Membranes Moist, Normal Exam - Neck Exam Neck Exam: Full ROM, Normal Inspection. absent: Lymphadenopathy - Respiratory Exam Respiratory Exam: Clear to Ausculation Bilateral, NORMAL BREATHING PATTERN - Cardiovascular Exam Cardiovascular Exam: REGULAR RHYTHM, +S1, +S2. absent: Murmur - GI/Abdominal Exam GI & Abdominal Exam: Soft, Normal Bowel Sounds. absent: Tenderness - Rectal Exam Rectal Exam: NORMAL INSPECTION - Extremities Exam Extremities Exam: Full ROM, Normal Capillary Refill, Normal Inspection. absent: Joint Swelling, Pedal Edema - Back Exam Back Exam: NORMAL INSPECTION - Neurological Exam Neurological Exam: Alert, Awake, CN II-XII Intact, Normal Gait, Oriented x3 - Psychiatric Exam Psychiatric exam: Normal Affect, Normal Mood - Skin Skin Exam: Dry, Intact, Normal Color, Warm Assessment and Plan - Assessment and Plan (Free Text) Assessment: ACUTE KIDNEY INJURY IMPROVED ACUTE HEPATIC INFLAMATION-IMPROVED ANEMIA HX OF PTSD--IMPROVCED WITH MEDS HTN-STABLE PNEUMONIA-IMPROVED S/P R FOOT/ANKLE SURGERY HYPOKALEMIA Plan: AWAIT CANCER RESEARCHER DECISION RE-SUBACUTE CARE/REHAB
[2018-05-31] MEDS: Potassium Chloride 20 mEq ER Tab PO SCH (10:43)
[2018-06-01] MEDS: Piperacillin/Tazobact 4.5 GM in Sodium Chloride 0.9% 100 ML IVPB SCH ×2 (00:48→12:40)
[2018-06-01] MEDS: Oxycodone/Acetaminophen 5/325 mg Tab PO PRN ×3 (03:30→14:01)
[2018-06-01 07:59] VITALS: O2SAT 95
[2018-06-01] MEDS: Potassium Chloride 20 mEq ER Tab PO SCH (09:51)
--- NOTE | 2018-06-01 13:00 | CP.PCM.DIS ---
Provider - Provider Date of Admission: 05/25/18 02:28 Attending physician: Ricci Johnson MD Consults: 05/25/18 02:16 Nephrology Consult Stat Comment: Consulting Provider: Mahnaz Shankar Consulting Physician: Mahnaz Shankar Reason for Consult: acute renal failure 05/25/18 02:28 Podiatry Consult Stat Comment: Consulting Provider: Ray Wisdom Consulting Physician: Ray Wisdom Reason for Consult: recent r foot sx 05/25/18 02:49 Neurology Consult Routine Comment: Consulting Provider: Christophe Marsh Consulting Physician: Christophe Marsh Reason for Consult: Left 7th nerve weakness/AMS 05/25/18 07:36 Case Management Referral Routine Comment: Physician Instructions: Reason For Exam: discharge planning Reason for Referral: Discharge Planning Social Work Referral Routine Comment: discharge planning Physician Instructions: Reason For Exam: discharge planning 05/25/18 11:59 Podiatry Consult Routine Comment: Consulting Provider: Kvng Snow Consulting Physician: Kvng Snow Reason for Consult: PODIATRY CARE Time Spent in preparation of Discharge (in minutes): 30 Diagnosis - Discharge Diagnosis (1) ZURI (acute kidney injury) Status: Acute Priority: High (2) Altered mental status Status: Acute (3) LLL pneumonia Status: Acute Priority: High (4) Rhabdomyolysis Status: Acute (5) Toxic metabolic encephalopathy Status: Acute Priority: High (6) Transaminitis Status: Acute Priority: High (7) Ankle fracture Status: Acute (8) Ankle injury Status: Acute (9) Anxiety Status: Acute (10) DVT prophylaxis Status: Acute Hospital Course - Lab Results Lab Results: Micro Results 05/28/18 09:40 Blood-Venous Blood Culture - Preliminary NO GROWTH AFTER 4 DAYS 05/28/18 09:25 Blood-Venous Blood Culture - Preliminary NO GROWTH AFTER 4 DAYS 05/25/18 07:45 Blood Blood Culture - Final NO GROWTH AFTER 5 DAYS 05/25/18 07:45 Blood Gram Stain - Final TEST NOT PERFORMED 05/25/18 00:30 Blood Blood Culture - Final NO GROWTH AFTER 5 DAYS 05/25/18 00:30 Blood Gram Stain - Final TEST NOT PERFORMED 05/25/18 15:30 Naris MRSA Culture (Admit) - Final MRSA NOT DETECTED 05/25/18 02:11 Urine Random Urine Culture - Final No Growth (<1,000 CFU/ML) Most Recent Lab Values WBC 5.2 K/uL (4.8-10.8) 05/31/18 05:00 RBC 3.14 Mil/uL (4.40-5.90) L 05/31/18 05:00 Hgb 9.8 g/dL (12.0-18.0) L 05/31/18 05:00 Hct 29.7 % (35.0-51.0) L 05/31/18 05:00 MCV 94.6 fl (80.0-94.0) H 05/31/18 05:00 MCH 31.3 pg (27.0-31.0) H 05/31/18 05:00 MCHC 33.1 g/dL (33.0-37.0) 05/31/18 05:00 RDW 14.3 % (11.5-14.5) 05/31/18 05:00 Plt Count 202 K/uL (130-400) 05/31/18 05:00 MPV 9.5 fl (7.2-11.7) 05/25/18 00:30 Neut % (Auto) 48.0 % (50.0-75.0) L 05/25/18 00:30 Lymph % (Auto) 31.6 % (20.0-40.0) 05/25/18 00:30 [place]eld % (Auto) 18.9 % (0.0-10.0) H 05/25/18 00:30 Eos % (Auto) 1.0 % (0.0-4.0) 05/25/18 00:30 Baso % (Auto) 0.5 % (0.0-2.0) 05/25/18 00:30 Neut # (Auto) 3.0 K/uL (1.8-7.0) 05/25/18 00:30 Lymph # (Auto) 2.0 K/uL (1.0-4.3) 05/25/18 00:30 Weld # (Auto) 1.2 K/uL (0.0-0.8) H 05/25/18 00:30 Eos # (Auto) 0.1 K/uL (0.0-0.7) 05/25/18 00:30 Baso # (Auto) 0.0 K/uL (0.0-0.2) 05/25/18 00:30 PT 12.1 Seconds (9.8-13.1) 05/25/18 06:15 INR 1.1 05/25/18 06:15 APTT 36.9 Seconds (25.6-37.1) 05/25/18 06:15 D-Dimer, Quantitative 932 ng/mlDDU (0-230) H 05/25/18 02:11 pCO2 33 mm/Hg (35-45) L 05/25/18 01:52 pO2 84 mm/Hg (80-100) 05/25/18 01:52 HCO3 17.4 mmol/L (21-28) L 05/25/18 01:52 ABG pH 7.29 (7.35-7.45) L 05/25/18 01:52 ABG Total CO2 16.9 mmol/L (22-28) L 05/25/18 01:52 ABG O2 Saturation 97.8 % (95-98) 05/25/18 01:52 ABG Base Excess -9.6 mmol/L (-2.0-3.0) L 05/25/18 01:52 Dane Test Yes 05/25/18 01:52 ABG Potassium 3.7 mmol/L (3.6-5.2) 05/25/18 01:52 A-a O2 Difference 74.0 mm/Hg 05/25/18 01:52 Sodium 131.0 mmol/L (132-148) L 05/25/18 01:52 Chloride 103.0 mmol/L (98-107) 05/25/18 01:52 Glucose 115 mg/dL (75-110) H 05/25/18 01:52 Lactate 0.8 mmol/L (0.7-2.1) 05/25/18 01:52 FiO2 28.0 % 05/25/18 01:52 Sodium 140 mmol/l (132-148) 05/31/18 05:00 Potassium 3.4 MMOL/L (3.6-5.0) L 05/31/18 05:00 Chloride 105 mmol/L (98-107) 05/31/18 05:00 Carbon Dioxide 30 mmol/L (22-30) 05/31/18 05:00 Anion Gap 8 (10-20) L 05/31/18 05:00 BUN 10 mg/dl (9-20) 05/31/18 05:00 Creatinine 0.8 mg/dl (0.8-1.5) 05/31/18 05:00 Est GFR ( Amer) > 60 05/31/18 05:00 Est GFR (Non-Af Amer) > 60 05/31/18 05:00 POC Glucose (mg/dL) 133 mg/dL (65-110) H 05/28/18 10:15 Random Glucose 96 mg/dL (75-110) 05/31/18 05:00 Calcium 8.4 mg/dL (8.4-10.2) 05/31/18 05:00 Phosphorus 5.3 mg/dl (2.5-4.5) H 05/25/18 13:10 Magnesium 2.0 MG/DL (1.6-2.3) 05/25/18 13:10 Total Bilirubin 0.2 mg/dl (0.2-1.3) 05/31/18 05:00 AST 46 U/L (17-59) 05/31/18 05:00 ALT 66 U/L (21-72) 05/31/18 05:00 Alkaline Phosphatase 73 U/L (38-126) 05/31/18 05:00 Ammonia 21 umol/L (9-33) 05/25/18 03:30 Total Creatine Kinase 476 U/L (55-170) H 05/28/18 05:15 Troponin I 0.0170 ng/mL (0.00-0.120) 05/25/18 06:15 Total Protein 5.9 G/DL (6.3-8.2) L 05/31/18 05:00 Albumin 2.6 g/dL (3.5-5.0) L 05/31/18 05:00 Globulin 3.3 gm/dL (2.2-3.9) 05/31/18 05:00 Albumin/Globulin Ratio 0.8 (1.0-2.1) L 05/31/18 05:00 Vitamin B12 716 pg/mL (239-931) 05/25/18 13:10 Folate 15.3 ng/mL 05/25/18 13:10 Arterial Blood Potassium 3.7 mmol/L (3.6-5.2) 05/25/18 01:52 Urine Color Yellow (YELLOW) 05/25/18 23:12 Urine Clarity Clear (Clear) 05/25/18 23:12 Urine pH 5.0 (5.0-8.0) 05/25/18 23:12 Ur Specific [place] 1.014 (1.003-1.030) 05/25/18 23:12 Urine Protein Negative mg/dL (NEGATIVE) 05/25/18 23:12 Urine Glucose (UA) Neg mg/dL (NEGATIVE) 05/25/18 23:12 Urine Ketones Negative mg/dL (NEGATIVE) 05/25/18 23:12 Urine Blood Moderate (NEGATIVE) 05/25/18 23:12 Urine Nitrate Negative (NEGATIVE) 05/25/18 23:12 Urine Bilirubin Negative (NEGATIVE) 05/25/18 23:12 Urine Urobilinogen 0.2-1.0 mg/dL (0.2-1.0) 05/25/18 23:12 Ur Leukocyte Esterase Neg Kaylee/uL (Negative) 05/25/18 23:12 Urine RBC (Auto) 20 /hpf (0-3) H 05/25/18 23:12 Urine Microscopic WBC 2 /hpf (0-5) 05/25/18 23:12 Urine Myoglobin TNP 05/25/18 12:12 Urine Osmolality 420 mosm/kg (300-1000) 05/25/18 14:50 Ur Random Creatinine 44.3 mg/dL 05/25/18 14:50 Ur Random Sodium 27 meq/L 05/25/18 23:12 Ur Random Potassium 49.3 mmol/L 05/25/18 23:12 Random Vancomycin 5.7 ug/mL 05/31/18 11:05 Salicylates < 1.0 mg/dl 05/25/18 02:54 Urine Opiates Screen Negative (NEGATIVE) 05/25/18 04:36 Urine Methadone Screen Negative (NEGATIVE) 05/25/18 04:36 Acetaminophen < 10.0 ug/ml (10.0-30.0) L 05/25/18 02:54 Ur Barbiturates Screen Negative (NEGATIVE) 05/25/18 04:36 Ur Phencyclidine Scrn Negative (NEGATIVE) 05/25/18 04:36 Ur Amphetamines Screen Negative (NEGATIVE) 05/25/18 04:36 U Benzodiazepines Scrn Positive (NEGATIVE) 05/25/18 04:36 U Oth Cocaine Metabols Negative (NEGATIVE) 05/25/18 04:36 U Cannabinoids Screen Negative (NEGATIVE) 05/25/18 04:36 Alcohol, Quantitative < 10 mg/dl (0-10) 05/25/18 02:54 Blood Type O POSITIVE 05/25/18 06:15 Antibody Screen Negative 05/25/18 06:15 BBK History Checked Patient has bt 05/25/18 06:15 - Hospital Course Hospital Course: AWAKE AND ALERT STILL HAS CHRONIC PAIN SOB IMPROVED Discharge Exam - Head Exam Head Exam: ATRAUMATIC, NORMOCEPHALIC - Eye Exam Eye Exam: EOMI, Normal appearance, PERRL Pupil Exam: NORMAL ACCOMODATION, PERRL - GI/Abdominal Exam GI & Abdominal Exam: Normal Bowel Sounds - Rectal Exam Rectal Exam: NORMAL INSPECTION - Extremities Exam Extremities exam: tenderness Additional comments: R FOOT/ANKLE TENDERNESS - Neurological Exam Neurological exam: Alert, CN II-XII Intact, Normal Gait, Oriented x3, Reflexes Normal - Psychiatric Exam Psychiatric exam: Normal Affect, Normal Mood - Skin Skin Exam: Dry, Intact, Normal Color, Warm Discharge Plan - Follow Up Plan Condition: SERIOUS Disposition: HOME/ ROUTINE Additional Instructions: TRANSFER TO SUBACUTE CARE
[2018-06-01 16:58] VITALS: BP 111/68; PULSE 74; RESP 19; TEMP 97.6
== END 2018-06-01 18:06 | DRG 917 ==
LOC: H.ER 22:14 → H.ERHOLD 05-25 02:28 → H.ICU/CCU 05-25 04:20 → H.MEDSURG1 05-31 19:09
PROVIDERS: ADMIT Internal Medicine Pulmonary Disease; ATTEND Internal Medicine Pulmonary Disease
PROC: 06HY33Z Insertion of Infusion Device into Lower Vein, Percutaneous Approach (ICD-10-PCS; principal; 2018-05-25)
DX: T39.1X1A Poisoning by 4-Aminophenol derivatives, accidental (unintentional), initial encounter (principal); N17.0 Acute kidney failure with tubular necrosis; K76.7 Hepatorenal syndrome; G92 Toxic encephalopathy; J18.1 Lobar pneumonia, unspecified organism; M62.82 Rhabdomyolysis; E87.2 Acidosis; E87.6 Hypokalemia; E86.0 Dehydration; E86.1 Hypovolemia; F10.10 Alcohol abuse, uncomplicated; F11.10 Opioid abuse, uncomplicated; G89.29 Other chronic pain; I10 Essential (primary) hypertension; F43.10 Post-traumatic stress disorder, unspecified; G51.0 Bell's palsy; F32.9 Major depressive disorder, single episode, unspecified; D50.8 Other iron deficiency anemias; I95.9 Hypotension, unspecified; M54.2 Cervicalgia; M79.671 Pain in right foot; Z98.890 Other specified postprocedural states; E78.5 Hyperlipidemia, unspecified; F41.9 Anxiety disorder, unspecified; M19.90 Unspecified osteoarthritis, unspecified site; Z87.81 Personal history of (healed) traumatic fracture; Y92.9 Unspecified place or not applicable

== ENCOUNTER 2018-06-14 08:56 | Emergency (ER) | payer MEDICARE, OTHER ==
[2018-06-14 09:06] VITALS: BMI 29.9
[2018-06-14 09:10] VITALS: O2SAT 93
[2018-06-14] MEDS ORDERED: Naloxone 0.4 mg/ml Inj (Adult) ONE (09:16)
[2018-06-14] MEDS ORDERED: Naloxone 0.4 mg/ml Inj (Adult) IVP STA (09:24)
[2018-06-14] MEDS ORDERED: Sodium Chloride 0.9% 1,000 ML IV STA ×2 (09:25)
--- NOTE | 2018-06-14 09:46 | ED PDOC ---
HPI: Chest Pain Time Seen by Provider: 06/14/18 09:11 Chief Complaint (Provider): Chest pain History Per: Patient, EMS History/Exam Limitations: no limitations Onset/Duration Of Symptoms: Hrs Current Symptoms Are (Timing): Still Present Additional Complaint(s): Suraj Ford is a 62 year old male, with a past medical history of HTN, who was [place] the emergency department [place]. Per EMS, patient initially appeared well but became tachycardic and blood pressure was low in the ambulance. On arrival to ED, patient is only arousable to verbal stimuli. Unable to obtain full history from patient due to clinical condition. PMD: None provided. Past Medical History Reviewed: Historical Data, Nursing Documentation, Vital Signs Vital Signs: Last Vital Signs Temp 98.7 F 06/14/18 09:09 Pulse 109 H 06/14/18 09:09 Resp 18 06/14/18 09:09 BP 91/38 L 06/14/18 09:09 Pulse Ox 93 L 06/14/18 09:09 - Medical History PMH: Anemia, Anxiety, Arthritis, Back Problems, Depression, Fractures, HTN, Post Traumatic Stress Disorder, Chronic Pain (neck) Denies: Chronic Kidney Disease - Surgical History Surgical History: Appendectomy, Back Surgery, Cholecystectomy, Hernia Repair - Family History Family History: States: Unknown Family Hx - Immunization History Hx Tetanus Toxoid Vaccination: Yes Hx Influenza Vaccination: No Hx Pneumococcal Vaccination: No - Home Medications Home Medications: Ambulatory Orders Medication Instructions Recorded Prazosin HCl [Minipress] 2 mg PO HS 02/06/18 DULoxetine [Cymbalta] 60 mg PO DAILY 02/20/18 diaZEpam [Valium] 10 mg PO BID 02/20/18 Benazepril/Hydrochlorothiazide 1 tab PO DAILY 05/01/18 [Benazepril-Hctz 20-12.5 mg Tab] Zolpidem [Ambien] 10 mg PO HS PRN 05/01/18 tiZANidine [Zanaflex] 4 mg PO HS PRN 05/01/18 Oxycodone HCl/Acetaminophen 1 each PO Q6 #16 tablet 05/21/18 [Percocet 10-325 mg Tablet] - Allergies Allergies/Adverse Reactions: Allergies Allergy/AdvReac Type Severity Reaction Status Date / Time No Known Allergies Allergy Verified 03/14/19 23:42 Review of Systems Review Of Systems: ROS cannot be obtained secondary to pt's inabilty to answer questions. Physical Exam - Reviewed Nursing Documentation Reviewed: Yes Vital Signs Reviewed: Yes - Physical Exam Appears: Positive for: No Acute Distress Head Exam: Positive for: ATRAUMATIC (no signs of gross trauma), NORMAL INSPECTION, NORMOCEPHALIC Skin: Positive for: Normal Color, Warm, Dry Eye Exam: Positive for: Normal appearance, EOMI. Negative for: PERRL (pinpoint bilaterally) Neck: Positive for: Normal, Painless ROM Cardiovascular/Chest: Positive for: Tachycardia (regular rhythm) Respiratory: Positive for: Normal Breath Sounds (clear to auscultation). Negative for: Respiratory Distress Gastrointestinal/Abdominal: Positive for: Normal Exam, Soft. Negative for: Tenderness Back: Positive for: Normal Inspection Extremity: Positive for: Normal ROM. Negative for: Deformity, Swelling Neurological/Psych: Positive for: Awake, Alert (arousable to verbal stimuli), Normal Tone, Oriented (x1), Other (No obvious neurological deficits). Negative for: Motor/Sensory Deficits, Facial Droop - ECG O2 Sat by Pulse Oximetry: 93 (RA) Pulse Ox Interpretation: Abnormal - Critical Care Total Time (In Min): 45 Documented Critical Care: Time excludes all time spent performint seperately billable procedures Medical Decision Making Medical Decision Making: Time: 09:11 Initial Impression: Chest pain, substance abuse Initial Plan: --EKG --Alcohol serum --CMP --Drug screen, urine --Troponin I --Urine dipstick --CBC w/ differential --PTT --PT --NaCl 1,000 ml IV 1,000 mls/hr x2 --Narcan 0.4mg --Urinalysis --Reevaluation 09:15 -Patient was given 0.4mg Narcan after which he opened his eyes spontaneously. Patient is AOEX3. He denies any chest pain, shortness of breath or drug abuse. -EKG: Sinus tachycardia at 120 bpm, no ST/T changes. 09:30 -Patient got out of bed stating he wanted to leave and has appointments to get to. Patient walks with cane and has steady gait. Patient refused to sign AMA papers and ambulated out of the ED. This patient is choosing to leave against medical advice. The EP has personally explained to the pt that choosing to do so may result in permanent bodily harm or . The EP discussed at great length that without further evaluation and monitoring there may be unforeseen circumstances and/or deterioration causing permanent bodily harm or as a result of their choice. The pt verbalized these risks back to the physician in laymans terms. The pt is alert, oriented, and shows the mental capacity to make clear decisions regarding the pts health care at this time. The pt continues to wish to leave against medical advice. In light of the pts decision to leave AMA, follow-up has been arranged and the pt is aware of the importance of following up as instructed. The pt has been advised that they should return to the ED immediately if they change their mind at any time, or if their condition begins to change or worsen in any way. Scribe Attestation: Documented by Jeffry Peña, acting as a scribe Kody Blas MD Provider Scribe Attestation: All medical record entries made by the Scribe were at my direction and personally dictated by me. I have reviewed the chart and agree that the record accurately reflects my personal performance of the history, physical exam, medical decision making, and the department course for this patient. I have also personally directed, reviewed, and agree with the discharge instructions and disposition. Disposition - Clinical Impression Clinical Impression: Chest pain, Hypotension - Disposition Disposition: Against Medical Advice Disposition Time: 09:30 Condition: UNKNOWN Forms: [employer] (Thai)
[2018-06-14 09:53] VITALS: PULSE 110; RESP 14; TEMP 97.1
[2018-06-14 09:58] VITALS: BP 64/41
--- NOTE | 2018-06-14 19:05 | CARD ---
APPROVED REPORT Date of service: 06/14/2018 EKG Measurement Heart [id number] <Conclusion> Sinus tachycardia Otherwise normal ECG
== END 2018-06-14 10:08 | disposition left against medical advice (07) ==
LOC: H.ER 08:56
DX: R07.89 Other chest pain (principal); I95.9 Hypotension, unspecified; F43.10 Post-traumatic stress disorder, unspecified; G89.29 Other chronic pain; I10 Essential (primary) hypertension
CPT/HCPCS: 82948; 93005; 96374; 99285; J2310; J7030